=== PATIENT | male | born 1955 | race African-American/Black ===

== ENCOUNTER 2016-08-23 11:55 | Inpatient (IN) | payer OTHER ==
[2016-08-23 12:51] VITALS: BMI 25.2
--- NOTE | 2016-08-23 15:13 | HP ---
CIWA Score - CIWA Score Nausea/Vomitin Muscle Tremors: 1-None Visible, but [place] Anxiety: 2 Agitation: 2 Paroxysmal Sweats: 2 Orientation: 0-Oriented Tacttile Disturbances: 1-Very Mild Itch/Numbness Auditory Disturbances: 0-None Visual Disturbances: 0-None Headache: 0-None Present CIWA-Ar Total Score: 11 Admission ROS BHS - HPI Chief Complaint: I need help to stop smoking and drinking Allergies/Adverse Reactions: Allergies Allergy/AdvReac Type Severity Reaction Status Date / Time No Known Allergies Allergy Verified 08/23/16 14:01 History of Present Illness: 61 y/o m pt with a h/o chronic alcoholism and crack dep. Exam Limitations: No Limitations - Ebola screening Have you traveled outside of the country in the last 21 days: No Have you had contact with anyone from an Ebola affected area: No Have you been sick,other than usual withdrawal symptoms: No Do you have a fever: No - Review of Systems Constitutional: Night Sweats, Changes in sleep, Unintentional Wgt. Loss (15 lbs x 6 months) EENT: reports: Dental Problems (multiple missing tetth) Respiratory: reports: Shortness of Breath Cardiac: reports: No Symptoms Reported GI: reports: Nausea Integumentary: reports: No Symptoms Reported Neuro: reports: Tremors Endocrine: reports: No Symptoms Reported Psychiatric: reports: No Sypmtoms Reported Other Systems: Reviewed and Negative Patient History - Patient Medical History Hx Anemia: No Hx Asthma: No Hx Chronic Obstructive Pulmonary Disease (COPD): No Hx Cancer: No Hx Cardiac Disorders: No Hx Congestive Heart Failure: No Hx Hypertension: Yes Hx Hypercholesterolemia: Yes Hx Pacemaker: No HX Cerebrovascular Accident: No Hx Seizures: No Hx Dementia: No Hx Diabetes: No Hx Gastrointestinal Disorders: No Hx Liver Disease: No Hx Genitourinary Disorders: No Hx Sexually Transmitted Disorders: No Hx Renal Disease (ESRD): No Hx Thyroid Disease: No Hx Human Immunodeficiency Virus (HIV): No Hx Hepatitis C: No Hx Depression: No Hx Suicide Attempt: No Hx Bipolar Disorder: No Hx Schizophrenia: No - Patient Surgical History Past Surgical History: No Hx Neurologic Surgery: No Hx Cataract Extraction: No Hx Cardiac Surgery: No Hx Lung Surgery: No Hx Breast Surgery: No Hx Breast Biopsy: No Hx Abdominal Surgery: No Hx Appendectomy: No Hx Cholecystectomy: No Hx Genitourinary Surgery: No Hx Section: No Hx Orthopedic Surgery: No Anesthesia Reaction: No - PPD History Previous Implant?: Yes Documented Results: Positive w/o proof - Reproductive History Patient is a Female of Child Bearing Age (11 -55 yrs old): No - Smoking Cessation Smoking history: Current every day smoker Have you smoked in the past 12 months: Yes Aproximately how many cigarettes per day: 7 Hx Chewing Tobacco Use: No Initiated information on smoking cessation: Yes 'Breaking Loose' booklet given: 08/23/16 - Substance & Tx. History Hx Alcohol Use: Yes Hx Substance Use: Yes Substance Use Type: Alcohol, Cocaine Hx Substance Use Treatment: Yes - Substances Abused Crack Route: Smoking Frequency: Daily Amount used: $100 Age of first use: 32 Date of Last Use: 08/22/16 Alcohol-beer Route: Oral Frequency: Daily Amount used: 2-6 pks. Age of first use: 11 Date of Last Use: 08/23/16 Marijuana Route: Smoking Frequency: 3-6 times per week Amount used: $20 Age of first use: 13 Date of Last Use: 08/22/16 Family Disease History - Family Disease History Family Disease History: Other: Mother (cva- ) Admission Physical Exam BHS - Vital Signs Vital Signs: Vital Signs - 24 hr 08/23/16 12:49 Temperature 97.2 F L Pulse Rate 94 H Respiratory 20 Rate Blood Pressure 127/78 61 y/o m pt aox3 in nad ambulating cooperating with exam. - Physical General Appearance: Yes: Disheveled, Thin, Anxious HEENTM: Yes: EOMI, Hearing grossly Normal, Normocephalic, Normal Voice, TRACY Respiratory: Yes: Chest Non-Tender, Lungs Clear, Normal Breath Sounds, No Respiratory Distress Neck: Yes: Supple Breast: Yes: Within Normal Limits Cardiology: Yes: Regular Rhythm, Regular Rate, S1, S2 Abdominal: Yes: Non Tender, Flat, Soft, Increased Bowel Sounds Genitourinary: Yes: Within Normal Limits Back: Yes: Decreased Range of Motion Musculoskeletal: Yes: Muscle Pain Extremities: Yes: Tremors (mild) Neurological: Yes: peanut shaker II-XII NML intact, Fully Oriented, Alert, Motor Strength 5/5, Normal Response, Sensory Deficit Integumentary: Yes: Moist, Other (tatoos on arms srikanth) Lymphatic: Yes: Within Normal Limits - Diagnostic (1) Alcohol dependence with uncomplicated withdrawal Current Visit: Yes Status: Chronic (2) Crack cocaine use Current Visit: Yes Status: Chronic (3) Cannabis abuse Current Visit: Yes Status: Chronic (4) Nicotine dependence Current Visit: Yes Status: Chronic Qualifiers: Nicotine product type: cigarettes Substance use status: uncomplicated Qualified Code(s): F17.210 - Nicotine dependence, cigarettes, uncomplicated Cleared for Admission [facility] - Detox or Rehab [facility] Level of Care: Medically Managed Detox Regimen/Protocol: Valium [facility] Breath Alcohol Content Breath Alcohol Content: 0.028 Urine Drug Screen - Results Drug Screen Negative: No Urine Drug Screen Results: THC-Marijuana, PUNEET-Cocaine
[2016-08-23] MEDS ORDERED: hydrOXYzine PAMOATE 25 MG CAPSULE (FP) PO PRN (15:26)
[2016-08-23] MEDS ORDERED: MAGNESIUM HYDROX 2400MG/30ML ORAL SUSPENSION 30 ML CUP PO PRN (15:26)
[2016-08-23] MEDS ORDERED: LOPERAMIDE HCL 2 MG CAPSULE PO PRN (15:26)
[2016-08-23] MEDS ORDERED: P-EPHED 60MG/TRIPROLIDI 2.5MG TABLET PO PRN (15:26)
[2016-08-23] MEDS ORDERED: guaiFENesin/D-METHORPHAN HB 10 ML UNIT-DOSE CUPS PO PRN (15:26)
[2016-08-23] MEDS ORDERED: ACETAMINOPHEN 325 MG TABLET (FP) PO PRN (15:26)
[2016-08-23] MEDS ORDERED: diazePAM 5 MG TABLET PO PRN (15:26)
[2016-08-23] MEDS ORDERED: MAG HYDROX/AL HYDROX/SIMETH 30 ML UNIT-DOSE CUP PO PRN (15:26)
[2016-08-23] MEDS ORDERED: IBUPROFEN 400 MG TABLET (FP) PO PRN (15:26)
[2016-08-23] MEDS ORDERED: NICOTINE POLACRILEX 2 MG GUM BUC PRN (15:26)
[2016-08-23] MEDS ORDERED: MENTHOL/PHENOL 1 EACH UD MM PRN (15:26)
[2016-08-23] MEDS ORDERED: MAGNESIUM CITRATE 300 ML BOTTLE PO PRN (15:26)
[2016-08-23] MEDS ORDERED: diazePAM 5 MG TABLET PO ONE (15:33)
[2016-08-23] MEDS: THIAMINE HCL 100 MG TABLET (FP) PO SCH (22:26)
[2016-08-23] MEDS: diazePAM 5 MG TABLET PO SCH (22:26)
[2016-08-23] MEDS: diphenhydrAMINE HCL 50 MG CAPSULE PO PRN (22:26)
[2016-08-24] MEDS: diazePAM 5 MG TABLET PO SCH ×3 (05:53→22:30)
[2016-08-24] MEDS: PRENATAL VITAMINS W/ FOLIC ACID TABLET (FP) PO SCH (10:19)
[2016-08-24] MEDS: NICOTINE 7 MG/24 HOURS TOPICAL PATCH TD SCH (10:20)
--- NOTE | 2016-08-24 10:30 | PN ---
S CIWA - CIWA Score Nausea/Vomitin Muscle Tremors: 2 Anxiety: 2 Agitation: 2 Paroxysmal Sweats: 2 Orientation: 0-Oriented Tacttile Disturbances: 1-Very Mild Itch/Numbness Auditory Disturbances: 0-None Visual Disturbances: 0-None Headache: 0-None Present CIWA-Ar Total Score: 11 BHS Progress Note (SOAP) Subjective: interrupted sleep, but feeling better Objective: 08/24/16 10:25 08/24/16 10:30 Vital Signs Temperature 97.2 F L 08/24/16 09:38 Pulse Rate 80 08/24/16 09:38 Respiratory Rate 18 08/24/16 09:38 Blood Pressure 136/89 08/24/16 09:38 O2 Sat by Pulse Oximetry (%) pending labs pt aox3 in nad ambulating Assessment: 08/24/16 10:30 withdrawal sx's Plan: cont. detox increase fluids f/up pending labs
[2016-08-24 10:43] LABS: MCH 34.9 pg (25.7-33.7); MCHC 34.2 g/dl (32.0-35.9); PLATELET COUNT 255 K/MM3 (134-434); RDW 12.3 % (11.9-15.9); WHITE BLOOD COUNT 8.1 K/mm3 (4.0-10.0)
[2016-08-24 10:56] LABS: ALBUMIN 3.9 g/dl (3.4-5.0); BILIRUBIN,TOTAL 0.4 mg/dL (0.2-1.0); CALCIUM 9.6 mg/dL (8.5-10.1); COCKROFT - GAULT 55.07; CREATININE 1.5 mg/dL (0.7-1.3); TOT PROT 7.8 g/dl (6.4-8.2)
--- NOTE | 2016-08-24 13:22 | EKG ---
Test Reason : Blood Pressure : / mmHG Vent. Rate : 080 BPM Atrial Rate : 080 BPM P-R Int : 190 ms QRS Dur : 140 ms QT Int : 406 ms P-R-T Axes : 080 065 045 degrees QTc Int : 468 ms NORMAL SINUS RHYTHM RIGHT BUNDLE BRANCH BLOCK ABNORMAL ECG NO PREVIOUS ECGS AVAILABLE Confirmed by KADEN SHEN MD ([id number]) on 08/24/2016 1:22:30 PM Referred By: Confirmed By:KADEN SHEN MD
[2016-08-24 16:30] LABS: URINE APPEARANCE CLEAR; URINE BILIRUBIN NEGATIVE (NEGATIVE); URINE COLOR LTYELLOW; URINE GLUCOSE (UA) NEGATIVE (NEGATIVE); URINE KETONE NEGATIVE (NEGATIVE); URINE LEUK ESTERASE NEGATIVE (NEGATIVE); URINE NITRITE NEGATIVE (NEGATIVE); URINE PROTEIN NEGATIVE (NEGATIVE); URINE UROBILINOGEN NEGATIVE E.U./dl (0.2-1.0)
[2016-08-24 16:50] LABS: URINE BLOOD 1+ (NEGATIVE)
[2016-08-24 17:10] LABS: URINE MUCUS RARE; URINE RBC <1 /hpf (0-3); URINE WBC 2 /hpf (3-5)
[2016-08-24] MEDS: diphenhydrAMINE HCL 50 MG CAPSULE PO PRN (22:29)
[2016-08-24] MEDS: THIAMINE HCL 100 MG TABLET (FP) PO SCH (22:31)
[2016-08-25] MEDS: PRENATAL VITAMINS W/ FOLIC ACID TABLET (FP) PO SCH (10:18)
[2016-08-25] MEDS: diazePAM 5 MG TABLET PO SCH ×2 (10:18→22:29)
[2016-08-25] MEDS: NICOTINE 7 MG/24 HOURS TOPICAL PATCH TD SCH (10:20)
[2016-08-25] MEDS: THIAMINE HCL 100 MG TABLET (FP) PO SCH (22:29)
[2016-08-25] MEDS: diphenhydrAMINE HCL 50 MG CAPSULE PO PRN (22:29)
--- NOTE | 2016-08-26 08:59 | PN ---
[facility] CIWA - CIWA Score Nausea/Vomitin-No Nausea/No Vomiting Muscle Tremors: 3 Anxiety: 3 Agitation: 2 Paroxysmal Sweats: 2 Orientation: 0-Oriented Tacttile Disturbances: 0-None Auditory Disturbances: 0-None Visual Disturbances: 0-None Headache: 0-None Present CIWA-Ar Total Score: 10 S Progress Note (SOAP) Subjective: sweats interrupted sleep body aches Objective: 08/25/16 08:57 Vital Signs Temperature 97.5 F L 08/26/16 06:23 Pulse Rate 64 08/26/16 06:23 Respiratory Rate 18 08/26/16 06:23 Blood Pressure 133/87 08/26/16 06:23 O2 Sat by Pulse Oximetry (%) Laboratory Tests 08/24/16 08/24/16 08/24/16 06:00 06:00 06:00 WBC 8.1 RBC 4.28 Hgb 14.9 Hct 43.6 MCV 102.0 H MCHC 34.2 RDW 12.3 Plt Count 255 MPV 12.0 H Sodium 141 Potassium 3.8 Chloride 103 Carbon Dioxide 28 Anion Gap 10 BUN 14 Creatinine 1.5 H Creat Clearance w eGFR 47.58 Random Glucose 72 L Calcium 9.6 Total Bilirubin 0.4 AST 29 ALT 25 Alkaline Phosphatase 93 Total Protein 7.8 Albumin 3.9 Urine Color Urine Appearance Urine pH Ur Specific [place] Urine Protein Urine Glucose (UA) Urine Ketones Urine Blood Urine Nitrite Urine Bilirubin Urine Urobilinogen Ur Leukocyte Esterase Urine RBC Urine WBC Ur Epithelial Cells Urine Mucus RPR Titer Nonreactive 08/24/16 15:57 WBC RBC Hgb Hct MCV MCHC RDW Plt Count MPV Sodium Potassium Chloride Carbon Dioxide Anion Gap BUN Creatinine Creat Clearance w eGFR Random Glucose Calcium Total Bilirubin AST ALT Alkaline Phosphatase Total Protein Albumin Urine Color Ltyellow Urine Appearance Clear Urine pH 5.0 Ur Specific [place] 1.015 Urine Protein Negative Urine Glucose (UA) Negative Urine Ketones Negative Urine Blood 1+ H Urine Nitrite Negative Urine Bilirubin Negative Urine Urobilinogen Negative Ur Leukocyte Esterase Negative Urine RBC <1 Urine WBC 2 Ur Epithelial Cells Rare Urine Mucus Rare RPR Titer awake/alert ambulating no acute distress Assessment: 08/25/16 08:58 withdrawal sx Plan: continue detox increase fluids
--- NOTE | 2016-08-26 09:03 | PN ---
S Progress Note (SOAP) Subjective: ALERT,IRRITABLE,ANXIOUS,INTERRUPTED SLEEP, Objective: 08/26/16 09:02 Vital Signs Temperature 97.5 F L 08/26/16 06:23 Pulse Rate 64 08/26/16 06:23 Respiratory Rate 18 08/26/16 06:23 Blood Pressure 133/87 08/26/16 06:23 O2 Sat by Pulse Oximetry (%) Assessment: 08/26/16 09:02 WITHDRAWAL SYMPTOM Plan: CONTINUE DETOX,DISCHARGE IN AM
[2016-08-26] MEDS: diazePAM 5 MG TABLET PO SCH ×2 (10:17→22:29)
[2016-08-26] MEDS: PRENATAL VITAMINS W/ FOLIC ACID TABLET (FP) PO SCH (10:17)
[2016-08-26] MEDS: NICOTINE 7 MG/24 HOURS TOPICAL PATCH TD SCH (10:18)
[2016-08-26] MEDS: diphenhydrAMINE HCL 50 MG CAPSULE PO PRN (22:29)
[2016-08-26] MEDS: THIAMINE HCL 100 MG TABLET (FP) PO SCH (22:29)
[2016-08-27 06:33] VITALS: BP 120/81; PULSE 68; TEMP 97.5
[2016-08-27] MEDS ORDERED: diazePAM 5 MG TABLET PO SCH (10:00)
--- NOTE | 2016-08-27 15:04 | DS ---
[facility] Detox Discharge Summary Admission Date: 08/23/16 Discharge Date: 08/27/16 - History Present History: Alcohol Dependence, Cannabis Dependence Pertinent Past History: HTN, HLD - Physical Exam Results Vital Signs: Vital Signs Temperature 97.5 F L 08/27/16 06:00 Pulse Rate 68 08/27/16 06:00 Respiratory Rate 18 08/27/16 06:00 Blood Pressure 120/81 08/27/16 06:00 O2 Sat by Pulse Oximetry (%) Pertinent Admission Physical Exam Findings: withdrawal sx Laboratory Last Values WBC 8.1 K/mm3 (4.0-10.0) 08/24/16 06:00 RBC 4.28 M/mm3 (4.00-5.60) 08/24/16 06:00 Hgb 14.9 GM/dL (11.7-16.9) 08/24/16 06:00 Hct 43.6 % (35.4-49) 08/24/16 06:00 MCV 102.0 fl (80-96) H 08/24/16 06:00 MCHC 34.2 g/dl (32.0-35.9) 08/24/16 06:00 RDW 12.3 % (11.9-15.9) 08/24/16 06:00 Plt Count 255 K/MM3 (134-434) 08/24/16 06:00 MPV 12.0 fl (7.5-11.1) H 08/24/16 06:00 Sodium 141 mmol/L (136-145) 08/24/16 06:00 Potassium 3.8 mmol/L (3.5-5.1) 08/24/16 06:00 Chloride 103 mmol/L (98-107) 08/24/16 06:00 Carbon Dioxide 28 mmol/L (21-32) 08/24/16 06:00 Anion Gap 10 (8-16) 08/24/16 06:00 BUN 14 mg/dL (7-18) 08/24/16 06:00 Creatinine 1.5 mg/dL (0.7-1.3) H 08/24/16 06:00 Creat Clearance w eGFR 47.58 (>60) 08/24/16 06:00 Random Glucose 72 mg/dL (74-106) L 08/24/16 06:00 Calcium 9.6 mg/dL (8.5-10.1) 08/24/16 06:00 Total Bilirubin 0.4 mg/dL (0.2-1.0) 08/24/16 06:00 AST 29 U/L (15-37) 08/24/16 06:00 ALT 25 U/L (12-78) 08/24/16 06:00 Alkaline Phosphatase 93 U/L (45-117) 08/24/16 06:00 Total Protein 7.8 g/dl (6.4-8.2) 08/24/16 06:00 Albumin 3.9 g/dl (3.4-5.0) 08/24/16 06:00 Urine Color Ltyellow 08/24/16 15:57 Urine Appearance Clear 08/24/16 15:57 Urine pH 5.0 (5.0-8.0) 08/24/16 15:57 Ur Specific [place] 1.015 (1.001-1.035) 08/24/16 15:57 Urine Protein Negative (NEGATIVE) 08/24/16 15:57 Urine Glucose (UA) Negative (NEGATIVE) 08/24/16 15:57 Urine Ketones Negative (NEGATIVE) 08/24/16 15:57 Urine Blood 1+ (NEGATIVE) H 08/24/16 15:57 Urine Nitrite Negative (NEGATIVE) 08/24/16 15:57 Urine Bilirubin Negative (NEGATIVE) 08/24/16 15:57 Urine Urobilinogen Negative E.U./dl (0.2-1.0) 08/24/16 15:57 Ur Leukocyte Esterase Negative (NEGATIVE) 08/24/16 15:57 Urine RBC <1 /hpf (0-3) 08/24/16 15:57 Urine WBC 2 /hpf (3-5) 08/24/16 15:57 Ur Epithelial Cells Rare /hpf (FEW) 08/24/16 15:57 Urine Mucus Rare 08/24/16 15:57 RPR Titer Nonreactive (NONREACTIVE) 08/24/16 06:00 Labs noted - Treatment Hospital Course: Detox Protocol Followed, Detoxed Safely, Responded well, Discharged Condition Good - Medication Discharge Medications: Ambulatory Orders Unobtainable [Unobtainable] 08/23/16 - Diagnosis (1) Alcohol dependence with uncomplicated withdrawal Status: Acute (2) Cannabis abuse Status: Acute (3) Crack cocaine use Status: Acute (4) Nicotine dependence Status: Acute Qualifiers: Nicotine product type: cigarettes Substance use status: uncomplicated Qualified Code(s): F17.210 - Nicotine dependence, cigarettes, uncomplicated - AMA Did Patient Leave Against Medical Advice: No
== END 2016-08-27 09:42 | disposition home or self-care (01) | DRG 774 ==
LOC: YASAS 11:55 → Y6N 14:36
PROVIDERS: ADMIT Internal Medicine Addiction Medicine; ATTEND Internal Medicine Addiction Medicine
PROC: HZ2ZZZZ Detoxification Services for Substance Abuse Treatment (ICD-10-PCS; principal; 2016-08-27)
DX: F10.230 Alcohol dependence with withdrawal, uncomplicated (principal); F14.20 Cocaine dependence, uncomplicated; F17.210 Nicotine dependence, cigarettes, uncomplicated; F12.20 Cannabis dependence, uncomplicated; E78.00 Pure hypercholesterolemia, unspecified
CPT/HCPCS: 36415; 71010-TC; 80053; 81003; 81015; 85027; 86593; 93005; 93010

== ENCOUNTER 2017-06-23 13:50 | Inpatient (IN) | payer OTHER ==
[2017-06-23 17:51] VITALS: BMI 26.1
--- NOTE | 2017-06-23 21:54 | HP ---
CIWA Score - CIWA Score Nausea/Vomitin Muscle Tremors: 4-Moderate,w/Arms Extend Anxiety: 4-Mod. Anxious/Guarded Agitation: 4-Moderately Restless Paroxysmal Sweats: 1-Minimal Palms Moist Orientation: 1-Uncertain about Date Tacttile Disturbances: 0-None Auditory Disturbances: 0-None Visual Disturbances: 0-None Headache: 2-Mild CIWA-Ar Total Score: 18 Admission ROS S - HPI Chief Complaint: Alcohol withdrawal symptoms Allergies/Adverse Reactions: Allergies Allergy/AdvReac Type Severity Reaction Status Date / Time No Known Allergies Allergy Verified 06/23/17 21:46 History of Present Illness: 62 years old male with a long history of alcohol withdrawal is seeking admission to detox. Patient has been in previous detox and reports 10 years of sobriety, when he was in assisted. He has medical history of HTN and hypercholesterolemia and is not currently on any prescribed medication. He denies suicidal ideation at this time. Exam Limitations: No Limitations - Ebola screening Have you traveled outside of the country in the last 21 days: No (N) Have you had contact with anyone from an Ebola affected area: No Have you been sick,other than usual withdrawal symptoms: No Do you have a fever: No - Review of Systems Constitutional: Loss of Appetite, Malaise, Night Sweats, Changes in sleep EENT: reports: No Symptoms Reported Respiratory: reports: No Symptoms reported Cardiac: reports: No Symptoms Reported GI: reports: Poor Appetite, Poor Fluid Intake, Abdominal cramping : reports: No Symptoms Reported Musculoskeletal: reports: Back Pain, Muscle Pain, Muscle Weakness Neuro: reports: Tingling, Tremors Endocrine: reports: No Symptoms Reported Hematology: reports: No Symptoms Reported Psychiatric: reports: Mood/Affect Appropiate, Orientated x3 Other Systems: Reviewed and Negative Patient History - Patient Medical History Hx Anemia: No Hx Asthma: No Hx Chronic Obstructive Pulmonary Disease (COPD): No Hx Cancer: No Hx Cardiac Disorders: No Hx Congestive Heart Failure: No Hx Hypertension: Yes (Not on medication) Hx Hypercholesterolemia: Yes (Not on medication) Hx Pacemaker: No HX Cerebrovascular Accident: No Hx Seizures: No Hx Dementia: No Hx Diabetes: No Hx Gastrointestinal Disorders: No Hx Liver Disease: No Hx Genitourinary Disorders: No Hx Sexually Transmitted Disorders: No Hx Renal Disease (ESRD): No Hx Thyroid Disease: No Hx Human Immunodeficiency Virus (HIV): No (Negative September 2016) Hx Hepatitis C: No Hx Depression: No Hx Suicide Attempt: No (Denies suicidal ideation at this time) Hx Bipolar Disorder: No Hx Schizophrenia: No - Patient Surgical History Past Surgical History: No Hx Neurologic Surgery: No Hx Cataract Extraction: No Hx Cardiac Surgery: No Hx Lung Surgery: No Hx Abdominal Surgery: No Hx Appendectomy: No Hx Cholecystectomy: No Hx Genitourinary Surgery: No Hx Orthopedic Surgery: No Anesthesia Reaction: No - PPD History Previous Implant?: No (POASITIVE PPD, INH for A year) Implanted On Prior [facility] Admission?: No PPD to be Administered?: No - Reproductive History Patient is a Female of Child Bearing Age (11 -55 yrs old): No (MALE) - Smoking Cessation Smoking history: Current every day smoker Have you smoked in the past 12 months: Yes Aproximately how many cigarettes per day: 7 Hx Chewing Tobacco Use: No Initiated information on smoking cessation: Yes 'Breaking Loose' booklet given: 06/23/17 - Substance & Tx. History Hx Alcohol Use: Yes Hx Substance Use: Yes Substance Use Type: Cocaine, Marijuana Hx Substance Use Treatment: Yes ([facility]) - Substances Abused Alcohol Route: Oral Frequency: Daily Amount used: Beer- 2-6pks Age of first use: 32 Date of Last Use: 06/22/17 Cocaine Route: Smoking Frequency: Daily Amount used: $100-200 Age of first use: 11 Date of Last Use: 06/22/17 Marijuana/Hashish Route: Smoking Frequency: 1-2 times per week Amount used: 2 [place] Age of first use: 11 Date of Last Use: 06/22/17 Family Disease History - Family Disease History Family Disease History: Other: Mother (cva- ) Admission Physical Exam S - Vital Signs Vital Signs: Vital Signs - 24 hr 06/23/17 17:49 Temperature 95.7 F L Pulse Rate 82 Respiratory 20 Rate Blood Pressure 134/81 - Physical General Appearance: Yes: Moderate Distress HEENTM: Yes: Normal ENT Inspection, Normal Voice, TRACY Respiratory: Yes: Lungs Clear, Normal Breath Sounds, No Respiratory Distress Neck: Yes: Supple Breast: Yes: Breast Exam Deferred Cardiology: Yes: Regular Rhythm, Regular Rate, S1, S2 Abdominal: Yes: Normal Bowel Sounds, Soft Genitourinary: Yes: Within Normal Limits Back: Yes: Normal Inspection Musculoskeletal: Yes: Muscle Pain Neurological: Yes: Alert, Normal Mood/Affect Integumentary: Yes: Dry Lymphatic: Yes: Within Normal Limits - Diagnostic (1) Hypertension Current Visit: Yes Status: Chronic (2) Hypercholesteremia Current Visit: Yes Status: Chronic (3) Alcohol dependence with uncomplicated withdrawal Current Visit: Yes Status: Chronic (4) Cannabis abuse Current Visit: Yes Status: Chronic (5) Crack cocaine use Current Visit: Yes Status: Chronic (6) Nicotine dependence Current Visit: Yes Status: Chronic Qualifiers: Nicotine product type: cigarettes Substance use status: uncomplicated Qualified Code(s): F17.210 - Nicotine dependence, cigarettes, uncomplicated BHS Breath Alcohol Content Breath Alcohol Content: 0 Urine Drug Screen - Results Drug Screen Negative: No Urine Drug Screen Results: THC-Marijuana, PUNEET-Cocaine
[2017-06-23] MEDS ORDERED: MAG HYDROX/AL HYDROX/SIMETH 30 ML UNIT-DOSE CUP PO PRN (22:04)
[2017-06-23] MEDS ORDERED: MENTHOL/PHENOL 1 EACH UD MM PRN (22:04)
[2017-06-23] MEDS ORDERED: chlordiazePOXIDE HCL 25 MG CAPSULE PO PRN (22:04)
[2017-06-23] MEDS ORDERED: MAGNESIUM HYDROX 2400MG/30ML ORAL SUSPENSION 30 ML CUP PO PRN (22:04)
[2017-06-23] MEDS ORDERED: P-EPHED 60MG/TRIPROLIDI 2.5MG TABLET PO PRN (22:04)
[2017-06-23] MEDS ORDERED: guaiFENesin/D-METHORPHAN HB 10 ML UNIT-DOSE CUPS PO PRN (22:04)
[2017-06-23] MEDS ORDERED: LOPERAMIDE HCL 2 MG CAPSULE PO PRN (22:04)
[2017-06-23] MEDS ORDERED: MAGNESIUM CITRATE 300 ML BOTTLE PO PRN (22:04)
[2017-06-23] MEDS ORDERED: ACETAMINOPHEN 325 MG TABLET (FP) PO PRN (22:04)
[2017-06-23] MEDS ORDERED: IBUPROFEN 400 MG TABLET (FP) PO PRN (22:04)
[2017-06-23] MEDS: chlordiazePOXIDE HCL 25 MG CAPSULE PO SCH (23:06)
[2017-06-24 02:21] LABS: URINE APPEARANCE CLEAR; URINE BILIRUBIN NEGATIVE (NEGATIVE); URINE BLOOD NEGATIVE (NEGATIVE); URINE COLOR LTYELLOW; URINE GLUCOSE (UA) NEGATIVE (NEGATIVE); URINE KETONE NEGATIVE (NEGATIVE); URINE LEUK ESTERASE NEGATIVE (NEGATIVE); URINE NITRITE NEGATIVE (NEGATIVE); URINE PROTEIN NEGATIVE (NEGATIVE); URINE UROBILINOGEN NEGATIVE mg/dL (0.2-1.0)
[2017-06-24] MEDS: chlordiazePOXIDE HCL 25 MG CAPSULE PO SCH ×4 (05:11→22:14)
[2017-06-24] MEDS: NICOTINE POLACRILEX 2 MG GUM BC PRN (10:08)
[2017-06-24] MEDS: PRENATAL VITAMINS W/ FOLIC ACID TABLET (FP) PO SCH (10:08)
[2017-06-24] MEDS: NICOTINE 14 MG/24 HOURS TOPICAL PATCH TD SCH (10:08)
[2017-06-24 11:14] LABS: ALBUMIN 3.2 g/dl (3.4-5.0); ANION GAP 10 (8-16); BLOOD UREA NITROGEN 14 mg/dL (7-18); CALCIUM 9.1 mg/dL (8.5-10.1); CHLORIDE 105 mmol/L (98-107); CO2 25 mmol/L (21-32); CREATININE 1.3 mg/dL (0.7-1.3); GLUCOSE,RANDOM 99 mg/dL (74-106); HEMATOCRIT 40.2 % (35.4-49); HEMOGLOBIN 13.8 GM/dL (11.7-16.9); MCH 34.5 pg (25.7-33.7); MCHC 34.2 g/dl (32.0-35.9); MEAN CELL VOLUME 100.9 fl (80-96); MEAN PLT VOLUME 11.4 fl (7.5-11.1); PLATELET COUNT 238 K/MM3 (134-434); POTASSIUM 4.4 mmol/L (3.5-5.1); RBC 3.98 M/mm3 (4.00-5.60); RDW 12.2 % (11.9-15.9); SGOT/AST 22 U/L (15-37); SGPT/ALT 21 U/L (12-78); SODIUM 140 mmol/L (136-145); WHITE BLOOD COUNT 5.9 K/mm3 (4.0-10.0)
[2017-06-24 11:15] LABS: ALK PHOS 90 U/L (45-117); BILIRUBIN,TOTAL 0.4 mg/dL (0.2-1.0); TOT PROT 6.7 g/dl (6.4-8.2)
[2017-06-24] MEDS ORDERED: FLU VACCINE QUAD 60 MCG/0.5 ML (MDV 17-18) IM ONE (12:00)
--- NOTE | 2017-06-24 13:53 | PN ---
S CIWA - CIWA Score Nausea/Vomitin-No Nausea/No Vomiting Muscle Tremors: 2 Anxiety: 4-Mod. Anxious/Guarded Agitation: 3 Paroxysmal Sweats: 2 Orientation: 0-Oriented Tacttile Disturbances: 3-Moderate Itch/Numb/Burn Auditory Disturbances: 1-Very Mild Visual Disturbances: 0-None Headache: 0-None Present CIWA-Ar Total Score: 15 BHS Progress Note (SOAP) Subjective: Sweating, Tremors, Anxious, Interrupted Sleep. Objective: PATIENT A & O X 3, OBSERVED AMBULATING ON UNIT. NO ACUTE DISTRESS. 06/24/17 13:55 Vital Signs Temperature 96.7 F L 06/24/17 13:39 Pulse Rate 78 06/24/17 13:39 Respiratory Rate 18 06/24/17 13:39 Blood Pressure 120/83 06/24/17 13:39 O2 Sat by Pulse Oximetry (%) Laboratory Tests 06/23/17 06/24/17 06/24/17 22:58 07:50 07:50 WBC 5.9 RBC 3.98 L Hgb 13.8 Hct 40.2 MCV 100.9 H MCH 34.5 H MCHC 34.2 RDW 12.2 Plt Count 238 MPV 11.4 H Sodium 140 Potassium 4.4 Chloride 105 Carbon Dioxide 25 Anion Gap 10 BUN 14 Creatinine 1.3 Creat Clearance w eGFR 55.94 Random Glucose 99 D Calcium 9.1 Total Bilirubin 0.4 AST 22 D ALT 21 Alkaline Phosphatase 90 Total Protein 6.7 Albumin 3.2 L Urine Color Ltyellow Urine Appearance Clear Urine pH 7.0 D Ur Specific [place] 1.008 Urine Protein Negative Urine Glucose (UA) Negative Urine Ketones Negative Urine Blood Negative Urine Nitrite Negative Urine Bilirubin Negative Urine Urobilinogen Negative Ur Leukocyte Esterase Negative LABS NOTED. RPR RESULT PENDING. 06/24/17 13:56 Assessment: 06/24/17 13:55 WITHDRAWAL SYMPTOMS. Plan: CONTINUE DETOX. INCREASE DAILY PO FLUID INTAKE.
[2017-06-24] MEDS: THIAMINE HCL 100 MG TABLET (FP) PO SCH (22:14)
[2017-06-25] MEDS: chlordiazePOXIDE HCL 25 MG CAPSULE PO SCH ×3 (05:31→17:37)
[2017-06-25] MEDS: PRENATAL VITAMINS W/ FOLIC ACID TABLET (FP) PO SCH (10:12)
[2017-06-25] MEDS: NICOTINE 14 MG/24 HOURS TOPICAL PATCH TD SCH (10:12)
--- NOTE | 2017-06-25 13:16 | PN ---
S CIWA - CIWA Score Nausea/Vomitin Muscle Tremors: 4-Moderate,w/Arms Extend Anxiety: 4-Mod. Anxious/Guarded Agitation: 4-Moderately Restless Paroxysmal Sweats: 3 Orientation: 0-Oriented Tacttile Disturbances: 1-Very Mild Itch/Numbness Auditory Disturbances: 0-None Visual Disturbances: 0-None Headache: 0-None Present CIWA-Ar Total Score: 19 BHS Progress Note (SOAP) Subjective: Anxious, restless, sweating Objective: 06/25/17 13:14 Last Vital Signs Temp Pulse Resp BP Pulse Ox 97.9 F 84 20 127/88 06/25/17 09:44 06/25/17 09:44 06/25/17 09:44 06/25/17 09:44 Laboratory Tests 06/23/17 06/24/17 06/24/17 22:58 07:50 07:50 WBC 5.9 RBC 3.98 L Hgb 13.8 Hct 40.2 MCV 100.9 H MCH 34.5 H MCHC 34.2 RDW 12.2 Plt Count 238 MPV 11.4 H Sodium 140 Potassium 4.4 Chloride 105 Carbon Dioxide 25 Anion Gap 10 BUN 14 Creatinine 1.3 Creat Clearance w eGFR 55.94 Random Glucose 99 D Calcium 9.1 Total Bilirubin 0.4 AST 22 D ALT 21 Alkaline Phosphatase 90 Total Protein 6.7 Albumin 3.2 L Urine Color Ltyellow Urine Appearance Clear Urine pH 7.0 D Ur Specific [place] 1.008 Urine Protein Negative Urine Glucose (UA) Negative Urine Ketones Negative Urine Blood Negative Urine Nitrite Negative Urine Bilirubin Negative Urine Urobilinogen Negative Ur Leukocyte Esterase Negative Labs noted Assessment: 06/25/17 13:15 Withdrawal symptoms Plan: Continue detox Encouraged to drink more water for hydration
--- NOTE | 2017-06-25 14:30 | EKG ---
Test Reason : Blood Pressure : / mmHG Vent. Rate : 073 BPM Atrial Rate : 073 BPM P-R Int : 184 ms QRS Dur : 140 ms QT Int : 430 ms P-R-T Axes : 077 049 031 degrees QTc Int : 473 ms NORMAL SINUS RHYTHM RIGHT BUNDLE BRANCH BLOCK ABNORMAL ECG Confirmed by MD JENKINS GREGORY ([id number]) on 06/25/2017 2:30:23 PM Referred By: Confirmed By:FABI JENKINS MD
[2017-06-25] MEDS: chlordiazePOXIDE 5 MG CAPSULE PO SCH (22:15)
[2017-06-25] MEDS: THIAMINE HCL 100 MG TABLET (FP) PO SCH (22:15)
[2017-06-26] MEDS: chlordiazePOXIDE 5 MG CAPSULE PO SCH ×3 (05:45→17:27)
[2017-06-26] MEDS: PRENATAL VITAMINS W/ FOLIC ACID TABLET (FP) PO SCH (10:23)
[2017-06-26] MEDS: NICOTINE 14 MG/24 HOURS TOPICAL PATCH TD SCH (10:24)
[2017-06-26] MEDS: NICOTINE POLACRILEX 2 MG GUM BC PRN (10:26)
--- NOTE | 2017-06-26 11:01 | PN ---
BHS Progress Note (SOAP) Subjective: ANXIETY,SWEATS, FATIGUE. Objective: 06/26/17 11:01 Vital Signs Temperature 96.7 F L 06/26/17 09:39 Pulse Rate 76 06/26/17 09:39 Respiratory Rate 18 06/26/17 09:39 Blood Pressure 149/86 06/26/17 09:39 O2 Sat by Pulse Oximetry (%) Laboratory Last Values WBC 5.9 K/mm3 (4.0-10.0) 06/24/17 07:50 RBC 3.98 M/mm3 (4.00-5.60) L 06/24/17 07:50 Hgb 13.8 GM/dL (11.7-16.9) 06/24/17 07:50 Hct 40.2 % (35.4-49) 06/24/17 07:50 MCV 100.9 fl (80-96) H 06/24/17 07:50 MCH 34.5 pg (25.7-33.7) H 06/24/17 07:50 MCHC 34.2 g/dl (32.0-35.9) 06/24/17 07:50 RDW 12.2 % (11.9-15.9) 06/24/17 07:50 Plt Count 238 K/MM3 (134-434) 06/24/17 07:50 MPV 11.4 fl (7.5-11.1) H 06/24/17 07:50 Sodium 140 mmol/L (136-145) 06/24/17 07:50 Potassium 4.4 mmol/L (3.5-5.1) 06/24/17 07:50 Chloride 105 mmol/L (98-107) 06/24/17 07:50 Carbon Dioxide 25 mmol/L (21-32) 06/24/17 07:50 Anion Gap 10 (8-16) 06/24/17 07:50 BUN 14 mg/dL (7-18) 06/24/17 07:50 Creatinine 1.3 mg/dL (0.7-1.3) 06/24/17 07:50 Creat Clearance w eGFR 55.94 (>60) 06/24/17 07:50 Random Glucose 99 mg/dL (74-106) D 06/24/17 07:50 Calcium 9.1 mg/dL (8.5-10.1) 06/24/17 07:50 Total Bilirubin 0.4 mg/dL (0.2-1.0) 06/24/17 07:50 AST 22 U/L (15-37) D 06/24/17 07:50 ALT 21 U/L (12-78) 06/24/17 07:50 Alkaline Phosphatase 90 U/L (45-117) 06/24/17 07:50 Total Protein 6.7 g/dl (6.4-8.2) 06/24/17 07:50 Albumin 3.2 g/dl (3.4-5.0) L 06/24/17 07:50 Urine Color Ltyellow 06/23/17 22:58 Urine Appearance Clear 06/23/17 22:58 Urine pH 7.0 (5.0-8.0) D 06/23/17 22:58 Ur Specific [place] 1.008 (1.001-1.035) 06/23/17 22:58 Urine Protein Negative (NEGATIVE) 06/23/17 22:58 Urine Glucose (UA) Negative (NEGATIVE) 06/23/17 22:58 Urine Ketones Negative (NEGATIVE) 06/23/17 22:58 Urine Blood Negative (NEGATIVE) 06/23/17 22:58 Urine Nitrite Negative (NEGATIVE) 06/23/17 22:58 Urine Bilirubin Negative (NEGATIVE) 06/23/17 22:58 Urine Urobilinogen Negative mg/dL (0.2-1.0) 06/23/17 22:58 Ur Leukocyte Esterase Negative (NEGATIVE) 06/23/17 22:58 RPR Titer Nonreactive (NONREACTIVE) 06/24/17 07:50 Assessment: 06/26/17 11:01 WITHDRAWAL SX Plan: CONTINUE DETOX
[2017-06-26] MEDS: THIAMINE HCL 100 MG TABLET (FP) PO SCH (22:12)
[2017-06-26] MEDS: chlordiazePOXIDE HCL 10 MG CAPSULE PO SCH (22:12)
[2017-06-27] MEDS: chlordiazePOXIDE HCL 10 MG CAPSULE PO SCH ×2 (05:44→10:08)
--- NOTE | 2017-06-27 08:53 | DS ---
[facility] Detox Discharge Summary Admission Date: 06/23/17 Discharge Date: 06/27/17 - History Present History: Alcohol Dependence Additional Comments: DETOX COMPLETED.ALERT O X 3. NAD. REFERRED TO [facility]. Pertinent Past History: SEE DX BELOW - Physical Exam Results Vital Signs: Vital Signs Temperature 95.9 F L 06/27/17 06:10 Pulse Rate 69 06/27/17 06:10 Respiratory Rate 18 06/27/17 06:10 Blood Pressure 138/84 06/27/17 06:10 O2 Sat by Pulse Oximetry (%) Pertinent Admission Physical Exam Findings: WITHDRAWAL SX - Treatment Hospital Course: Detox Protocol Followed, Detoxed Safely, Responded well, Discharged Condition Good, Rehab Referral Accepted Patient has Accepted a Rehab Referral to: [facility] - Medication Discharge Medications: Ambulatory Orders Unobtainable [Unobtainable] 08/23/16 - Diagnosis (1) Alcohol dependence with uncomplicated withdrawal Current Visit: Yes Status: Acute (2) Hypercholesteremia Current Visit: Yes Status: Chronic (3) Hypertension Current Visit: Yes Status: Chronic Qualifiers: Hypertension type: essential hypertension Qualified Code(s): I10 - Essential (primary) hypertension (4) Nicotine dependence Current Visit: Yes Status: Chronic Qualifiers: Nicotine product type: cigarettes Substance use status: uncomplicated Qualified Code(s): F17.210 - Nicotine dependence, cigarettes, uncomplicated - AMA Did Patient Leave Against Medical Advice: No
[2017-06-27 09:13] VITALS: BP 142/93; PULSE 79; TEMP 97
[2017-06-27] MEDS: NICOTINE 14 MG/24 HOURS TOPICAL PATCH TD SCH (10:07)
[2017-06-27] MEDS: PRENATAL VITAMINS W/ FOLIC ACID TABLET (FP) PO SCH (10:07)
== END 2017-06-27 11:46 | disposition other institution (70) | DRG 774 ==
LOC: YASAS 13:50 → Y3N 18:37
PROVIDERS: ADMIT Internal Medicine; ATTEND Internal Medicine
PROC: HZ2ZZZZ Detoxification Services for Substance Abuse Treatment (ICD-10-PCS; principal; 2017-06-23)
DX: F10.230 Alcohol dependence with withdrawal, uncomplicated (principal); F14.10 Cocaine abuse, uncomplicated; F12.10 Cannabis abuse, uncomplicated; F17.210 Nicotine dependence, cigarettes, uncomplicated; I10 Essential (primary) hypertension; E78.00 Pure hypercholesterolemia, unspecified
CPT/HCPCS: 36415; 80053; 81003; 85027; 86593; 93005; 93010

== ENCOUNTER 2018-05-07 10:14 | Inpatient (IN) | payer OTHER ==
[2018-05-07 10:32] VITALS: BMI 24.9
--- NOTE | 2018-05-07 11:07 | HP ---
CIWA Score Nausea/Vomitin-Mild Nausea/No Vomiting Muscle Tremors: 1-None Visible, but [place] Anxiety: 2 Agitation: 2 Paroxysmal Sweats: 2 Orientation: 0-Oriented Tacttile Disturbances: 2-Mild Itch/Numbness/Burn Auditory Disturbances: 1-Very Mild Visual Disturbances: 1-Very Mild Sensitivity Headache: 1-Very Mild CIWA-Ar Total Score: 13 - Admission Criteria OASAS Guidelines: Admission for Medically Managed Detox: Requires at least one of the followin. CIWA greater than 12 2. Seizures within the past 24 hours 3. Delirium tremens within the past 24 hours 4. Hallucinations within the past 24 hours 5. Acute intervention needed for co occurring medical disorder 6. Acute intervention needed for co occurring psychiatric disorder 7. Severe withdrawal that cannot be handled at a lower level of care (continued vomiting, continued diarrhea, abnormal vital signs) requiring intravenous medication and/or fluids 8. Admission ROS [facility] Chief Complaint: WITHDRAWAL SYMPTOMS Allergies/Adverse Reactions: Allergies Allergy/AdvReac Type Severity Reaction Status Date / Time No Known Allergies Allergy Verified 05/07/18 10:46 History of Present Illness: 63 Y.O. MAN WITH A HISTORY OF ALCOHOL AND COCAINE DEPENDENCE IS HERE SEEKING REHAB SERVICES. HE WAS LAST HERE IN 06/2017. DOES NOT HAVE A SIGNIFICANT PERIOD OF SOBRIETY. Exam Limitations: No Limitations - Ebola screening Have you traveled outside of the country in the last 21 days: No Have you had contact with anyone from an Ebola affected area: No Have you been sick,other than usual withdrawal symptoms: No Do you have a fever: No - Review of Systems Constitutional: Chills, Loss of Appetite, Unintentional Wgt. Loss EENT: reports: Tearing Respiratory: reports: Shortness of Breath Cardiac: reports: No Symptoms Reported GI: reports: No Symptoms Reported : reports: No Symptoms Reported Musculoskeletal: reports: Back Pain Integumentary: reports: No Symptoms Reported Neuro: reports: Numbness, Tremors Endocrine: reports: No Symptoms Reported Hematology: reports: No Symptoms Reported Psychiatric: reports: Orientated x3 Other Systems: Reviewed and Negative Patient History - Patient Medical History Hx Anemia: No Hx Asthma: No Hx Chronic Obstructive Pulmonary Disease (COPD): No Hx Cancer: No Hx Cardiac Disorders: No Hx Congestive Heart Failure: No Hx Hypertension: Yes (non compliant with meds.) Hx Hypercholesterolemia: Yes (Not on medication) Hx Pacemaker: No HX Cerebrovascular Accident: No Hx Seizures: No Hx Dementia: No Hx Diabetes: No Hx Gastrointestinal Disorders: No Hx Liver Disease: No Hx Genitourinary Disorders: No Hx Sexually Transmitted Disorders: No Hx Renal Disease (ESRD): No Hx Thyroid Disease: No Hx Human Immunodeficiency Virus (HIV): No (Negative September 2016) Hx Hepatitis C: No Hx Depression: No Hx Suicide Attempt: No Hx Bipolar Disorder: No Hx Schizophrenia: No - Patient Surgical History Past Surgical History: Yes Hx Neurologic Surgery: No Hx Cataract Extraction: No Hx Cardiac Surgery: No Hx Lung Surgery: No Hx Breast Surgery: No Hx Breast Biopsy: No Hx Abdominal Surgery: No Hx Appendectomy: No Hx Cholecystectomy: No Hx Genitourinary Surgery: No Hx Section: No Hx Orthopedic Surgery: No Other Surgical History: LEFT LITTLE TOE AMPUTATION 2012 Anesthesia Reaction: No - PPD History Previous Implant?: Yes Documented Results: Positive w/o proof Implanted On Prior R Admission?: No PPD to be Administered?: No - Reproductive History Patient is a Female of Child Bearing Age (11 -55 yrs old): No - Smoking Cessation Smoking history: Current every day smoker Have you smoked in the past 12 months: Yes Aproximately how many cigarettes per day: 6 Hx Chewing Tobacco Use: No Initiated information on smoking cessation: Yes 'Breaking Loose' booklet given: 05/07/18 - Substance & Tx. History Hx Alcohol Use: Yes Hx Substance Use: Yes Substance Use Type: Alcohol, Cocaine - Substances Abused Alcohol Route: Oral Frequency: Daily Amount used: 12pk beer Age of first use: 11 Date of Last Use: 05/07/18 Cocaine Route: Smoking Frequency: Daily Amount used: $100 and up Age of first use: 28 Date of Last Use: 05/06/18 Family Disease History - Family Disease History Family Disease History: Other: Mother (cva- ) Admission Physical Exam [facility] - Vital Signs Vital Signs: Vital Signs - 24 hr 05/07/18 10:29 Temperature 98.0 F Pulse Rate 99 H Respiratory 16 Rate Blood Pressure 134/82 - Physical General Appearance: Yes: No Apparent Distress HEENTM: Yes: Hearing grossly Normal, Normal ENT Inspection, Normocephalic Respiratory: Yes: Normal Breath Sounds, No Respiratory Distress, No Accessory Muscle Use Neck: Yes: No masses,lesions,Nodules Breast: Yes: Breast Exam Deferred Cardiology: Yes: Regular Rhythm, Regular Rate Abdominal: Yes: Normal Bowel Sounds, Non Tender Genitourinary: Yes: Other (NO COMPLAINTS REPORTED) Back: Yes: Normal Inspection Musculoskeletal: Yes: full range of Motion, Gait Steady, Pelvis Stable Extremities: Yes: Normal Capillary Refill, Normal Inspection, Normal Range of Motion Neurological: Yes: Alert, Normal Mood/Affect, Normal Response Integumentary: Yes: Dry Lymphatic: Yes: Within Normal Limits - Diagnostic (1) Alcohol dependence with uncomplicated withdrawal Current Visit: Yes Status: Chronic (2) Cannabis abuse Current Visit: Yes Status: Chronic (3) Hypercholesteremia Current Visit: Yes Status: Chronic (4) Hypertension Current Visit: Yes Status: Chronic Qualifiers: Hypertension type: essential hypertension Qualified Code(s): I10 - Essential (primary) hypertension (5) Nicotine dependence Current Visit: Yes Status: Chronic Qualifiers: Nicotine product type: cigarettes Substance use status: uncomplicated Qualified Code(s): F17.210 - Nicotine dependence, cigarettes, uncomplicated (6) Tinea pedis, left Current Visit: Yes Status: Acute Cleared for Admission [facility] - Detox or Rehab [facility] Level of Care: Medically Managed Detox Regimen/Protocol: Librium [facility] Breath Alcohol Content Breath Alcohol Content: 0.027 Urine Drug Screen - Results Drug Screen Negative: No Urine Drug Screen Results: THC-Marijuana, PUNEET-Cocaine, FEN-Fentanyl
[2018-05-07] MEDS ORDERED: MAGNESIUM HYDROX 2400MG/30ML ORAL SUSPENSION 30 ML CUP PO PRN (11:13)
[2018-05-07] MEDS ORDERED: MAGNESIUM CITRATE 300 ML BOTTLE PO PRN (11:13)
[2018-05-07] MEDS ORDERED: MENTHOL/PHENOL 1 EACH UD MM PRN (11:13)
[2018-05-07] MEDS ORDERED: chlordiazePOXIDE HCL 25 MG CAPSULE PO PRN (11:13)
[2018-05-07] MEDS ORDERED: P-EPHED 60MG/TRIPROLIDI 2.5MG TABLET PO PRN (11:13)
[2018-05-07] MEDS ORDERED: LOPERAMIDE HCL 2 MG CAPSULE PO PRN (11:13)
[2018-05-07] MEDS ORDERED: guaiFENesin/D-METHORPHAN HB 10 ML UNIT-DOSE CUPS PO PRN (11:13)
[2018-05-07] MEDS ORDERED: MAG HYDROX/AL HYDROX/SIMETH 30 ML UNIT-DOSE CUP PO PRN (11:13)
[2018-05-07] MEDS ORDERED: chlordiazePOXIDE HCL 25 MG CAPSULE PO ONE (12:55)
[2018-05-07] MEDS: chlordiazePOXIDE HCL 25 MG CAPSULE PO SCH ×3 (13:53→22:15)
[2018-05-07] MEDS: IBUPROFEN 400 MG TABLET (FP) PO PRN (15:14)
[2018-05-07] MEDS: ACETAMINOPHEN 325 MG TABLET (FP) PO PRN (17:09)
[2018-05-07] MEDS: THIAMINE HCL 100 MG TABLET (FP) PO SCH (22:14)
[2018-05-07] MEDS: MELATONIN 5 MG TABLETS PO PRN (22:16)
[2018-05-08] MEDS: chlordiazePOXIDE HCL 25 MG CAPSULE PO SCH ×4 (05:28→22:03)
[2018-05-08] MEDS: IBUPROFEN 400 MG TABLET (FP) PO PRN ×2 (05:30→10:47)
[2018-05-08] MEDS: PRENATAL VITAMINS W/ FOLIC ACID TABLET (FP) PO SCH (10:45)
[2018-05-08 11:44] LABS: HEMATOCRIT 45.4 % (35.4-49); HEMOGLOBIN 15.2 GM/dL (11.7-16.9); MCH 34.5 pg (25.7-33.7); MCHC 33.5 g/dl (32.0-35.9); MEAN PLT VOLUME 12.1 fl (7.5-11.1); PLATELET COUNT 276 K/MM3 (134-434); RBC 4.41 M/mm3 (4.00-5.60); RDW 12.7 % (11.9-15.9); WHITE BLOOD COUNT 8.6 K/mm3 (4.0-10.0)
[2018-05-08] MEDS ORDERED: FLU VACCINE QUAD 60 MCG/0.5 ML (MDV 18-19) IM ONE (12:00)
[2018-05-08 12:02] LABS: ALBUMIN 3.9 g/dl (3.4-5.0); ALK PHOS 82 U/L (45-117); ANION GAP 12 MMOL/L (8-16); BILIRUBIN,TOTAL 0.6 mg/dL (0.2-1); BLOOD UREA NITROGEN 11 mg/dL (7-18); CALCIUM 9.8 mg/dL (8.5-10.1); CHLORIDE 102 mmol/L (98-107); CO2 23 mmol/L (21-32); CREATININE 1.4 mg/dL (0.55-1.3); GLUCOSE,RANDOM 106 mg/dL (74-106); POTASSIUM 4.4 mmol/L (3.5-5.1); SGOT/AST 21 U/L (15-37); SGPT/ALT 24 U/L (13-61); SODIUM 137 mmol/L (136-145); TOT PROT 7.7 g/dl (6.4-8.2)
--- NOTE | 2018-05-08 16:13 | PN ---
[facility] CIWA - CIWA Score Nausea/Vomitin-No Nausea/No Vomiting Muscle Tremors: 2 Anxiety: 0-No Anxiety, at Ease Agitation: 0-Normal Activity Paroxysmal Sweats: No Perspiration Orientation: 0-Oriented Tacttile Disturbances: 3-Moderate Itch/Numb/Burn Auditory Disturbances: 3-Moderate Harsh/Frighten Visual Disturbances: 1-Very Mild Sensitivity Headache: 0-None Present CIWA-Ar Total Score: 9 [facility] Progress Note (SOAP) Subjective: Interrupted sleep, Tremors, Body Aches. Objective: PATIENT A & O X 3, OBSERVED AMBULATING ON UNIT. IN NO ACUTE DISTRESS. 05/08/18 16:11 Vital Signs Temperature 96.7 F L 05/08/18 13:14 Pulse Rate 84 05/08/18 13:14 Respiratory Rate 18 05/08/18 13:14 Blood Pressure 139/83 05/08/18 13:14 O2 Sat by Pulse Oximetry (%) Laboratory Tests 05/08/18 05/08/18 05/08/18 05:45 05:45 05:45 WBC 8.6 RBC 4.41 Hgb 15.2 Hct 45.4 MCV 103.0 H MCH 34.5 H MCHC 33.5 RDW 12.7 Plt Count 276 MPV 12.1 H Sodium 137 Potassium 4.4 Chloride 102 Carbon Dioxide 23 Anion Gap 12 BUN 11 Creatinine 1.4 H Creat Clearance w eGFR 51.18 Random Glucose 106 Calcium 9.8 Total Bilirubin 0.6 AST 21 ALT 24 Alkaline Phosphatase 82 Total Protein 7.7 Albumin 3.9 RPR Titer Nonreactive LABS NOTED. Assessment: 05/08/18 16:12 WITHDRAWAL SYMPTOMS. Plan: CONTINUE DETOX. D/C IBUPROFEN AND MAGNESIUM-CONTAINING MEDS. FOR ABNORMAL ADMISSION RENAL LAB VALUES.
--- NOTE | 2018-05-08 18:19 | EKG ---
Test Reason : Blood Pressure : / mmHG Vent. Rate : 087 BPM Atrial Rate : 087 BPM P-R Int : 170 ms QRS Dur : 138 ms QT Int : 388 ms P-R-T Axes : 078 056 036 degrees QTc Int : 466 ms NORMAL SINUS RHYTHM RIGHT BUNDLE BRANCH BLOCK ABNORMAL ECG WHEN COMPARED WITH ECG OF 23-JUN-2017 22:45, NO SIGNIFICANT CHANGE WAS FOUND Confirmed by MD GREGORY, FABI ([id number]) on 05/08/2018 6:19:39 PM Referred By: Confirmed By:FABI JENKINS MD
[2018-05-08] MEDS: ACETAMINOPHEN 325 MG TABLET (FP) PO PRN (20:48)
[2018-05-08] MEDS: hydrOXYzine PAMOATE 50 MG CAPSULE (FP) PO PRN (22:03)
[2018-05-08] MEDS: THIAMINE HCL 100 MG TABLET (FP) PO SCH (22:04)
--- NOTE | 2018-05-09 00:15 | PN ---
[facility] Progress Note Note: Patient was seen and examined in bed with complaint of pain, itching and burning of bilateral toes. Warm, wet moist skin in between each toes noted. Vital Signs Temperature 98.1 F 05/08/18 21:44 Pulse Rate 79 05/08/18 21:44 Respiratory Rate 18 05/08/18 21:44 Blood Pressure 120/74 05/08/18 21:44 O2 Sat by Pulse Oximetry (%) Action: Tolnaftate 1% powder - 1appilication topical BID ordered
[2018-05-09] MEDS: chlordiazePOXIDE HCL 25 MG CAPSULE PO SCH (05:34)
--- NOTE | 2018-05-09 09:23 | PN ---
[facility] CIWA - CIWA Score Nausea/Vomitin-No Nausea/No Vomiting Muscle Tremors: 2 Anxiety: 1-Mildly Anxious Agitation: 1-Slight > Activity Paroxysmal Sweats: 1-Minimal Palms Moist Orientation: 1-Uncertain about Date Tacttile Disturbances: 1-Very Mild Itch/Numbness Auditory Disturbances: 0-None Visual Disturbances: 0-None Headache: 0-None Present CIWA-Ar Total Score: 7 S Progress Note (SOAP) Subjective: c/o of feet pain when walking especially with shoes multiple callus noted on lateral of 5th toe 1mm round and below 3th toe 0.5mm round hard on palpation no bleeding continue moist compress avoid pressure patient had callus removed 6 months ago has appointment 05/15/18 with a public finance specialist for surgical procedure tremor sweating Objective: 05/09/18 14:41 Vital Signs Temperature 98.6 F 05/09/18 09:32 Pulse Rate 84 05/09/18 09:32 Respiratory Rate 20 05/09/18 09:32 Blood Pressure 153/89 05/09/18 09:32 O2 Sat by Pulse Oximetry (%) Laboratory Last Values WBC 8.6 K/mm3 (4.0-10.0) 05/08/18 05:45 RBC 4.41 M/mm3 (4.00-5.60) 05/08/18 05:45 Hgb 15.2 GM/dL (11.7-16.9) 05/08/18 05:45 Hct 45.4 % (35.4-49) 05/08/18 05:45 MCV 103.0 fl (80-96) H 05/08/18 05:45 MCH 34.5 pg (25.7-33.7) H 05/08/18 05:45 MCHC 33.5 g/dl (32.0-35.9) 05/08/18 05:45 RDW 12.7 % (11.9-15.9) 05/08/18 05:45 Plt Count 276 K/MM3 (134-434) 05/08/18 05:45 MPV 12.1 fl (7.5-11.1) H 05/08/18 05:45 Sodium 137 mmol/L (136-145) 05/08/18 05:45 Potassium 4.4 mmol/L (3.5-5.1) 05/08/18 05:45 Chloride 102 mmol/L (98-107) 05/08/18 05:45 Carbon Dioxide 23 mmol/L (21-32) 05/08/18 05:45 Anion Gap 12 MMOL/L (8-16) 05/08/18 05:45 BUN 11 mg/dL (7-18) 05/08/18 05:45 Creatinine 1.4 mg/dL (0.55-1.3) H 05/08/18 05:45 Creat Clearance w eGFR 51.18 (>60) 05/08/18 05:45 Random Glucose 106 mg/dL (74-106) 05/08/18 05:45 Calcium 9.8 mg/dL (8.5-10.1) 05/08/18 05:45 Total Bilirubin 0.6 mg/dL (0.2-1) 05/08/18 05:45 AST 21 U/L (15-37) 05/08/18 05:45 ALT 24 U/L (13-61) 05/08/18 05:45 Alkaline Phosphatase 82 U/L (45-117) 05/08/18 05:45 Total Protein 7.7 g/dl (6.4-8.2) 05/08/18 05:45 Albumin 3.9 g/dl (3.4-5.0) 05/08/18 05:45 RPR Titer Nonreactive (NONREACTIVE) 05/08/18 05:45 lab noted Assessment: 05/09/18 14:42 withdrawal sx 05/09/18 14:42 callus of feet Plan: continue detox public finance specialist appointment 05/15/18
[2018-05-09] MEDS: chlordiazePOXIDE 5 MG CAPSULE PO SCH ×3 (10:29→22:12)
[2018-05-09] MEDS: TOLNAFTATE 1% POWDER 45 GM POW TP SCH ×2 (10:29→22:12)
[2018-05-09] MEDS: PRENATAL VITAMINS W/ FOLIC ACID TABLET (FP) PO SCH (10:29)
[2018-05-09] MEDS: ACETAMINOPHEN 325 MG TABLET (FP) PO PRN ×2 (17:39→22:13)
[2018-05-09] MEDS: MELATONIN 5 MG TABLETS PO PRN ×2 (22:12)
[2018-05-09] MEDS: THIAMINE HCL 100 MG TABLET (FP) PO SCH (22:12)
[2018-05-10] MEDS: chlordiazePOXIDE 5 MG CAPSULE PO SCH (05:27)
[2018-05-10] MEDS: ACETAMINOPHEN 325 MG TABLET (FP) PO PRN ×3 (05:30→17:41)
[2018-05-10] MEDS: PRENATAL VITAMINS W/ FOLIC ACID TABLET (FP) PO SCH (10:38)
[2018-05-10] MEDS: chlordiazePOXIDE HCL 10 MG CAPSULE PO SCH ×3 (10:38→22:17)
[2018-05-10] MEDS: TOLNAFTATE 1% POWDER 45 GM POW TP SCH ×2 (10:39→22:17)
--- NOTE | 2018-05-10 11:29 | PN ---
[facility] Progress Note (SOAP) Subjective: feeling better less tremor mild sweating discussed bill checker schedule that the patient said that his left big toe pain when walking x 6-7 months patient agrees to follow up with the bill checker Objective: 05/10/18 11:27 Vital Signs Temperature 97.1 F L 05/10/18 09:13 Pulse Rate 62 05/10/18 09:13 Respiratory Rate 18 05/10/18 09:13 Blood Pressure 116/88 05/10/18 09:13 O2 Sat by Pulse Oximetry (%) Laboratory Last Values WBC 8.6 K/mm3 (4.0-10.0) 05/08/18 05:45 RBC 4.41 M/mm3 (4.00-5.60) 05/08/18 05:45 Hgb 15.2 GM/dL (11.7-16.9) 05/08/18 05:45 Hct 45.4 % (35.4-49) 05/08/18 05:45 MCV 103.0 fl (80-96) H 05/08/18 05:45 MCH 34.5 pg (25.7-33.7) H 05/08/18 05:45 MCHC 33.5 g/dl (32.0-35.9) 05/08/18 05:45 RDW 12.7 % (11.9-15.9) 05/08/18 05:45 Plt Count 276 K/MM3 (134-434) 05/08/18 05:45 MPV 12.1 fl (7.5-11.1) H 05/08/18 05:45 Sodium 137 mmol/L (136-145) 05/08/18 05:45 Potassium 4.4 mmol/L (3.5-5.1) 05/08/18 05:45 Chloride 102 mmol/L (98-107) 05/08/18 05:45 Carbon Dioxide 23 mmol/L (21-32) 05/08/18 05:45 Anion Gap 12 MMOL/L (8-16) 05/08/18 05:45 BUN 11 mg/dL (7-18) 05/08/18 05:45 Creatinine 1.4 mg/dL (0.55-1.3) H 05/08/18 05:45 Creat Clearance w eGFR 51.18 (>60) 05/08/18 05:45 Random Glucose 106 mg/dL (74-106) 05/08/18 05:45 Calcium 9.8 mg/dL (8.5-10.1) 05/08/18 05:45 Total Bilirubin 0.6 mg/dL (0.2-1) 05/08/18 05:45 AST 21 U/L (15-37) 05/08/18 05:45 ALT 24 U/L (13-61) 05/08/18 05:45 Alkaline Phosphatase 82 U/L (45-117) 05/08/18 05:45 Total Protein 7.7 g/dl (6.4-8.2) 05/08/18 05:45 Albumin 3.9 g/dl (3.4-5.0) 05/08/18 05:45 RPR Titer Nonreactive (NONREACTIVE) 05/08/18 05:45 lab noted Assessment: 05/10/18 11:28 mild withdrawal sx Plan: continue detox
[2018-05-10] MEDS: hydrOXYzine PAMOATE 50 MG CAPSULE (FP) PO PRN (20:12)
[2018-05-10] MEDS: THIAMINE HCL 100 MG TABLET (FP) PO SCH (22:16)
[2018-05-10] MEDS: MELATONIN 5 MG TABLETS PO PRN (22:17)
[2018-05-11] MEDS: chlordiazePOXIDE HCL 10 MG CAPSULE PO SCH (05:12)
[2018-05-11] MEDS: TOLNAFTATE 1% POWDER 45 GM POW TP SCH (10:53)
[2018-05-11] MEDS: PRENATAL VITAMINS W/ FOLIC ACID TABLET (FP) PO SCH (10:53)
[2018-05-11 13:21] VITALS: BP 142/90; PULSE 98; TEMP 97.8
--- NOTE | 2018-05-11 15:53 | DS ---
[facility] Detox Discharge Summary Admission Date: 05/07/18 Discharge Date: 05/11/18 - History Present History: Alcohol Dependence, Cannabis Dependence Additional Comments: PATIENT SCHEDULED FOR DISCHARGE FROM DETOX UNIT TO DAY. PATIENT GOING TO [facility] ([facility]) FOR AFTERCARE. PRIOR TO DISCHARGE FROM DETOX UNIT, PATIENT NOTES DISCOMFORT IN BILATERAL FEET FOR AT LEAST 1 MONTH'S DURATION NOW. MALFORMATION OF TOES METATARSAL BONES ON BILATERAL FEET NOTED. DRY SKIN NOTED ON BILATERAL FEET. FUNGAL IRRITATION NOTED ON NAIL BEDS. SMALL ULCER NOTED ON SOLE OF RIGHT FOOT. NO ERYTHEMA, SWELLING, DISCHARGE, OR SIGN OF INFECTION NOTED AT SITE. PATIENT ADVISED TO FOLLOW-UP WITH ACID SPLICER AFTER DISCHARGE FROM REHAB UNIT. PATIENT VERBALIZED UNDERSTANDING OF RECOMMENDATION. PATIENT WAS DISCHARGED FROM DETOX UNIT TO BE TAKEN OVER TO REHAB UNIT IN STABLE MEDICAL CONDITION. Pertinent Past History: HTN, Hypercholesterolemia, Tinea Pedis, Nicotine Dependence. - Physical Exam Results Vital Signs: Vital Signs Temperature 97.8 F 05/11/18 13:21 Pulse Rate 98 H 05/11/18 13:21 Respiratory Rate 18 05/11/18 13:21 Blood Pressure 142/90 05/11/18 13:21 O2 Sat by Pulse Oximetry (%) Pertinent Admission Physical Exam Findings: WITHDRAWAL SYMPTOMS. Laboratory Tests 05/08/18 05/08/18 05/08/18 05:45 05:45 05:45 WBC 8.6 RBC 4.41 Hgb 15.2 Hct 45.4 MCV 103.0 H MCH 34.5 H MCHC 33.5 RDW 12.7 Plt Count 276 MPV 12.1 H Sodium 137 Potassium 4.4 Chloride 102 Carbon Dioxide 23 Anion Gap 12 BUN 11 Creatinine 1.4 H Creat Clearance w eGFR 51.18 Random Glucose 106 Calcium 9.8 Total Bilirubin 0.6 AST 21 ALT 24 Alkaline Phosphatase 82 Total Protein 7.7 Albumin 3.9 RPR Titer Nonreactive LABS NOTED. - Treatment Hospital Course: Detox Protocol Followed, Detoxed Safely, Responded well, Discharged Condition Good, Rehab Referral Accepted Patient has Accepted a Rehab Ref[facility] to: [facility] [place] - Medication Discharge Medications: Ambulatory Orders NK [No Known Home Medication] 05/07/18 - Diagnosis (1) Alcohol dependence with uncomplicated withdrawal Status: Acute (2) Nicotine dependence Status: Chronic Qualifiers: Nicotine product type: cigarettes Substance use status: uncomplicated Qualified Code(s): F17.210 - Nicotine dependence, cigarettes, uncomplicated (3) Tinea pedis Status: Acute Qualifiers: Laterality: bilateral Qualified Code(s): B35.3 - Tinea pedis (4) Cannabis abuse Status: Chronic (5) Hypercholesteremia Status: Chronic (6) Hypertension Status: Chronic Qualifiers: Hypertension type: essential hypertension Qualified Code(s): I10 - Essential (primary) hypertension - AMA Did Patient Leave Against Medical Advice: No
== END 2018-05-11 14:07 | disposition other institution (70) | DRG 775 ==
LOC: YASAS 10:14 → Y3N 12:20
PROVIDERS: ADMIT Neuromusculoskeletal Medicine & OMM; ATTEND Neuromusculoskeletal Medicine & OMM
PROC: HZ2ZZZZ Detoxification Services for Substance Abuse Treatment (ICD-10-PCS; principal; 2018-05-07)
DX: F10.230 Alcohol dependence with withdrawal, uncomplicated (principal); F12.20 Cannabis dependence, uncomplicated; F17.210 Nicotine dependence, cigarettes, uncomplicated; I10 Essential (primary) hypertension; E78.00 Pure hypercholesterolemia, unspecified; B35.3 Tinea pedis; M79.672 Pain in left foot; M79.671 Pain in right foot; L84 Corns and callosities; Z89.422 Acquired absence of other left toe(s)
CPT/HCPCS: 36415; 71046-TC-FY; 80053; 85027; 86593; 90688; 93005; 93010; G0008

== ENCOUNTER 2018-05-11 14:16 | Inpatient (IN) | payer OTHER ==
[2018-05-11 15:00] VITALS: BMI 27.2
[2018-05-11] MEDS ORDERED: PNEUMOC 13-VAL CONJ-DIP CRM/PF 0.5 ML DISP.SYRIN IM ONE (15:06)
[2018-05-11] MEDS ORDERED: guaiFENesin/D-METHORPHAN HB 10 ML UNIT-DOSE CUPS PO PRN (15:58)
[2018-05-11] MEDS ORDERED: MAGNESIUM CITRATE 300 ML BOTTLE PO PRN (15:58)
[2018-05-11] MEDS ORDERED: P-EPHED 60MG/TRIPROLIDI 2.5MG TABLET PO PRN (15:58)
[2018-05-11] MEDS ORDERED: MAG HYDROX/AL HYDROX/SIMETH 30 ML UNIT-DOSE CUP PO PRN (15:58)
[2018-05-11] MEDS ORDERED: MENTHOL/PHENOL 1 EACH UD MM PRN (15:58)
[2018-05-11] MEDS ORDERED: LOPERAMIDE HCL 2 MG CAPSULE PO PRN (15:58)
[2018-05-11] MEDS ORDERED: MAGNESIUM HYDROX 2400MG/30ML ORAL SUSPENSION 30 ML CUP PO PRN (15:58)
--- NOTE | 2018-05-11 16:05 | HP ---
[facility] Re[facility] Assess/Revision - Admission History Admitted to Rehab from: [facility] Date of Admission to Rehab: 05/11/2018 - Vital signs Vital Signs: Vital Signs Period Temp Pulse Resp BP Sys/Means Pulse Ox Last 24 Hr 83 16 144/91 - Findings Detox History & Physical reviewed: Yes Concur with findings: Yes Comments/Additional Findings: PATIENT'S MEDICAL / MEDICATION HISTORY REVIEWED PRIOR TO DISCHARGE FROM DETOX UNIT. JUST PRIOR TO DISCHARGE FROM DETOX UNIT, PATIENT NOTES DISCOMFORT IN BILATERAL FEET FOR AT LEAST 1 MONTH'S DURATION NOW. MALFORMATION OF TOES METATARSAL BONES ON BILATERAL FEET NOTED. DRY SKIN NOTED ON BILATERAL FEET. FUNGAL IRRITATION NOTED ON NAIL BEDS. SMALL ULCER NOTED ON SOLE OF RIGHT FOOT. NO ERYTHEMA, SWELLING, DISCHARGE, OR SIGN OF INFECTION NOTED AT SITE. PATIENT ADVISED TO FOLLOW-UP WITH PASTRYCOOK'S ASSISTANT AFTER DISCHARGE FROM REHAB UNIT. PATIENT VERBALIZED UNDERSTANDING OF RECOMMENDATION. PATIENT WAS DISCHARGED FROM DETOX UNIT TO BE TAKEN OVER TO REHAB UNIT IN STABLE MEDICAL CONDITION. Inpatient Rehab Admission - Initial Determination Are CD services needed?: Yes Free of communicable disease: Yes Not in need of hospitalization: Yes - Rehab Admission Criteria Previous failed treatment: Yes Comorbidities: Yes Patient is meeting Inpatient Rehab admission criteria:: Yes
[2018-05-11] MEDS: TOLNAFTATE 1% CREAM 15 GM TUBE TP SCH (18:13)
[2018-05-11] MEDS: THIAMINE HCL 100 MG TABLET (FP) PO SCH (21:41)
[2018-05-11] MEDS: BACITRACIN 0.9 GM PACKET TP SCH (21:41)
[2018-05-11] MEDS: MELATONIN 5 MG TABLETS PO PRN (21:42)
[2018-05-11] MEDS: ACETAMINOPHEN 325 MG TABLET (FP) PO PRN (21:42)
[2018-05-12] MEDS: BACITRACIN 0.9 GM PACKET TP SCH ×2 (09:49→21:50)
[2018-05-12] MEDS: PRENATAL VITAMINS W/ FOLIC ACID TABLET (FP) PO SCH (09:49)
[2018-05-12] MEDS: IBUPROFEN 400 MG TABLET (FP) PO PRN (09:51)
[2018-05-12] MEDS: AMMONIUM LACTATE 12% LOTION 225 GM BOTTLE TP SCH (09:52)
[2018-05-12] MEDS: POVIDONE-IODINE 10% SOLN 118 ML BOTTLE TP SCH (09:52)
[2018-05-12] MEDS: TOLNAFTATE 1% CREAM 15 GM TUBE TP SCH (09:53)
[2018-05-12] MEDS ORDERED: PNEUMOCOCCAL 23 VACCINE 0.5 ML VIAL IM ONE (12:00)
--- NOTE | 2018-05-12 14:10 | HP ---
Psychiatrist Admission - Data Date of interview: 05/12/17 Admission source: [facility] Identifying data: Patient is a 63 year old single male, without children, unemployed, domiciled, and is supported by [facility]. This is patient's first admission to rehab at [facility]. Patient admitted to for alcohol and cocaine dependence. Medical History: hypertension, hypercholesterolemia, Left little toe amputation in 2012 Psychiatric History: Patient denies h/o psychiatric hospitalization, outpatient care, and suicide attempt. Mr Mcmahon reports stable mood but is experiencing difficulty sleeping. Physical/Sexual Abuse/Trauma History: Denies. Vital Signs: Vital Signs - 24 hr 05/11/18 05/12/18 05/12/18 14:40 00:30 03:30 Temperature Pulse Rate 83 Respiratory 16 20 18 Rate Blood Pressure 144/91 05/12/18 06:46 Temperature 97.8 F Pulse Rate 72 Respiratory 18 Rate Blood Pressure 151/90 Allergies/Adverse Reactions: Allergies Allergy/AdvReac Type Severity Reaction Status Date / Time No Known Allergies Allergy Verified 05/07/18 10:46 Date of last physical exam: 05/07/18 Concur with the findings of this exam: Yes - Substance Abuse/Tx History Hx Alcohol Use: Yes (consumes 6-7 beers per day) Hx Substance Use: Yes (Cocaine- $100 daily) Substance Use Type: Cocaine Hx Substance Use Treatment: Yes ( Rehab at an facility in [place], [place]) Mental Status Exam - Mental Status Exam Alert and Oriented to: Time, Place, Person Cognitive Function: Good Patient Appearance: Well Groomed Mood: Hopeful, Euthymic Affect: Appropriate Patient Behavior: Appropriate, Cooperative Speech Pattern: Appropriate (Patient appears to have a speech impediment) Voice Loudness: Normal Thought Process: Intact, Goal Oriented Thought Disorder: Not Present (Patient appears to have a speech impediment) Hallucinations: Denies Suicidal Ideation: Denies Homicidal Ideation: Denies Insight/Judgement: Poor Sleep: Poorly Appetite: Fair Muscle strength/Tone: Normal Gait/Station: Normal Psychiatric Findings - Problem List (Harmony 1, 2,3) (1) Alcohol dependence Current Visit: Yes Status: Acute (2) Cannabis dependence Current Visit: Yes Status: Acute (3) Cocaine dependence Current Visit: Yes Status: Acute (4) Substance-induced sleep disorder Current Visit: Yes Status: Acute (5) Nicotine dependence Current Visit: No Status: Chronic Qualifiers: Nicotine product type: cigarettes Substance use status: uncomplicated Qualified Code(s): F17.210 - Nicotine dependence, cigarettes, uncomplicated - Initial Treatment Plan Initial Treatment Plan: Psychoeducation provided. Rehabilitation in progress. Will order Trazodone 50mg qhs. Patient reports favorable effects from accepting trazodone at other detox/rehab settings. Mr. mcmahon was made aware of the risk of priapism when accepting trazodone. Verbal consent given.
[2018-05-12] MEDS: MELATONIN 5 MG TABLETS PO PRN (21:50)
[2018-05-12] MEDS: THIAMINE HCL 100 MG TABLET (FP) PO SCH (21:50)
[2018-05-12] MEDS: traZODone HCL 50 MG TABLET (FP) PO SCH (22:00)
[2018-05-13] MEDS: BACITRACIN 0.9 GM PACKET TP SCH ×2 (09:57→21:47)
[2018-05-13] MEDS: PRENATAL VITAMINS W/ FOLIC ACID TABLET (FP) PO SCH (09:57)
[2018-05-13] MEDS: AMMONIUM LACTATE 12% LOTION 225 GM BOTTLE TP SCH (09:58)
[2018-05-13] MEDS: POVIDONE-IODINE 10% SOLN 118 ML BOTTLE TP SCH (09:58)
[2018-05-13] MEDS: TOLNAFTATE 1% CREAM 15 GM TUBE TP SCH (10:30)
[2018-05-13] MEDS: MELATONIN 5 MG TABLETS PO PRN (21:47)
[2018-05-13] MEDS: traZODone HCL 50 MG TABLET (FP) PO SCH (21:47)
[2018-05-13] MEDS: THIAMINE HCL 100 MG TABLET (FP) PO SCH (21:47)
--- NOTE | 2018-05-14 09:31 | PN ---
S Progress Note Note: PATIENT PRESENTS WITH NUMBNESS AND TINGLING TO LEFT SECOND TOE. PATIENT DENIES RECENT INJURY, HX OF DM AND PERIPHERAL NEUROPATHIES. Vital Signs Temperature 97.9 F 05/14/18 06:51 Pulse Rate 87 05/14/18 06:51 Respiratory Rate 05/14/18 06:51 Blood Pressure 155/91 05/14/18 06:51 O2 Sat by Pulse Oximetry (%) PE: ALERT AND ORIENTED X 3 SKIN WARM AND DRY EXT FULL ROM, B/L FEET WITH MULTIPLE CALLOUSES AND BUNIONS, NO OPEN AREAS, + PEDAL PULSES B/L AMB AD FABIOLA A/P: NUMBNESS/TINGLING OF TOES WILL START GABAPENTIN 100MG TID AND CONTINUE TO MONITOR CLINICALLY ENCOURAGED ORAL HYDRATION
[2018-05-14] MEDS: PRENATAL VITAMINS W/ FOLIC ACID TABLET (FP) PO SCH (10:13)
[2018-05-14] MEDS: BACITRACIN 0.9 GM PACKET TP SCH ×2 (10:13→21:39)
[2018-05-14] MEDS: AMMONIUM LACTATE 12% LOTION 225 GM BOTTLE TP SCH (10:15)
[2018-05-14] MEDS: TOLNAFTATE 1% CREAM 15 GM TUBE TP SCH (10:15)
[2018-05-14] MEDS: POVIDONE-IODINE 10% SOLN 118 ML BOTTLE TP SCH (10:15)
[2018-05-14] MEDS ORDERED: PT OWN MED DRAWER 7, Y5N ONE (10:16)
[2018-05-14] MEDS: GABAPENTIN 100 MG CAPSULE (FP) PO SCH ×2 (14:49→21:40)
[2018-05-14] MEDS: THIAMINE HCL 100 MG TABLET (FP) PO SCH (21:39)
[2018-05-14] MEDS: MELATONIN 5 MG TABLETS PO PRN (21:40)
[2018-05-14] MEDS: traZODone HCL 50 MG TABLET (FP) PO SCH (21:40)
[2018-05-15] MEDS: GABAPENTIN 100 MG CAPSULE (FP) PO SCH ×3 (06:19→22:09)
[2018-05-15] MEDS: BACITRACIN 0.9 GM PACKET TP SCH ×2 (10:15→22:09)
[2018-05-15] MEDS: PRENATAL VITAMINS W/ FOLIC ACID TABLET (FP) PO SCH (10:15)
[2018-05-15] MEDS: IBUPROFEN 400 MG TABLET (FP) PO PRN (10:15)
[2018-05-15] MEDS: POVIDONE-IODINE 10% SOLN 118 ML BOTTLE TP SCH (10:40)
[2018-05-15] MEDS: AMMONIUM LACTATE 12% LOTION 225 GM BOTTLE TP SCH (10:40)
[2018-05-15] MEDS: TOLNAFTATE 1% CREAM 15 GM TUBE TP SCH (10:40)
[2018-05-15 17:06] LABS: URINE APPEARANCE CLEAR; URINE BILIRUBIN NEGATIVE (<2.0 mg/dL); URINE COLOR STRAW; URINE GLUCOSE (UA) NEGATIVE (NEGATIVE); URINE KETONE NEGATIVE (NEGATIVE); URINE LEUK ESTERASE NEGATIVE (NEGATIVE); URINE NITRITE NEGATIVE (NEGATIVE); URINE PROTEIN NEGATIVE (NEGATIVE); URINE UROBILINOGEN NEGATIVE mg/dL (0.2-1.0)
[2018-05-15] MEDS: THIAMINE HCL 100 MG TABLET (FP) PO SCH (22:09)
[2018-05-15] MEDS: traZODone HCL 50 MG TABLET (FP) PO SCH (22:09)
[2018-05-15] MEDS: MELATONIN 5 MG TABLETS PO PRN (22:10)
[2018-05-16] MEDS: GABAPENTIN 100 MG CAPSULE (FP) PO SCH ×3 (06:10→21:46)
[2018-05-16] MEDS: IBUPROFEN 400 MG TABLET (FP) PO PRN ×2 (06:11→21:47)
[2018-05-16] MEDS ORDERED: PT OWN MED DRAWER 7, Y5N ONE (09:00)
[2018-05-16] MEDS: BACITRACIN 0.9 GM PACKET TP SCH ×2 (09:42→21:46)
[2018-05-16] MEDS: PRENATAL VITAMINS W/ FOLIC ACID TABLET (FP) PO SCH (09:42)
[2018-05-16] MEDS: AMMONIUM LACTATE 12% LOTION 225 GM BOTTLE TP SCH (09:42)
[2018-05-16] MEDS: ACETAMINOPHEN 325 MG TABLET (FP) PO PRN (09:43)
[2018-05-16] MEDS: TOLNAFTATE 1% CREAM 15 GM TUBE TP SCH (09:44)
[2018-05-16] MEDS: POVIDONE-IODINE 10% SOLN 118 ML BOTTLE TP SCH (11:30)
[2018-05-16] MEDS: THIAMINE HCL 100 MG TABLET (FP) PO SCH (21:46)
[2018-05-16] MEDS: traZODone HCL 50 MG TABLET (FP) PO SCH (21:46)
[2018-05-16] MEDS: MELATONIN 5 MG TABLETS PO PRN (21:47)
[2018-05-17] MEDS: GABAPENTIN 100 MG CAPSULE (FP) PO SCH ×3 (06:14→21:47)
[2018-05-17] MEDS: IBUPROFEN 400 MG TABLET (FP) PO PRN (06:16)
--- NOTE | 2018-05-17 09:43 | PN ---
[facility] Progress Note Note: PATIENT SEEN FOR C/O LEFT GREAT TOE AND 5TH TOE DISCOMFORT. PATIENT DENIES RECENT INJURIES AND STATES PAIN RADIATES TO LEFT KNEE. PAIN DESCRIBED "PINS AND NEEDLES". PATIENT HAS MINIMAL RELIEF WITH GABAPENTIN. Laboratory Tests 05/13/18 05/15/18 09:56 14:30 Urine Color Cancelled Straw Urine Appearance Cancelled Clear Urine pH Cancelled 6.0 Ur Specific [place] Cancelled 1.010 Urine Protein Cancelled Negative Urine Glucose (UA) Cancelled Negative Urine Ketones Cancelled Negative Urine Blood Cancelled Negative Urine Nitrite Cancelled Negative Urine Bilirubin Cancelled Negative Urine Urobilinogen Cancelled Negative Ur Leukocyte Esterase Cancelled Negative PE: ALERT AND ORIENTED X 3 SKIN WARM AND DRY EXT FULL ROM, LEFT FOOT WITH MILD REDNESS TO GREAT TOE, TRACE PEDAL EDEMA. + PLANTAR CALLOUS. AMB AD FABIOLA A/P: LEFT FOOT PAIN LEFT GREAT TOE REDNESS CONTINUE WITH GABAPENTIN/IBUPROFEN PRN URIC ACID LEVEL ORDERED BETADINE SOAKS PER ORDER CONTINUE TO MONITOR CLINICALLY
[2018-05-17] MEDS: BACITRACIN 0.9 GM PACKET TP SCH ×2 (10:10→21:47)
[2018-05-17] MEDS: PRENATAL VITAMINS W/ FOLIC ACID TABLET (FP) PO SCH (10:10)
[2018-05-17] MEDS: TOLNAFTATE 1% CREAM 15 GM TUBE TP SCH (10:11)
[2018-05-17] MEDS: AMMONIUM LACTATE 12% LOTION 225 GM BOTTLE TP SCH (10:11)
[2018-05-17] MEDS: THIAMINE HCL 100 MG TABLET (FP) PO SCH (21:47)
[2018-05-17] MEDS: MELATONIN 5 MG TABLETS PO PRN (21:47)
[2018-05-17] MEDS: traZODone HCL 50 MG TABLET (FP) PO SCH (21:47)
[2018-05-18] MEDS: GABAPENTIN 100 MG CAPSULE (FP) PO SCH ×3 (06:45→21:42)
[2018-05-18] MEDS: IBUPROFEN 400 MG TABLET (FP) PO PRN (06:46)
[2018-05-18] MEDS: BACITRACIN 0.9 GM PACKET TP SCH ×2 (10:00→21:42)
[2018-05-18] MEDS: PRENATAL VITAMINS W/ FOLIC ACID TABLET (FP) PO SCH (10:00)
[2018-05-18] MEDS: AMMONIUM LACTATE 12% LOTION 225 GM BOTTLE TP SCH (10:00)
[2018-05-18] MEDS: TOLNAFTATE 1% CREAM 15 GM TUBE TP SCH (10:00)
[2018-05-18] MEDS: MELATONIN 5 MG TABLETS PO PRN (21:42)
[2018-05-18] MEDS: THIAMINE HCL 100 MG TABLET (FP) PO SCH (21:42)
[2018-05-18] MEDS: traZODone HCL 50 MG TABLET (FP) PO SCH (21:42)
[2018-05-19] MEDS: IBUPROFEN 400 MG TABLET (FP) PO PRN ×2 (02:49→21:42)
[2018-05-19] MEDS: GABAPENTIN 100 MG CAPSULE (FP) PO SCH ×3 (06:05→21:40)
[2018-05-19] MEDS ORDERED: PT OWN MED DRAWER 7, Y5N ONE (08:48)
[2018-05-19] MEDS: BACITRACIN 0.9 GM PACKET TP SCH ×2 (10:27→21:40)
[2018-05-19] MEDS: PRENATAL VITAMINS W/ FOLIC ACID TABLET (FP) PO SCH (10:27)
[2018-05-19] MEDS: AMMONIUM LACTATE 12% LOTION 225 GM BOTTLE TP SCH (10:27)
[2018-05-19] MEDS: TOLNAFTATE 1% CREAM 15 GM TUBE TP SCH (10:28)
[2018-05-19] MEDS: THIAMINE HCL 100 MG TABLET (FP) PO SCH (21:40)
[2018-05-19] MEDS: MELATONIN 5 MG TABLETS PO PRN (21:40)
[2018-05-19] MEDS: traZODone HCL 50 MG TABLET (FP) PO SCH (21:40)
[2018-05-20] MEDS: GABAPENTIN 100 MG CAPSULE (FP) PO SCH ×3 (06:30→21:26)
[2018-05-20] MEDS: IBUPROFEN 400 MG TABLET (FP) PO PRN ×2 (06:31→14:36)
[2018-05-20] MEDS: TOLNAFTATE 1% CREAM 15 GM TUBE TP SCH (09:59)
[2018-05-20] MEDS: BACITRACIN 0.9 GM PACKET TP SCH ×2 (09:59→21:26)
[2018-05-20] MEDS: PRENATAL VITAMINS W/ FOLIC ACID TABLET (FP) PO SCH (09:59)
[2018-05-20] MEDS: ACETAMINOPHEN 325 MG TABLET (FP) PO PRN (10:01)
[2018-05-20] MEDS: AMMONIUM LACTATE 12% LOTION 225 GM BOTTLE TP SCH (10:02)
[2018-05-20] MEDS: THIAMINE HCL 100 MG TABLET (FP) PO SCH (21:26)
[2018-05-20] MEDS: traZODone HCL 50 MG TABLET (FP) PO SCH (21:26)
[2018-05-20] MEDS: MELATONIN 5 MG TABLETS PO PRN (21:27)
[2018-05-21] MEDS: GABAPENTIN 100 MG CAPSULE (FP) PO SCH ×3 (06:12→21:58)
[2018-05-21] MEDS ORDERED: PT OWN MED DRAWER 7, Y5N ONE (09:19)
[2018-05-21] MEDS: PRENATAL VITAMINS W/ FOLIC ACID TABLET (FP) PO SCH (10:15)
[2018-05-21] MEDS: AMMONIUM LACTATE 12% LOTION 225 GM BOTTLE TP SCH (10:16)
[2018-05-21] MEDS: TOLNAFTATE 1% CREAM 15 GM TUBE TP SCH (10:16)
[2018-05-21] MEDS: BACITRACIN 0.9 GM PACKET TP SCH ×2 (10:17→21:58)
--- NOTE | 2018-05-21 10:56 | PN ---
[facility] Progress Note Note: URIC ACID LEVEL WNL AT 5.6. SYMPTOMS OF PERIPHERAL NEUROPATHY CONTINUES. WILL CONTINUE TO MONITOR.
[2018-05-21] MEDS: IBUPROFEN 400 MG TABLET (FP) PO PRN (16:33)
[2018-05-21] MEDS: THIAMINE HCL 100 MG TABLET (FP) PO SCH (21:58)
[2018-05-21] MEDS: MELATONIN 5 MG TABLETS PO PRN (21:58)
[2018-05-21] MEDS: traZODone HCL 50 MG TABLET (FP) PO SCH (21:58)
[2018-05-22] MEDS: IBUPROFEN 400 MG TABLET (FP) PO PRN ×3 (03:15→21:54)
[2018-05-22] MEDS: ACETAMINOPHEN 325 MG TABLET (FP) PO PRN (06:17)
[2018-05-22] MEDS: GABAPENTIN 100 MG CAPSULE (FP) PO SCH ×3 (06:18→21:52)
[2018-05-22] MEDS: BACITRACIN 0.9 GM PACKET TP SCH ×2 (10:20→22:18)
[2018-05-22] MEDS: PRENATAL VITAMINS W/ FOLIC ACID TABLET (FP) PO SCH (10:20)
[2018-05-22] MEDS: AMMONIUM LACTATE 12% LOTION 225 GM BOTTLE TP SCH (10:20)
[2018-05-22] MEDS: THIAMINE HCL 100 MG TABLET (FP) PO SCH (21:52)
[2018-05-22] MEDS: MELATONIN 5 MG TABLETS PO PRN (21:52)
[2018-05-22] MEDS: traZODone HCL 50 MG TABLET (FP) PO SCH (21:52)
[2018-05-23] MEDS: GABAPENTIN 100 MG CAPSULE (FP) PO SCH ×3 (05:45→21:42)
[2018-05-23] MEDS ORDERED: PT OWN MED DRAWER 7, Y5N ONE (09:27)
[2018-05-23] MEDS: PRENATAL VITAMINS W/ FOLIC ACID TABLET (FP) PO SCH (10:10)
[2018-05-23] MEDS: BACITRACIN 0.9 GM PACKET TP SCH ×2 (10:10→21:41)
[2018-05-23] MEDS: AMMONIUM LACTATE 12% LOTION 225 GM BOTTLE TP SCH (10:11)
[2018-05-23] MEDS: IBUPROFEN 400 MG TABLET (FP) PO PRN (10:12)
--- NOTE | 2018-05-23 11:51 | PN ---
[facility] Progress Note Note: PATIENT SEEN FOR C/O LEFT FOOT PAIN WHICH NOW RADIATES TO LEFT LOWER LEG/CALF AREA. PATIENT STATES PAIN WORSE AT NIGHT AND FEELS LIKE PINS AND NEEDLES. PATIENT DENIES ANY RECENT INJURIES TO FOOT/LEG. Vital Signs Temperature 97.7 F 05/23/18 06:44 Pulse Rate 84 05/23/18 06:44 Respiratory Rate 18 05/23/18 06:44 Blood Pressure 154/93 05/23/18 06:44 O2 Sat by Pulse Oximetry (%) Laboratory Tests 05/13/18 05/15/18 05/18/18 09:56 14:30 10:20 Uric Acid 5.6 Urine Color Cancelled Straw Urine Appearance Cancelled Clear Urine pH Cancelled 6.0 Ur Specific [place] Cancelled 1.010 Urine Protein Cancelled Negative Urine Glucose (UA) Cancelled Negative Urine Ketones Cancelled Negative Urine Blood Cancelled Negative Urine Nitrite Cancelled Negative Urine Bilirubin Cancelled Negative Urine Urobilinogen Cancelled Negative Ur Leukocyte Esterase Cancelled Negative PE: ALERT: AND ORIENTED X 3 SKIN: WARM AND DRY EXT: LEFT FOOT WITH TRACE EDEMA EXTENDING TO LEFT ANKLE AREA, PEDAL AND PT PULSE DIMINISHED, NEG HOMANS SIGN A/P: LEFT FOOT MILD SWELLING/PAIN PERIPHERAL NEUROPATHY WILL ORDER LEFT FOOT/ANKLE XRAY AND DUPLEX ARTERIAL STUDY OF LLE LEG ELEVATION WHILE IN CHAIR/BED CONTINUE TO MONITOR CLINICALLY
[2018-05-23] MEDS: traZODone HCL 50 MG TABLET (FP) PO SCH (21:41)
[2018-05-23] MEDS: THIAMINE HCL 100 MG TABLET (FP) PO SCH (21:41)
[2018-05-23] MEDS: MELATONIN 5 MG TABLETS PO PRN (21:42)
[2018-05-24] MEDS: IBUPROFEN 400 MG TABLET (FP) PO PRN ×2 (03:44→10:16)
[2018-05-24] MEDS: GABAPENTIN 100 MG CAPSULE (FP) PO SCH ×3 (06:29→21:36)
[2018-05-24] MEDS: PRENATAL VITAMINS W/ FOLIC ACID TABLET (FP) PO SCH (10:15)
[2018-05-24] MEDS: BACITRACIN 0.9 GM PACKET TP SCH ×2 (10:17→21:36)
[2018-05-24] MEDS: AMMONIUM LACTATE 12% LOTION 225 GM BOTTLE TP SCH (10:17)
--- NOTE | 2018-05-24 13:09 | PN ---
S Progress Note Note: PATIENT SCHEDULED FOR DISCHARGE 05/25/18. PATIENT IS MEDICALLY STABLE FOR D/C AT THIS TIME. PATIENT REMAINS ALERT AND ORIENTED X 3 AND DENIES SI/HI. PATIENT HAD LLE DOPPLER AND LEFT FOOT/ANKLE XRAY PRIOR D/C DUE TO C/O PAIN OF LEFT FOOT/ LEG. XRAY NEGATIVE FOR FRACTURE AND ABNORMALITY AND DOPPLER NEGATIVE FOR DVT. PATIENT TO FOLLOW UP WITH [facility] TO CONTINUE SUBSTANCE ABUSE TREATMENT. PATIENT ENCOURAGED TO CONTINUE WITH GROUP MEETINGS TO PREVENT RELAPSE AND TO FOLLOW UP WITH PCP FOR ONGOING MEDICAL TREATMENT. Vital Signs Temperature 97.7 F 05/24/18 07:03 Pulse Rate 73 05/24/18 07:03 Respiratory Rate 18 05/24/18 07:03 Blood Pressure 152/98 05/24/18 07:03 O2 Sat by Pulse Oximetry (%)
[2018-05-24] MEDS: traZODone HCL 50 MG TABLET (FP) PO SCH (21:36)
[2018-05-24] MEDS: THIAMINE HCL 100 MG TABLET (FP) PO SCH (21:36)
[2018-05-24] MEDS: ACETAMINOPHEN 325 MG TABLET (FP) PO PRN (21:37)
[2018-05-25] MEDS: GABAPENTIN 100 MG CAPSULE (FP) PO SCH (06:29)
[2018-05-25 06:51] VITALS: BP 137/86; PULSE 99; TEMP 98.3
[2018-05-25] MEDS: PRENATAL VITAMINS W/ FOLIC ACID TABLET (FP) PO SCH (09:59)
[2018-05-25] MEDS: BACITRACIN 0.9 GM PACKET TP SCH (10:00)
[2018-05-25] MEDS: AMMONIUM LACTATE 12% LOTION 225 GM BOTTLE TP SCH (10:00)
[2018-05-25] MEDS: IBUPROFEN 400 MG TABLET (FP) PO PRN (10:01)
== END 2018-05-25 10:00 | disposition home or self-care (01) | DRG 772 ==
LOC: YASAS 14:16 → Y3W 14:17
PROVIDERS: ADMIT Psychiatry & Neurology Psychiatry; ATTEND Psychiatry & Neurology Psychiatry
PROC: HZ42ZZZ Group Counseling for Substance Abuse Treatment, Cognitive-Behavioral (ICD-10-PCS; principal; 2018-05-11)
DX: F10.20 Alcohol dependence, uncomplicated (principal); F14.20 Cocaine dependence, uncomplicated; F12.20 Cannabis dependence, uncomplicated; F17.210 Nicotine dependence, cigarettes, uncomplicated; F19.282 Other psychoactive substance dependence with psychoactive substance-induced sleep disorder; I10 Essential (primary) hypertension; E78.00 Pure hypercholesterolemia, unspecified; R20.0 Anesthesia of skin; R20.2 Paresthesia of skin; M79.672 Pain in left foot; M79.675 Pain in left toe(s); M79.89 Other specified soft tissue disorders; Z89.422 Acquired absence of other left toe(s)
CPT/HCPCS: 36415; 73610-TC-LT-FY; 73630-TC-LT; 81003; 84550; 90732; 93971-TC; G0009

== ENCOUNTER 2018-10-23 12:55 | Inpatient (IN) | payer OTHER ==
[2018-10-23 13:26] VITALS: BMI 25.8
--- NOTE | 2018-10-23 15:50 | HP ---
CIWA Score Nausea/Vomitin-No Nausea/No Vomiting Muscle Tremors: None Anxiety: 1-Mildly Anxious Agitation: 0-Normal Activity Paroxysmal Sweats: No Perspiration Orientation: 0-Oriented Tacttile Disturbances: 1-Very Mild Itch/Numbness Auditory Disturbances: 0-None Visual Disturbances: 0-None Headache: 0-None Present CIWA-Ar Total Score: 2 - Admission Criteria OASAS Guidelines: Admission for Medically Managed Detox: Requires at least one of the followin. CIWA greater than 12 2. Seizures within the past 24 hours 3. Delirium tremens within the past 24 hours 4. Hallucinations within the past 24 hours 5. Acute intervention needed for co occurring medical disorder 6. Acute intervention needed for co occurring psychiatric disorder 7. Severe withdrawal that cannot be handled at a lower level of care (continued vomiting, continued diarrhea, abnormal vital signs) requiring intravenous medication and/or fluids 8. Admission ROS [facility] Allergies/Adverse Reactions: Allergies Allergy/AdvReac Type Severity Reaction Status Date / Time No Known Allergies Allergy Verified 10/23/18 13:18 History of Present Illness: pt here requesting rehab from etoh use , reports 1 case of beer/day , latest use today 3 am , daily use since 1 week after completing rehab at this facility , denies symptoms if not drinking , denies seizures, blackouts x 2 in the past , occasional tremors " if I don't get a beer in a couple of days " . PMHX : htn , hld not on meds pshx : toe amputation 5th r foot 7 years ago psych : denies tobacco : 8 cigs/day Exam Limitations: No Limitations - Ebola screening Have you traveled outside of the country in the last 21 days: No Have you had contact with anyone from an Ebola affected area: No Do you have a fever: No - Review of Systems Constitutional: No Symptoms Reported EENT: reports: No Symptoms Reported Respiratory: reports: No Symptoms reported Cardiac: reports: No Symptoms Reported GI: reports: No Symptoms Reported : reports: No Symptoms Reported Musculoskeletal: reports: Other (toes and feet) Neuro: reports: No Symptoms reported Endocrine: reports: No Symptoms Reported Psychiatric: reports: Orientated x3 Patient History - Patient Medical History Hx Anemia: No Hx Asthma: No Hx Chronic Obstructive Pulmonary Disease (COPD): No Hx Cancer: No Hx Cardiac Disorders: No Hx Congestive Heart Failure: No Hx Hypertension: Yes Hx Hypercholesterolemia: Yes (Not on medication) Hx Pacemaker: No HX Cerebrovascular Accident: No Hx Seizures: No Hx Dementia: No Hx Diabetes: No Hx Gastrointestinal Disorders: No Hx Liver Disease: No Hx Genitourinary Disorders: No Hx Sexually Transmitted Disorders: No Hx Renal Disease (ESRD): No Hx Thyroid Disease: No Hx Human Immunodeficiency Virus (HIV): No (Negative September 2016) Hx Hepatitis C: No Hx Depression: No Hx Suicide Attempt: No Hx Bipolar Disorder: No Hx Schizophrenia: No - Patient Surgical History Past Surgical History: Yes Hx Neurologic Surgery: No Hx Cataract Extraction: No Hx Cardiac Surgery: No Hx Lung Surgery: No Hx Breast Surgery: No Hx Breast Biopsy: No Hx Abdominal Surgery: No Hx Appendectomy: No Hx Cholecystectomy: No Hx Genitourinary Surgery: No Hx Section: No Hx Orthopedic Surgery: No Other Surgical History: RIGHT LITTLE TOE AMPUTATION 2012 Anesthesia Reaction: No - Smoking Cessation Smoking history: Current every day smoker Have you smoked in the past 12 months: Yes Aproximately how many cigarettes per day: 6 Hx Chewing Tobacco Use: No Initiated information on smoking cessation: No - Substances abused Alcohol Substance route: Oral Frequency: Daily Amount used: 6 CANS OF BEER (25 OUNCES) Age of first use: 11 Date of last use: 10/23/18 Cocaine Substance route: Smoking Frequency: 1-2 times per week Amount used: $50 Age of first use: 32 Date of last use: 10/22/18 Family Disease History - Family Disease History Family Disease History: Other: Mother (cva- ) Admission Physical Exam S - Vital Signs Vital Signs: Vital Signs - 24 hr 10/23/18 13:19 Temperature 97.7 F Pulse Rate 85 Respiratory 20 Rate Blood Pressure 125/81 - Physical General Appearance: Yes: No Apparent Distress HEENTM: Yes: EOMI, Normocephalic, Normal Voice Respiratory: Yes: Lungs Clear, Normal Breath Sounds, No Respiratory Distress, No Accessory Muscle Use Neck: Yes: No masses,lesions,Nodules, Trachea in good position Cardiology: Yes: Regular Rhythm, Regular Rate, S1, S2 Abdominal: Yes: Non Tender, Soft Musculoskeletal: Yes: full range of Motion, Gait Steady Extremities: Yes: Normal Range of Motion, Non-Tender Neurological: Yes: Alert, Motor Strength 5/5 Integumentary: Yes: Warm - Diagnostic (1) Alcohol dependence Current Visit: Yes Status: Chronic Qualifiers: Substance use status: uncomplicated Qualified Code(s): F10.20 - Alcohol dependence, uncomplicated (2) Nicotine dependence Current Visit: Yes Status: Chronic Qualifiers: Nicotine product type: cigarettes Breathalyzer - Breathalyzer Breathalyzer: 0 Urine Drug Screen - Test Device Lot number: [id number] Expiration date: 06/21/20 - Control Is test valid?: Yes - Results Drug screen NEGATIVE: No Urine drug screen results: THC-Marijuana, PUNEET-Cocaine Inpatient Rehab Admission - Rehab Decision to Admit Inpatient rehab admission?: Yes - Initial Determination Are CD services needed?: Yes Free of communicable disease: Yes Not in need of hospitalization: Yes - Rehab Admission Criteria Previous failed treatment: Yes Poor recovery environment: No Comorbidities: No Lacks judgement: Yes Patient is meeting Inpatient Rehab admission criteria:: Yes
[2018-10-23] MEDS ORDERED: P-EPHED 60MG/TRIPROLIDI 2.5MG TABLET PO PRN (16:19)
[2018-10-23] MEDS ORDERED: hydrOXYzine PAMOATE 25 MG CAPSULE (FP) PO PRN (16:19)
[2018-10-23] MEDS ORDERED: guaiFENesin 200 MG/10 ML 10 ML UNIT-DOSE CUPS PO PRN (16:19)
[2018-10-23] MEDS ORDERED: MAGNESIUM CITRATE 300 ML BOTTLE PO PRN (16:19)
[2018-10-23] MEDS ORDERED: ACETAMINOPHEN 325 MG TABLET (FP) PO PRN (16:19)
[2018-10-23] MEDS ORDERED: MAG HYDROX/AL HYDROX/SIMETH 30 ML UNIT-DOSE CUP PO PRN (16:19)
[2018-10-23] MEDS ORDERED: MAGNESIUM HYDROX 2400MG/30ML ORAL SUSPENSION 30 ML CUP PO PRN (16:19)
[2018-10-23] MEDS ORDERED: MENTHOL/PHENOL 1 EACH UD MM PRN (16:19)
[2018-10-23] MEDS: THIAMINE HCL 100 MG TABLET (FP) PO SCH (21:12)
[2018-10-23] MEDS: IBUPROFEN 400 MG TABLET (FP) PO PRN (21:13)
[2018-10-23] MEDS: MELATONIN 5 MG TABLETS PO PRN (22:03)
[2018-10-24 08:37] LABS: URINE APPEARANCE CLEAR; URINE BILIRUBIN NEGATIVE (NEGATIVE); URINE COLOR YELLOW; URINE GLUCOSE (UA) NEGATIVE (NEGATIVE); URINE KETONE NEGATIVE (NEGATIVE); URINE LEUK ESTERASE NEGATIVE (NEGATIVE); URINE NITRITE NEGATIVE (NEGATIVE); URINE PROTEIN NEGATIVE (NEGATIVE); URINE UROBILINOGEN 0.2 mg/dL (0.2-1.0)
[2018-10-24] MEDS: PRENATAL VITAMINS W/ FOLIC ACID TABLET (FP) PO SCH (09:55)
[2018-10-24 12:06] LABS: PH,URINE 5.5 (5.0-8.0); URINE APPEARANCE CLEAR; URINE BILIRUBIN NEGATIVE (NEGATIVE); URINE COLOR YELLOW; URINE GLUCOSE (UA) NEGATIVE (NEGATIVE); URINE KETONE NEGATIVE (NEGATIVE); URINE LEUK ESTERASE NEGATIVE (NEGATIVE); URINE NITRITE NEGATIVE (NEGATIVE); URINE PROTEIN NEGATIVE (NEGATIVE); URINE UROBILINOGEN 0.2 mg/dL (0.2-1.0)
[2018-10-24 12:06] LABS: HEMATOCRIT 40.2 % (35.4-49); HEMOGLOBIN 13.5 GM/dL (11.7-16.9); MCH 33.8 pg (25.7-33.7); MCHC 33.7 g/dl (32.0-35.9); MEAN CELL VOLUME 100.4 fl (80-96); MEAN PLT VOLUME 10.6 fl (7.5-11.1); PLATELET COUNT 265 K/MM3 (134-434); RDW 12.9 % (11.9-15.9); WHITE BLOOD COUNT 7.6 K/mm3 (4.0-10.0)
[2018-10-24 12:19] LABS: ALBUMIN 3.6 g/dl (3.4-5.0); BILIRUBIN,TOTAL 0.5 mg/dL (0.2-1); CALCIUM 9.4 mg/dL (8.5-10.1); CREATININE 1.3 mg/dL (0.55-1.3); POTASSIUM 4.2 mmol/L (3.5-5.1); TOT PROT 7.1 g/dl (6.4-8.2)
[2018-10-24] MEDS: THIAMINE HCL 100 MG TABLET (FP) PO SCH (21:05)
[2018-10-24] MEDS: MELATONIN 5 MG TABLETS PO PRN (21:06)
[2018-10-25] MEDS: IBUPROFEN 400 MG TABLET (FP) PO PRN (09:51)
[2018-10-25] MEDS: PRENATAL VITAMINS W/ FOLIC ACID TABLET (FP) PO SCH (09:51)
--- NOTE | 2018-10-25 11:08 | PN ---
S Progress Note (SOAP) Subjective: PT C/O LEFT TOE PAIN, ESPECIALLY MIDDLE TOE X 2 DAYS. DENIES TRUAMA TO FEET BUT STATES IT HAS HAPPENED IN THE PAST AND NOW COMING BACK. REPORTS CALLUS WHICH HE SHAVED OFF DIRECTLY BELOW THE TOE(S). Objective: 10/25/18 11:06 Vital Signs - 24 hr 10/25/18 10/25/18 10/25/18 00:30 03:30 06:45 Temperature 97.7 F Pulse Rate 77 Respiratory 18 18 18 Rate Blood Pressure 143/82 Laboratory Tests 10/23/18 10/23/18 10/23/18 08:20 08:20 08:20 WBC 7.6 RBC 4.00 Hgb 13.5 Hct 40.2 MCV 100.4 H MCH 33.8 H MCHC 33.7 RDW 12.9 Plt Count 265 MPV 10.6 D Sodium 140 Potassium 4.2 Chloride 105 Carbon Dioxide 28 Anion Gap 7 L BUN 11.0 Creatinine 1.3 Est GFR (CKD-EPI)AfAm 67.30 Est GFR (CKD-EPI)NonAf 58.07 Random Glucose 78 Calcium 9.4 Total Bilirubin 0.5 AST 13 L ALT 20 Alkaline Phosphatase 94 Total Protein 7.1 Albumin 3.6 Urine Color Urine Appearance Urine pH Ur Specific [place] Urine Protein Urine Glucose (UA) Urine Ketones Urine Blood Urine Nitrite Urine Bilirubin Urine Urobilinogen Ur Leukocyte Esterase RPR Titer Nonreactive 10/24/18 10/24/18 00:08 11:00 WBC RBC Hgb Hct MCV MCH MCHC RDW Plt Count MPV Sodium Potassium Chloride Carbon Dioxide Anion Gap BUN Creatinine Est GFR (CKD-EPI)AfAm Est GFR (CKD-EPI)NonAf Random Glucose Calcium Total Bilirubin AST ALT Alkaline Phosphatase Total Protein Albumin Urine Color Yellow Yellow Urine Appearance Clear Clear Urine pH 5.0 5.5 Ur Specific [place] 1.015 1.014 Urine Protein Negative Negative Urine Glucose (UA) Negative Negative Urine Ketones Negative Negative Urine Blood Negative Negative Urine Nitrite Negative Negative Urine Bilirubin Negative Negative Urine Urobilinogen 0.2 0.2 Ur Leukocyte Esterase Negative Negative RPR Titer Assessment: 10/25/18 11:06 ONYCHOMYCOSIS BUNIOIN RIGHT GREAT TOE Plan: D/W PT TO SOAK FEET IN BASIN OF WARM WATER WITH EPSOLM SALT DAILY. TINACTIN CREAM TO AFFECTED AREAS.
[2018-10-25] MEDS: TOLNAFTATE 1% CREAM 15 GM TUBE TP SCH ×2 (12:36→21:08)
[2018-10-25] MEDS: MELATONIN 5 MG TABLETS PO PRN (21:08)
[2018-10-25] MEDS: THIAMINE HCL 100 MG TABLET (FP) PO SCH (21:08)
[2018-10-26] MEDS: PRENATAL VITAMINS W/ FOLIC ACID TABLET (FP) PO SCH (09:45)
[2018-10-26] MEDS: TOLNAFTATE 1% CREAM 15 GM TUBE TP SCH ×2 (09:45→21:10)
[2018-10-26] MEDS: MAGNESIUM SULFATE 16 OZ CRYSTALS TP SCH (09:45)
[2018-10-26] MEDS: IBUPROFEN 400 MG TABLET (FP) PO PRN (21:08)
[2018-10-26] MEDS: MELATONIN 5 MG TABLETS PO PRN (21:08)
[2018-10-26] MEDS: THIAMINE HCL 100 MG TABLET (FP) PO SCH (21:08)
[2018-10-27] MEDS: PRENATAL VITAMINS W/ FOLIC ACID TABLET (FP) PO SCH (09:30)
[2018-10-27] MEDS: MAGNESIUM SULFATE 16 OZ CRYSTALS TP SCH (09:31)
[2018-10-27] MEDS: TOLNAFTATE 1% CREAM 15 GM TUBE TP SCH ×2 (09:31→21:15)
[2018-10-27] MEDS: THIAMINE HCL 100 MG TABLET (FP) PO SCH (21:15)
[2018-10-27] MEDS: MELATONIN 5 MG TABLETS PO PRN (21:16)
[2018-10-28] MEDS: PRENATAL VITAMINS W/ FOLIC ACID TABLET (FP) PO SCH (09:46)
[2018-10-28] MEDS: TOLNAFTATE 1% CREAM 15 GM TUBE TP SCH ×2 (09:46→21:18)
[2018-10-28] MEDS: MAGNESIUM SULFATE 16 OZ CRYSTALS TP SCH (09:46)
[2018-10-28] MEDS: NICOTINE POLACRILEX 2 MG GUM BC PRN (13:17)
[2018-10-28] MEDS: THIAMINE HCL 100 MG TABLET (FP) PO SCH (21:18)
[2018-10-28] MEDS: IBUPROFEN 400 MG TABLET (FP) PO PRN (21:19)
[2018-10-28] MEDS: MELATONIN 5 MG TABLETS PO PRN (21:20)
[2018-10-29] MEDS: MAGNESIUM SULFATE 16 OZ CRYSTALS TP SCH (09:49)
[2018-10-29] MEDS: TOLNAFTATE 1% CREAM 15 GM TUBE TP SCH (09:50)
[2018-10-29] MEDS: PRENATAL VITAMINS W/ FOLIC ACID TABLET (FP) PO SCH (09:50)
--- NOTE | 2018-10-29 14:32 | PN ---
[facility] Progress Note (SOAP) Subjective: Per pt's pharmacy records, pt is currently on lipitor 20 mg po hs. Pt requesting to continue. also c/o left foot toes problems which he had been prescribed clotrimazole 1% topical solution for nail fungus. Objective: 10/29/18 14:29 Vital Signs - 24 hr 10/29/18 10/29/18 10/29/18 00:30 03:30 06:55 Temperature 97.7 F Pulse Rate 79 Respiratory 17 18 18 Rate Blood Pressure 149/89 Laboratory Tests 10/23/18 10/23/18 10/23/18 08:20 08:20 08:20 WBC 7.6 RBC 4.00 Hgb 13.5 Hct 40.2 MCV 100.4 H MCH 33.8 H MCHC 33.7 RDW 12.9 Plt Count 265 MPV 10.6 D Sodium 140 Potassium 4.2 Chloride 105 Carbon Dioxide 28 Anion Gap 7 L BUN 11.0 Creatinine 1.3 Est GFR (CKD-EPI)AfAm 67.30 Est GFR (CKD-EPI)NonAf 58.07 Random Glucose 78 Calcium 9.4 Total Bilirubin 0.5 AST 13 L ALT 20 Alkaline Phosphatase 94 Total Protein 7.1 Albumin 3.6 Urine Color Urine Appearance Urine pH Ur Specific [place] Urine Protein Urine Glucose (UA) Urine Ketones Urine Blood Urine Nitrite Urine Bilirubin Urine Urobilinogen Ur Leukocyte Esterase RPR Titer Nonreactive 10/24/18 10/24/18 00:08 11:00 WBC RBC Hgb Hct MCV MCH MCHC RDW Plt Count MPV Sodium Potassium Chloride Carbon Dioxide Anion Gap BUN Creatinine Est GFR (CKD-EPI)AfAm Est GFR (CKD-EPI)NonAf Random Glucose Calcium Total Bilirubin AST ALT Alkaline Phosphatase Total Protein Albumin Urine Color Yellow Yellow Urine Appearance Clear Clear Urine pH 5.0 5.5 Ur Specific [place] 1.015 1.014 Urine Protein Negative Negative Urine Glucose (UA) Negative Negative Urine Ketones Negative Negative Urine Blood Negative Negative Urine Nitrite Negative Negative Urine Bilirubin Negative Negative Urine Urobilinogen 0.2 0.2 Ur Leukocyte Esterase Negative Negative RPR Titer left foot: unchanged from previous days exam. No open skin. Skin around toes dry and scaly with sloughing. Nails are brown/thickened and dry. Assessment: 10/29/18 14:31 Onycchomycosis Tinea pedis Hypercholesterolemia Plan: clotrimazole 1 % topical solution apply daily. lipitor 20 mg po hs
[2018-10-29] MEDS: BACLOFEN 10 MG TABLET (FP) PO SCH ×2 (14:34→21:15)
[2018-10-29] MEDS ORDERED: hydrOXYzine HCL 25 MG TABLET (FP) PO PRN (15:11)
[2018-10-29] MEDS: CLOTRIMAZOLE 1% 10 ML TOPICAL SOLUTION TP SCH (16:08)
[2018-10-29] MEDS: ATORVASTATIN CA 20 MG TABLET (FP) PO SCH (21:15)
[2018-10-29] MEDS: THIAMINE HCL 100 MG TABLET (FP) PO SCH (21:15)
[2018-10-29] MEDS: MELATONIN 5 MG TABLETS PO PRN (21:16)
[2018-10-30] MEDS: BACLOFEN 10 MG TABLET (FP) PO SCH ×3 (06:27→21:15)
[2018-10-30] MEDS: CLOTRIMAZOLE 1% 10 ML TOPICAL SOLUTION TP SCH (10:11)
[2018-10-30] MEDS: MAGNESIUM SULFATE 16 OZ CRYSTALS TP SCH (10:11)
[2018-10-30] MEDS: PRENATAL VITAMINS W/ FOLIC ACID TABLET (FP) PO SCH (10:11)
[2018-10-30] MEDS: NICOTINE POLACRILEX 2 MG GUM BC PRN ×2 (14:21→17:42)
[2018-10-30] MEDS: ATORVASTATIN CA 20 MG TABLET (FP) PO SCH (21:15)
[2018-10-30] MEDS: THIAMINE HCL 100 MG TABLET (FP) PO SCH (21:15)
[2018-10-30] MEDS: MELATONIN 5 MG TABLETS PO PRN (21:16)
[2018-10-31] MEDS: BACLOFEN 10 MG TABLET (FP) PO SCH ×3 (06:03→21:21)
[2018-10-31] MEDS: PRENATAL VITAMINS W/ FOLIC ACID TABLET (FP) PO SCH (10:02)
[2018-10-31] MEDS: CLOTRIMAZOLE 1% 10 ML TOPICAL SOLUTION TP SCH (10:02)
[2018-10-31] MEDS: MAGNESIUM SULFATE 16 OZ CRYSTALS TP SCH (10:03)
[2018-10-31] MEDS: MELATONIN 5 MG TABLETS PO PRN (21:21)
[2018-10-31] MEDS: THIAMINE HCL 100 MG TABLET (FP) PO SCH (21:21)
[2018-10-31] MEDS: ATORVASTATIN CA 20 MG TABLET (FP) PO SCH (21:21)
[2018-11-01] MEDS: BACLOFEN 10 MG TABLET (FP) PO SCH ×3 (06:34→21:28)
[2018-11-01] MEDS: IBUPROFEN 600 MG TABLET (FP) PO PRN (06:35)
[2018-11-01] MEDS: PRENATAL VITAMINS W/ FOLIC ACID TABLET (FP) PO SCH (10:03)
[2018-11-01] MEDS: CLOTRIMAZOLE 1% 10 ML TOPICAL SOLUTION TP SCH (10:04)
[2018-11-01] MEDS: MAGNESIUM SULFATE 16 OZ CRYSTALS TP SCH (10:05)
[2018-11-01] MEDS: NICOTINE POLACRILEX 2 MG GUM BC PRN (15:20)
[2018-11-01] MEDS: THIAMINE HCL 100 MG TABLET (FP) PO SCH (21:28)
[2018-11-01] MEDS: MELATONIN 5 MG TABLETS PO PRN (21:28)
[2018-11-01] MEDS: ATORVASTATIN CA 20 MG TABLET (FP) PO SCH (21:28)
[2018-11-02] MEDS: BACLOFEN 10 MG TABLET (FP) PO SCH ×3 (07:45→21:43)
[2018-11-02] MEDS: MAGNESIUM SULFATE 16 OZ CRYSTALS TP SCH (09:55)
[2018-11-02] MEDS: PRENATAL VITAMINS W/ FOLIC ACID TABLET (FP) PO SCH (09:55)
[2018-11-02] MEDS: CLOTRIMAZOLE 1% 10 ML TOPICAL SOLUTION TP SCH (09:56)
[2018-11-02] MEDS: THIAMINE HCL 100 MG TABLET (FP) PO SCH (21:43)
[2018-11-02] MEDS: MELATONIN 5 MG TABLETS PO PRN (21:43)
[2018-11-02] MEDS: ATORVASTATIN CA 20 MG TABLET (FP) PO SCH (21:43)
[2018-11-03] MEDS: BACLOFEN 10 MG TABLET (FP) PO SCH ×3 (06:26→21:23)
[2018-11-03] MEDS: CLOTRIMAZOLE 1% 10 ML TOPICAL SOLUTION TP SCH (10:01)
[2018-11-03] MEDS: PRENATAL VITAMINS W/ FOLIC ACID TABLET (FP) PO SCH (10:01)
[2018-11-03] MEDS: MAGNESIUM SULFATE 16 OZ CRYSTALS TP SCH (10:01)
[2018-11-03] MEDS: ATORVASTATIN CA 20 MG TABLET (FP) PO SCH (21:22)
[2018-11-03] MEDS: MELATONIN 5 MG TABLETS PO PRN (21:23)
[2018-11-03] MEDS: THIAMINE HCL 100 MG TABLET (FP) PO SCH (23:19)
[2018-11-04] MEDS: BACLOFEN 10 MG TABLET (FP) PO SCH ×3 (05:55→21:21)
[2018-11-04] MEDS: MAGNESIUM SULFATE 16 OZ CRYSTALS TP SCH (10:06)
[2018-11-04] MEDS: PRENATAL VITAMINS W/ FOLIC ACID TABLET (FP) PO SCH (10:06)
[2018-11-04] MEDS: CLOTRIMAZOLE 1% 10 ML TOPICAL SOLUTION TP SCH (10:07)
[2018-11-04] MEDS: IBUPROFEN 600 MG TABLET (FP) PO PRN (21:21)
[2018-11-04] MEDS: MELATONIN 5 MG TABLETS PO PRN (21:21)
[2018-11-04] MEDS: ATORVASTATIN CA 20 MG TABLET (FP) PO SCH (21:21)
[2018-11-04] MEDS: THIAMINE HCL 100 MG TABLET (FP) PO SCH (21:22)
[2018-11-05] MEDS: BACLOFEN 10 MG TABLET (FP) PO SCH ×3 (06:22→21:17)
[2018-11-05] MEDS: MAGNESIUM SULFATE 16 OZ CRYSTALS TP SCH (09:48)
[2018-11-05] MEDS: CLOTRIMAZOLE 1% 10 ML TOPICAL SOLUTION TP SCH (09:50)
[2018-11-05] MEDS: PRENATAL VITAMINS W/ FOLIC ACID TABLET (FP) PO SCH (09:51)
[2018-11-05] MEDS: amLODIPine BESYLATE 10 MG TABLET (FP) PO SCH (14:55)
[2018-11-05] MEDS: ATORVASTATIN CA 20 MG TABLET (FP) PO SCH (21:17)
[2018-11-05] MEDS: THIAMINE HCL 100 MG TABLET (FP) PO SCH (21:17)
[2018-11-05] MEDS: IBUPROFEN 600 MG TABLET (FP) PO PRN (21:18)
[2018-11-06] MEDS: BACLOFEN 10 MG TABLET (FP) PO SCH (06:39)
[2018-11-06 06:43] VITALS: BP 153/92; PULSE 75; TEMP 97.4
[2018-11-06] MEDS: amLODIPine BESYLATE 10 MG TABLET (FP) PO SCH (09:14)
[2018-11-06] MEDS: PRENATAL VITAMINS W/ FOLIC ACID TABLET (FP) PO SCH (09:14)
[2018-11-06] MEDS: CLOTRIMAZOLE 1% 10 ML TOPICAL SOLUTION TP SCH (09:14)
[2018-11-06] MEDS: MAGNESIUM SULFATE 16 OZ CRYSTALS TP SCH (09:14)
--- NOTE | 2018-11-06 10:40 | PN ---
[facility] Progress Note (SOAP) Subjective: PT COMPLETED REHAB AND DISCHARGED TODAY. DURING COURSE OF TREATMENT, PT ATTENDED AND PARTICIPATED IN REHAB GROUPS/ACTIVITIES. PT MET WITH HIS COUNSELOR AND HAS BEEN REFERRED TO [facility] FOR CD AFTERCARE. PT REPORTS HE HAS PRIMARY CARE WITH DR. PICHARDO AT [address] [facility], [place], [place] AND PT HAS BEEN INSTRUCTED TO FOLLOW UP FOR MEDICAL MANAGEMENT. COURTESY RX ELECTRONICALLY SENT TO [facility] FOR PATIENT TO [employer] ON DISCHARGE. AMBULATES WITH CANE WITH STEADY GAIT. ALERT O X 3. DENIES S/H/I. Objective: 11/06/18 10:42 Vital Signs - 24 hr 11/06/18 11/06/18 11/06/18 00:30 03:30 06:43 Temperature 97.4 F L Pulse Rate 75 Respiratory 18 18 18 Rate Blood Pressure 153/92 Laboratory Tests 10/23/18 10/23/18 10/23/18 08:20 08:20 08:20 WBC 7.6 RBC 4.00 Hgb 13.5 Hct 40.2 MCV 100.4 H MCH 33.8 H MCHC 33.7 RDW 12.9 Plt Count 265 MPV 10.6 D Sodium 140 Potassium 4.2 Chloride 105 Carbon Dioxide 28 Anion Gap 7 L BUN 11.0 Creatinine 1.3 Est GFR (CKD-EPI)AfAm 67.30 Est GFR (CKD-EPI)NonAf 58.07 Random Glucose 78 Calcium 9.4 Total Bilirubin 0.5 AST 13 L ALT 20 Alkaline Phosphatase 94 Total Protein 7.1 Albumin 3.6 Urine Color Urine Appearance Urine pH Ur Specific [place] Urine Protein Urine Glucose (UA) Urine Ketones Urine Blood Urine Nitrite Urine Bilirubin Urine Urobilinogen Ur Leukocyte Esterase RPR Titer Nonreactive 10/24/18 10/24/18 00:08 11:00 WBC RBC Hgb Hct MCV MCH MCHC RDW Plt Count MPV Sodium Potassium Chloride Carbon Dioxide Anion Gap BUN Creatinine Est GFR (CKD-EPI)AfAm Est GFR (CKD-EPI)NonAf Random Glucose Calcium Total Bilirubin AST ALT Alkaline Phosphatase Total Protein Albumin Urine Color Yellow Yellow Urine Appearance Clear Clear Urine pH 5.0 5.5 Ur Specific [place] 1.015 1.014 Urine Protein Negative Negative Urine Glucose (UA) Negative Negative Urine Ketones Negative Negative Urine Blood Negative Negative Urine Nitrite Negative Negative Urine Bilirubin Negative Negative Urine Urobilinogen 0.2 0.2 Ur Leukocyte Esterase Negative Negative RPR Titer Home Medications Medication Instructions Recorded Clotrimazole 1 applic TP DAILY 10/29/18 Amlodipine Besylate [Norvasc -] 10 mg PO DAILY #30 tablet 11/05/18 Atorvastatin Ca [Lipitor] 20 mg PO HS #14 tablet 11/05/18 Assessment: 11/06/18 10:43 NAD MEDICALLY STABLE [facility] Inpatient Services Medical - Diagnosis (1) Alcohol dependence Qualifiers: Substance use status: uncomplicated Qualified Code(s): F10.20 - Alcohol dependence, uncomplicated Current Visit: Yes Status: Chronic (2) Nicotine dependence Qualifiers: Nicotine product type: cigarettes Current Visit: Yes Status: Chronic (3) Cocaine dependence Qualifiers: Substance use status: uncomplicated Qualified Code(s): F14.20 - Cocaine dependence, uncomplicated Current Visit: Yes Status: Chronic (4) Peripheral neuropathy Qualifiers: Peripheral neuropathy type: polyneuropathy, unspecified Qualified Code(s): G62.9 - Polyneuropathy, unspecified Current Visit: Yes Status: Chronic (5) Hypercholesteremia Current Visit: Yes Status: Chronic (6) Hypertension Qualifiers: Hypertension type: essential hypertension Qualified Code(s): I10 - Essential (primary) hypertension Current Visit: Yes Status: Chronic (7) Callus of foot Current Visit: Yes Status: Chronic (8) Onychomycosis Current Visit: Yes Status: Chronic (9) Tinea pedis Qualifiers: Laterality: bilateral Qualified Code(s): B35.3 - Tinea pedis Current Visit: Yes Status: Chronic (10) Ambulates with cane Current Visit: Yes Status: Chronic Plan: D/C TODAY FOLLOW UP WITH CD AFTERCARE RECOMMENDATIONS. FOLLOW UP WITH PRIMARY CARE WITHIN 1-2 WEEKS AFTER DISCHARGE.
== END 2018-11-06 09:45 | disposition home or self-care (01) | DRG 772 ==
LOC: YASAS 12:55 → Y5N 16:36
PROVIDERS: ADMIT Neuromusculoskeletal Medicine & OMM; ATTEND Neuromusculoskeletal Medicine & OMM
PROC: HZ42ZZZ Group Counseling for Substance Abuse Treatment, Cognitive-Behavioral (ICD-10-PCS; principal; 2018-10-23)
DX: F10.20 Alcohol dependence, uncomplicated (principal); F14.20 Cocaine dependence, uncomplicated; F17.210 Nicotine dependence, cigarettes, uncomplicated; I10 Essential (primary) hypertension; G62.9 Polyneuropathy, unspecified; E78.00 Pure hypercholesterolemia, unspecified; L84 Corns and callosities; B35.1 Tinea unguium; B35.3 Tinea pedis; M21.612 Bunion of left foot; Z89.421 Acquired absence of other right toe(s); R26.2 Difficulty in walking, not elsewhere classified; Z99.89 Dependence on other enabling machines and devices
CPT/HCPCS: 36415; 80053; 81003; 85027; 86593; J0475

== ENCOUNTER 2020-01-23 16:52 | Inpatient (IN) | payer OTHER ==
--- NOTE | 2020-01-23 18:02 | BHS.RME ---
Substance Use & Tx History - Substance Use History Alcohol Substance amount: 12 beers 24 oz Frequency of use: Daily Substance route: Oral Date of Last Use: 01/23/20 (started age 11) Cocaine- Powder Substance amount: $150 Frequency of use: Daily Substance route: Smoking Date of Last Use: 01/23/20 (started age 35) Nicotine Substance amount: 6 cigg Frequency of use: Daily Substance route: Smoking Date of Last Use: 01/23/20 (started age 11) - Last Treatment Date of last treatment: 10/23-11/06/28 completed Treatment type: Substance Use Disorder ([facility]ENDA) Where was last treatment: Rehab Physical/Psych/Mental Status - Behavior General Behavior: Increased activity (restlessness, agitation) Eye Contact: Normal - Cooperativeness Cooperativeness: Cooperative - Thinking Thought Processes: Tight, Logical, Goal Directed - Physical Health Problems Is patient presently having any pain?: No Does patient presently have any injuries (include location): No Does patient currently have a fever: No Is patient : No CIWA Nausea/Vomitin-Mild Nausea/No Vomiting Muscle Tremors: 3 Anxiety: 2 Agitation: 3 Paroxysmal Sweats: 2 Orientation: 0-Oriented Tacttile Disturbances: 0-None Auditory Disturbances: 0-None Visual Disturbances: 0-None Headache: 1-Very Mild CIWA-Ar Total Score: 12
[2020-01-23 18:15] VITALS: BMI 22.6
--- NOTE | 2020-01-23 18:28 | HP ---
CIWA Score Nausea/Vomitin-Mild Nausea/No Vomiting Muscle Tremors: 3 Anxiety: 2 Agitation: 3 Paroxysmal Sweats: 2 Orientation: 0-Oriented Tacttile Disturbances: 0-None Auditory Disturbances: 0-None Visual Disturbances: 0-None Headache: 1-Very Mild CIWA-Ar Total Score: 12 - Admission Criteria OASAS Guidelines: Admission for Medically Managed Detox: Requires at least one of the followin. CIWA greater than 12 2. Seizures within the past 24 hours 3. Delirium tremens within the past 24 hours 4. Hallucinations within the past 24 hours 5. Acute intervention needed for co occurring medical disorder 6. Acute intervention needed for co occurring psychiatric disorder 7. Severe withdrawal that cannot be handled at a lower level of care (continued vomiting, continued diarrhea, abnormal vital signs) requiring intravenous medication and/or fluids 8. Admitting History and Physical - Admission Chief Complaint: Pt is a 64 yo M presenting for alcohol detox; "I'm here because I drink too much and smoke too much cocaine." History of Present Illness: Pt is a 64 yo M presenting for alcohol detox; "I'm here because I drink too much and smoke too much cocaine." Pt was last at [facility] on 10/23/2018-11/06/2018; completed detox and rehab but relapsed immediately after leaving. Reports he blacked out 1 month ago. Pt reports "boredom" and "loneliness" as his most frequent triggers for substance use. Pt has history of heroin use but denies current regular use; denies current methadone use through a program - but reports he took a methadone a few weeks back when his friend offered it him. He reports not wanting to take methadone again. Pt meets criteria d/t poorly controlled medical comorbidities and high frequency/risk of relapse. PMH - HTN, HLD (does not recall his medications; last time he took them was "a couple of months ago," after which he ran out) PSH - Amputation of R 5th toe (8 years ago); amputation of L 2nd toe 2/2 to infection (6-7 months ago) Psych - none Soc/Domiciled - lives alone in the [place] (apartment) Legal - none - Substance Use History Alcohol Substance amount: 12 beers 24 oz Frequency of use: Daily Substance route: Oral Date of Last Use: 01/23/20 (started age 11) Cocaine- Powder Substance amount: $150 Frequency of use: Daily Substance route: Smoking Date of Last Use: 01/23/20 (started age 35) Nicotine Substance amount: 6 cigg Frequency of use: Daily Substance route: Smoking Date of Last Use: 01/23/20 (started age 11) - Last Treatment Date of last treatment: 10/23-11/06/28 completed Treatment type: Substance Use Disorder (BRENDA) Where was last treatment: Rehab - Past Medical History Cardiovascular: Yes: HTN, Hyperlipdemia - Smoking History Smoking history: Current every day smoker Have you smoked in the past 12 months: Yes Aproximately how many cigarettes per day: 6 - Alcohol/Substance Use Hx Alcohol Use: Yes (consumes 6-7 beers per day) Admission [facility] Allergies/Adverse Reactions: Allergies Allergy/AdvReac Type Severity Reaction Status Date / Time No Known Allergies Allergy Verified 10/23/18 13:18 - Ebola screening Have you traveled outside of the country in the last 21 days: No Have you been sick,other than usual withdrawal symptoms: No Do you have a fever: No - Review of Systems Constitutional: Diaphoresis (mild perspiration), Changes in sleep (insomnia) EENT: reports: No Symptoms Reported Respiratory: reports: No Symptoms reported Cardiac: reports: No Symptoms Reported GI: reports: Nausea (mild), Abdominal cramping (intermittent) : reports: No Symptoms Reported Musculoskeletal: reports: No Symptoms Reported Integumentary: reports: No Symptoms Reported Neuro: reports: Headache (mild), Tremors (mild; felt not seen) Endocrine: reports: No Symptoms Reported Hematology: reports: No Symptoms Reported Psychiatric: reports: Orientated x3, Agitated (mildly restless), Anxious (mildly anxious), Depressed (mildly depressed) Patient History - Patient Medical History Hx Anemia: No Hx Asthma: No Hx Chronic Obstructive Pulmonary Disease (COPD): No Hx Cancer: No Hx Cardiac Disorders: No Hx Congestive Heart Failure: No Hx Hypertension: Yes Hx Hypercholesterolemia: Yes (Not on medication) Hx Pacemaker: No HX Cerebrovascular Accident: No Hx Seizures: No Hx Dementia: No Hx Diabetes: No Hx Gastrointestinal Disorders: No Hx Liver Disease: No Hx Genitourinary Disorders: No Hx Sexually Transmitted Disorders: No Hx Renal Disease (ESRD): No Hx Thyroid Disease: No Hx Human Immunodeficiency Virus (HIV): No (Negative September 2016) Hx Hepatitis C: No Hx Depression: No Hx Suicide Attempt: No Hx Bipolar Disorder: No Hx Schizophrenia: No - Patient Surgical History Past Surgical History: Yes Hx Neurologic Surgery: No Hx Cataract Extraction: No Hx Cardiac Surgery: No Hx Lung Surgery: No Hx Breast Surgery: No Hx Breast Biopsy: No Hx Abdominal Surgery: No Hx Appendectomy: No Hx Cholecystectomy: No Hx Genitourinary Surgery: No Hx Section: No Hx Orthopedic Surgery: No Other Surgical History: RIGHT LITTLE TOE AMPUTATION 2012 Anesthesia Reaction: No - Smoking Cessation Smoking history: Current every day smoker Have you smoked in the past 12 months: Yes Aproximately how many cigarettes per day: 6 Hx Chewing Tobacco Use: No Initiated information on smoking cessation: Yes 'Breaking Loose' booklet given: 01/23/20 Admission Physical Exam BHS - Vital Signs Vital Signs: Vital Signs - 24 hr 01/23/20 18:13 Temperature 96.6 F L Pulse Rate 70 Respiratory 11 Rate Blood Pressure 159/76 - Physical General Appearance: Yes: No Apparent Distress, Nourished, Appropriately Dressed, Sweating (mid perpsiration on forehead at rest), Anxious HEENTM: Yes: EOMI, Hearing grossly Normal, Normocephalic, Normal Voice Respiratory: Yes: Lungs Clear, Normal Breath Sounds, No Respiratory Distress, No Accessory Muscle Use Neck: Yes: Supple, Trachea in good position Breast: Yes: Breast Exam Deferred Cardiology: Yes: Regular Rhythm, Regular Rate Abdominal: Yes: Normal Bowel Sounds, Non Tender, Flat, Soft Genitourinary: Yes: Other (deferred) Back: Yes: Normal Inspection Extremities: Yes: Normal Inspection, Normal Range of Motion, Non-Tender, Tremors (felt not seen) Neurological: Yes: Fully Oriented, Alert, Motor Strength 5/5 Integumentary: Yes: Normal Color, Dry, Warm - Diagnostic (1) Alcohol dependence with uncomplicated withdrawal Current Visit: Yes Status: Acute (2) Substance-induced sleep disorder Current Visit: No Status: Acute (3) Cocaine dependence Current Visit: Yes Status: Chronic Qualifiers: Substance use status: uncomplicated Qualified Code(s): F14.20 - Cocaine dependence, uncomplicated (4) Hypercholesteremia Current Visit: No Status: Chronic (5) Hypertension Current Visit: No Status: Chronic Qualifiers: Hypertension type: essential hypertension Qualified Code(s): I10 - Essential (primary) hypertension (6) Nicotine dependence Current Visit: Yes Status: Chronic Qualifiers: Nicotine product type: cigarettes Substance use status: uncomplicated Qualified Code(s): F17.210 - Nicotine dependence, cigarettes, uncomplicated Cleared for Admission BHS - Detox or Rehab [facility] Level of Care: Medically Managed Detox Regimen/Protocol: Librium Breathalyzer - Breathalyzer Breathalyzer: 0 Urine Drug Screen - Test Device Lot number: [id number] Expiration date: 11/25/21 - Control Is test valid?: Yes - Results Drug screen NEGATIVE: No Urine drug screen results: THC-Marijuana, PUNEET-Cocaine, MTD-Methadone Inpatient Rehab Admission - Rehab Decision to Admit Inpatient rehab admission?: No
[2020-01-23] MEDS ORDERED: MAGNESIUM CITRATE 300 ML BOTTLE PO PRN (18:59)
[2020-01-23] MEDS ORDERED: chlordiazePOXIDE HCL 25 MG CAPSULE PO PRN (18:59)
[2020-01-23] MEDS ORDERED: ACETAMINOPHEN 325 MG TABLET (FP) PO PRN ×2 (18:59)
[2020-01-23] MEDS ORDERED: ONDANSETRON *ODT* 4 MG TABLET SL PRN (18:59)
[2020-01-23] MEDS ORDERED: MAGNESIUM HYDROX 2400MG/30ML ORAL SUSPENSION 30 ML CUP PO PRN (18:59)
[2020-01-23] MEDS ORDERED: IBUPROFEN 400 MG TABLET (FP) PO PRN (18:59)
[2020-01-23] MEDS ORDERED: BISMUTH SUBSALICYLATE 524 MG/30 ML UD PO PRN (18:59)
[2020-01-23] MEDS ORDERED: METHOCARBAMOL 500 MG TABLET PO PRN (18:59)
[2020-01-23] MEDS ORDERED: MAG HYDROX/AL HYDROX/SIMETH 30 ML UNIT-DOSE CUP PO PRN (18:59)
[2020-01-23] MEDS ORDERED: MENTHOL/PHENOL 1 EACH UD MM PRN (18:59)
[2020-01-23] MEDS: NICOTINE 14 MG/24 HOURS TOPICAL PATCH TD SCH (20:13)
[2020-01-23] MEDS: hydrOXYzine PAMOATE 25 MG CAPSULE (FP) PO SCH (22:39)
[2020-01-23] MEDS: THIAMINE HCL 100 MG TABLET (FP) PO SCH (22:39)
[2020-01-23] MEDS: MELATONIN 5 MG TABLETS PO SCH (22:39)
[2020-01-23] MEDS: chlordiazePOXIDE HCL 25 MG CAPSULE PO SCH (22:39)
[2020-01-24] MEDS: chlordiazePOXIDE HCL 25 MG CAPSULE PO SCH ×4 (06:55→22:30)
[2020-01-24] MEDS: hydrOXYzine PAMOATE 25 MG CAPSULE (FP) PO SCH ×5 (06:55→22:29)
--- NOTE | 2020-01-24 08:16 | PN ---
Teaching Attending Note Name of Resident: Nicole Grimm ATTENDING PHYSICIAN STATEMENT I saw and evaluated the patient. I reviewed the resident's note and discussed the case with the resident. I agree with the resident's findings and plan as documented. SUBJECTIVE: OBJECTIVE: ASSESSMENT AND PLAN: Agree with resident findings and plan for detox.
[2020-01-24] MEDS: PRENATAL VITAMINS W/ FOLIC ACID TABLET (FP) PO SCH (10:09)
[2020-01-24] MEDS: NICOTINE 14 MG/24 HOURS TOPICAL PATCH TD SCH (10:10)
--- NOTE | 2020-01-24 10:25 | PN ---
S CIWA - CIWA Score Nausea/Vomitin-No Nausea/No Vomiting Muscle Tremors: 2 Anxiety: 3 Agitation: 0-Normal Activity Paroxysmal Sweats: 3 Orientation: 0-Oriented Tacttile Disturbances: 0-None Auditory Disturbances: 0-None Visual Disturbances: 0-None Headache: 2-Mild CIWA-Ar Total Score: 10 BHS Progress Note (SOAP) Subjective: c/o anxiety, sweats, headache, and shakes. Objective: 01/24/20 10:23 Vital Signs 01/24/20 01/24/20 05:33 08:54 Temperature 98.4 F 96.8 F L Pulse Rate 66 77 Respiratory 18 18 Rate Blood Pressure 159/88 154/93 O2 Sat by Pulse 99 99 Oximetry (%) 01/24/20 12:01 Laboratory Last Values WBC 6.6 K/mm3 (4.0-10.0) 01/24/20 07:35 RBC 3.63 M/mm3 (4.00-5.60) L 01/24/20 07:35 Hgb 12.4 GM/dL (11.7-16.9) 01/24/20 07:35 Hct 36.6 % (35.4-49) 01/24/20 07:35 MCV 100.8 fl (80-96) H 01/24/20 07:35 MCH 34.0 pg (25.7-33.7) H 01/24/20 07:35 MCHC 33.8 g/dl (32.0-35.9) 01/24/20 07:35 RDW 12.3 % (11.9-15.9) 01/24/20 07:35 Plt Count 347 K/MM3 (134-434) D 01/24/20 07:35 MPV 10.4 fl (7.5-11.1) 01/24/20 07:35 Sodium 141 mmol/L (136-145) 01/24/20 07:35 Potassium 4.1 mmol/L (3.5-5.1) 01/24/20 07:35 Chloride 109 mmol/L (98-107) H 01/24/20 07:35 Carbon Dioxide 26 mmol/L (21-32) 01/24/20 07:35 Anion Gap 5 MMOL/L (8-16) L 01/24/20 07:35 BUN 11.2 mg/dL (7-18) 01/24/20 07:35 Creatinine 1.0 mg/dL (0.55-1.3) 01/24/20 07:35 Est GFR (CKD-EPI)AfAm 91.78 01/24/20 07:35 Est GFR (CKD-EPI)NonAf 79.19 01/24/20 07:35 Random Glucose 96 mg/dL (74-106) 01/24/20 07:35 Calcium 9.1 mg/dL (8.5-10.1) 01/24/20 07:35 Total Bilirubin 0.6 mg/dL (0.2-1) 01/24/20 07:35 AST 18 U/L (15-37) 01/24/20 07:35 ALT 17 U/L (13-61) 01/24/20 07:35 Alkaline Phosphatase 71 U/L (45-117) 01/24/20 07:35 Total Protein 6.2 g/dl (6.4-8.2) L 01/24/20 07:35 Albumin 3.0 g/dl (3.4-5.0) L 01/24/20 07:35 Labs noted. Assessment: 01/24/20 10:24 AOX3, in no acute respiratory distress. Full ROM, ambulating in the unit. Withdrawal symptoms. Plan: continue detox.
[2020-01-24 10:31] LABS: HEMATOCRIT 36.6 % (35.4-49); HEMOGLOBIN 12.4 GM/dL (11.7-16.9); MCHC 33.8 g/dl (32.0-35.9); MEAN CELL VOLUME 100.8 fl (80-96); MEAN PLT VOLUME 10.4 fl (7.5-11.1); PLATELET COUNT 347 K/MM3 (134-434); RBC 3.63 M/mm3 (4.00-5.60); RDW 12.3 % (11.9-15.9); WHITE BLOOD COUNT 6.6 K/mm3 (4.0-10.0)
[2020-01-24 10:38] LABS: BILIRUBIN,TOTAL 0.6 mg/dL (0.2-1); BLOOD UREA NITROGEN 11.2 mg/dL (7-18); CALCIUM 9.1 mg/dL (8.5-10.1); POTASSIUM 4.1 mmol/L (3.5-5.1); TOT PROT 6.2 g/dl (6.4-8.2)
--- NOTE | 2020-01-24 12:02 | CONSULT ---
[facility] Psychiatric Consult - Data Date of interview: 01/24/20 Admission source: [facility] Identifying data: Revisit to [facility] and admission to [address] [place] [address] for this 64 y/o AA male self-referred for detoxification treatment. BRENDA issues : alcohol, cocaine, nicotine, cannabis. Patient is single, no dependents, domiciled, unemployed and supported on SSI benefits. Substance Abuse History: Discussed with the patient. BRENDA profile as follows : Alcohol. Substance amount: 12 beers 24 oz. Frequency of use: Daily. Substance route: Oral. Date of Last Use: 01/23/20 (started age 11). Cocaine- Powder. Substance amount: $150. Frequency of use: Daily. Substance route: Smoking. Date of Last Use: 01/23/20 (started age 35). Nicotine. Substance amount: 6 cig. Frequency of use: Daily. Substance route: Smoking. Date of Last Use: 01/23/20 (started age 11). - Last Treatment. Date of last treatment: 10/23- 11/06/28 completed. Treatment type: Substance Use Disorder (BRENDA). Where was last treatment: Rehab. - Past Medical History. Cardiovascular: Yes: HTN, Hyperlipdemia. - Smoking History. Smoking history: Current every day smoker. Have you smoked in the past 12 months: Yes. Approximately how many cigarettes per day: 6. - Alcohol/Substance Use. Hx Alcohol Use: Yes (consumes 6-7 beers per day). Alcohol. Substance amount: 12 beers 24 oz. Frequency of use: Daily. Substance route: Oral. Date of Last Use: 01/23/20 (started age 11). C ocaine- Powder. Substance amount: $150. Frequency of use: Daily. Substance route: Smoking. Date of Last Use: 01/23/20 (started age 35). Nicotine. Substance amount: 6 cigg. Frequency of use: Daily. Substance route: Smoking. Date of Last Use: 01/23/20 (started age 11). - Last Treatment. Date of last treatment: 10/23-11/06/28 completed. Treatment type: Substance Use Disorder (BRENDA). Where was last treatment: Rehab. History of multiple BRENDA treatment failures. Medical History: Medical profile is remarkable for past treatment of tuberculosis (INH + vit B6)hypertension, dyslipidemia and history of surgery (2013 : amputation of left little toe). Psychiatric History: Patient denies history of psychiatric hospitalizations, OPD care or suicide attempts. Physical/Sexual Abuse/Trauma History: Patient denies. Additional Comment: Urine drug screen results: THC-Marijuana, PUNEET-Cocaine, MTD-Methadone. Noted. Mental Status Exam - Mental Status Exam Alert and Oriented to: Time, Place, Person Cognitive Function: Good Patient Appearance: Well Groomed Mood: Withdrawn, Hopeful Affect: Appropriate, Normal Range Patient Behavior: Fatigued, Appropriate, Cooperative Speech Pattern: Clear, Appropriate Voice Loudness: Normal Thought Process: Intact, Goal Oriented Thought Disorder: Not Present Hallucinations: Denies Suicidal Ideation: Denies Homicidal Ideation: Denies Insight/Judgement: Poor Sleep: Well Appetite: Good Gait/Station: Normal Psychiatric Findings - Problem List ([place] 1, 2,3) (1) Alcohol dependence with uncomplicated withdrawal Current Visit: Yes Status: Acute (2) Cocaine dependence Current Visit: Yes Status: Chronic Qualifiers: Substance use status: uncomplicated Qualified Code(s): F14.20 - Cocaine dependence, uncomplicated (3) Cannabis dependence Current Visit: Yes Status: Acute (4) Nicotine dependence Current Visit: Yes Status: Chronic Qualifiers: Nicotine product type: cigarettes Substance use status: uncomplicated Qualified Code(s): F17.210 - Nicotine dependence, cigarettes, uncomplicated - Initial Treatment Plan Initial Treatment Plan: Psychoeducation. Sleep hygiene. Support. Detoxification. Observation.
[2020-01-24] MEDS: MELATONIN 5 MG TABLETS PO SCH (22:29)
[2020-01-24] MEDS: THIAMINE HCL 100 MG TABLET (FP) PO SCH (22:29)
[2020-01-25] MEDS: hydrOXYzine PAMOATE 25 MG CAPSULE (FP) PO SCH ×5 (06:32→22:37)
[2020-01-25] MEDS: chlordiazePOXIDE HCL 25 MG CAPSULE PO SCH ×4 (06:32→22:38)
[2020-01-25] MEDS: PRENATAL VITAMINS W/ FOLIC ACID TABLET (FP) PO SCH (10:36)
[2020-01-25] MEDS: NICOTINE 14 MG/24 HOURS TOPICAL PATCH TD SCH (10:36)
--- NOTE | 2020-01-25 12:29 | PN ---
S CIWA - CIWA Score Nausea/Vomitin-No Nausea/No Vomiting Muscle Tremors: 2 Anxiety: 2 Agitation: 0-Normal Activity Paroxysmal Sweats: 2 Orientation: 0-Oriented Tacttile Disturbances: 0-None Auditory Disturbances: 0-None Visual Disturbances: 0-None Headache: 2-Mild CIWA-Ar Total Score: 8 BHS Progress Note (SOAP) Subjective: c/o shakes, headache, anxiety, and sweats. Objective: 01/25/20 12:28 Vital Signs 01/25/20 08:52 Temperature 97.3 F L Pulse Rate 85 Respiratory 18 Rate Blood Pressure 152/96 Laboratory Last Values WBC 6.6 K/mm3 (4.0-10.0) 01/24/20 07:35 RBC 3.63 M/mm3 (4.00-5.60) L 01/24/20 07:35 Hgb 12.4 GM/dL (11.7-16.9) 01/24/20 07:35 Hct 36.6 % (35.4-49) 01/24/20 07:35 MCV 100.8 fl (80-96) H 01/24/20 07:35 MCH 34.0 pg (25.7-33.7) H 01/24/20 07:35 MCHC 33.8 g/dl (32.0-35.9) 01/24/20 07:35 RDW 12.3 % (11.9-15.9) 01/24/20 07:35 Plt Count 347 K/MM3 (134-434) D 01/24/20 07:35 MPV 10.4 fl (7.5-11.1) 01/24/20 07:35 Sodium 141 mmol/L (136-145) 01/24/20 07:35 Potassium 4.1 mmol/L (3.5-5.1) 01/24/20 07:35 Chloride 109 mmol/L (98-107) H 01/24/20 07:35 Carbon Dioxide 26 mmol/L (21-32) 01/24/20 07:35 Anion Gap 5 MMOL/L (8-16) L 01/24/20 07:35 BUN 11.2 mg/dL (7-18) 01/24/20 07:35 Creatinine 1.0 mg/dL (0.55-1.3) 01/24/20 07:35 Est GFR (CKD-EPI)AfAm 91.78 01/24/20 07:35 Est GFR (CKD-EPI)NonAf 79.19 01/24/20 07:35 Random Glucose 96 mg/dL (74-106) 01/24/20 07:35 Calcium 9.1 mg/dL (8.5-10.1) 01/24/20 07:35 Total Bilirubin 0.6 mg/dL (0.2-1) 01/24/20 07:35 AST 18 U/L (15-37) 01/24/20 07:35 ALT 17 U/L (13-61) 01/24/20 07:35 Alkaline Phosphatase 71 U/L (45-117) 01/24/20 07:35 Total Protein 6.2 g/dl (6.4-8.2) L 01/24/20 07:35 Albumin 3.0 g/dl (3.4-5.0) L 01/24/20 07:35 Syphilis Serology Non-reactive (NONREACTIVE) 01/24/20 07:35 COVID-19 (XANDER) Not detected (Not Detected) 01/23/20 19:45 Labs noted. Assessment: 01/25/20 12:28 AOX3, in no acute respiratory distress. Full ROM, ambulating in the unit. Withdrawal symptoms. Plan: continue detox.
[2020-01-25] MEDS: MELATONIN 5 MG TABLETS PO SCH (22:37)
[2020-01-25] MEDS: THIAMINE HCL 100 MG TABLET (FP) PO SCH (22:38)
[2020-01-26] MEDS ORDERED: chlordiazePOXIDE HCL 10 MG CAPSULE PO PRN
[2020-01-26] MEDS: chlordiazePOXIDE HCL 10 MG CAPSULE PO SCH ×4 (06:07→22:13)
[2020-01-26] MEDS: hydrOXYzine PAMOATE 25 MG CAPSULE (FP) PO SCH ×5 (06:07→22:13)
[2020-01-26] MEDS: PRENATAL VITAMINS W/ FOLIC ACID TABLET (FP) PO SCH (10:42)
[2020-01-26] MEDS: NICOTINE 14 MG/24 HOURS TOPICAL PATCH TD SCH (10:42)
[2020-01-26] MEDS: NICOTINE POLACRILEX 2 MG GUM BUC PRN (15:35)
--- NOTE | 2020-01-26 16:03 | PN ---
S CIWA - CIWA Score Nausea/Vomitin-Mild Nausea/No Vomiting Muscle Tremors: 1-None Visible, but [place] Anxiety: 1-Mildly Anxious Agitation: 1-Slight > Activity Paroxysmal Sweats: 1-Minimal Palms Moist Orientation: 0-Oriented Tacttile Disturbances: 0-None Auditory Disturbances: 0-None Visual Disturbances: 0-None Headache: 1-Very Mild CIWA-Ar Total Score: 6 BHS Progress Note (SOAP) Subjective: 64 years old male was admitted on 01/23/20 for alcohol withdrawal sx management treating with librium detox regiment feels ok today ate breakfast and lunch in room tolerated food well encourage discussing aftercare with staff mr mcmahon prefers to go to [facility] for alcohol abuse treatment Objective: 01/27/20 08:22 Vital Signs - 24 hr 01/26/20 01/26/20 01/26/20 10:00 12:39 16:49 Temperature 97.1 F L 97.3 F L 97.7 F Pulse Rate 88 90 71 Respiratory 18 20 18 Rate Blood Pressure 168/98 146/92 151/86 O2 Sat by Pulse 100 Oximetry (%) 01/26/20 20:50 Temperature 97.3 F L Pulse Rate 90 Respiratory 16 Rate Blood Pressure 174/100 H O2 Sat by Pulse 100 Oximetry (%) Laboratory Tests 01/23/20 01/24/20 01/24/20 19:45 07:35 07:35 WBC 6.6 RBC 3.63 L Hgb 12.4 Hct 36.6 MCV 100.8 H MCH 34.0 H MCHC 33.8 RDW 12.3 Plt Count 347 D MPV 10.4 Sodium 141 Potassium 4.1 Chloride 109 H Carbon Dioxide 26 Anion Gap 5 L BUN 11.2 Creatinine 1.0 Est GFR (CKD-EPI)AfAm 91.78 Est GFR (CKD-EPI)NonAf 79.19 Random Glucose 96 Calcium 9.1 Total Bilirubin 0.6 AST 18 ALT 17 Alkaline Phosphatase 71 Total Protein 6.2 L Albumin 3.0 L Syphilis Serology COVID-19 (XANDER) Not detected 01/24/20 07:35 WBC RBC Hgb Hct MCV MCH MCHC RDW Plt Count MPV Sodium Potassium Chloride Carbon Dioxide Anion Gap BUN Creatinine Est GFR (CKD-EPI)AfAm Est GFR (CKD-EPI)NonAf Random Glucose Calcium Total Bilirubin AST ALT Alkaline Phosphatase Total Protein Albumin Syphilis Serology Non-reactive COVID-19 (XANDER) lab noted bp elevation resume home medication amlodipine 10 mg po adding clonidine 0.1 mg po prn q6h 01/27/20 08:25 Assessment: 01/27/20 08:26 alcohol withdrawal hypertension Plan: librium regiment amlodipine 10 mg po clondine 0.1 mg po prn
[2020-01-26] MEDS: MELATONIN 5 MG TABLETS PO SCH (22:13)
[2020-01-26] MEDS: THIAMINE HCL 100 MG TABLET (FP) PO SCH (22:13)
[2020-01-27] MEDS: chlordiazePOXIDE HCL 10 MG CAPSULE PO SCH ×2 (06:17→17:40)
[2020-01-27] MEDS: hydrOXYzine PAMOATE 25 MG CAPSULE (FP) PO SCH ×5 (06:17→22:21)
[2020-01-27] MEDS: amLODIPine BESYLATE 10 MG TABLET (FP) PO SCH (09:54)
[2020-01-27] MEDS: cloNIDine HCL 0.1 MG TABLET PO PRN ×2 (09:54→17:41)
[2020-01-27] MEDS: NICOTINE 14 MG/24 HOURS TOPICAL PATCH TD SCH (09:54)
[2020-01-27] MEDS: PRENATAL VITAMINS W/ FOLIC ACID TABLET (FP) PO SCH (09:54)
--- NOTE | 2020-01-27 10:54 | PN ---
S CIWA - CIWA Score Nausea/Vomitin-No Nausea/No Vomiting Muscle Tremors: 1-None Visible, but [place] Anxiety: 1-Mildly Anxious Agitation: 0-Normal Activity Paroxysmal Sweats: No Perspiration Orientation: 0-Oriented Tacttile Disturbances: 0-None Auditory Disturbances: 0-None Visual Disturbances: 1-Very Mild Sensitivity Headache: 1-Very Mild CIWA-Ar Total Score: 4 BHS Progress Note (SOAP) Subjective: 64 years old male was admitted on 01/23/20 for alcohol withdrawal sx management treating with librium detox regiment feels better today discuss aftercare with staff mr mcmahon prefers to go to [facility] for alcohol abuse treatment mr mcmahon has long history of hypertension treated with amlodipine 10 mg po with mild effect adding lisinopril 5 mg po bid received one dose clonidine 0.1 mg morning today lisinopril stats 10 pm today continue monitoring bp Objective: 01/27/20 10:58 Vital Signs - 24 hr 01/26/20 01/26/20 01/26/20 12:39 16:49 20:50 Temperature 97.3 F L 97.7 F 97.3 F L Pulse Rate 90 71 90 Respiratory 20 18 16 Rate Blood Pressure 146/92 151/86 174/100 H O2 Sat by Pulse 100 100 Oximetry (%) 01/27/20 08:30 Temperature 97.1 F L Pulse Rate 84 Respiratory 18 Rate Blood Pressure 153/92 O2 Sat by Pulse Oximetry (%) Laboratory Tests 01/23/20 01/24/20 01/24/20 19:45 07:35 07:35 WBC 6.6 RBC 3.63 L Hgb 12.4 Hct 36.6 MCV 100.8 H MCH 34.0 H MCHC 33.8 RDW 12.3 Plt Count 347 D MPV 10.4 Sodium 141 Potassium 4.1 Chloride 109 H Carbon Dioxide 26 Anion Gap 5 L BUN 11.2 Creatinine 1.0 Est GFR (CKD-EPI)AfAm 91.78 Est GFR (CKD-EPI)NonAf 79.19 Random Glucose 96 Calcium 9.1 Total Bilirubin 0.6 AST 18 ALT 17 Alkaline Phosphatase 71 Total Protein 6.2 L Albumin 3.0 L Syphilis Serology COVID-19 (XANDER) Not detected 01/24/20 07:35 WBC RBC Hgb Hct MCV MCH MCHC RDW Plt Count MPV Sodium Potassium Chloride Carbon Dioxide Anion Gap BUN Creatinine Est GFR (CKD-EPI)AfAm Est GFR (CKD-EPI)NonAf Random Glucose Calcium Total Bilirubin AST ALT Alkaline Phosphatase Total Protein Albumin Syphilis Serology Non-reactive COVID-19 (XANDER) lab noted Assessment: 01/27/20 10:59 alcohol withdrawal hypertension Plan: librium regiment amlodipine 10mg po daily lisinopril 5 mg po bid
[2020-01-27] MEDS ORDERED: LISINOPRIL 5 MG TABLET PO SCH (11:00)
[2020-01-27] MEDS: THIAMINE HCL 100 MG TABLET (FP) PO SCH (22:21)
[2020-01-27] MEDS: LISINOPRIL 5 MG TABLET PO SCH (22:22)
[2020-01-27] MEDS: MELATONIN 5 MG TABLETS PO SCH (22:22)
[2020-01-28] MEDS ORDERED: chlordiazePOXIDE HCL 10 MG CAPSULE PO ONE (05:00)
[2020-01-28] MEDS: hydrOXYzine PAMOATE 25 MG CAPSULE (FP) PO SCH ×3 (07:37→13:16)
[2020-01-28] MEDS: amLODIPine BESYLATE 10 MG TABLET (FP) PO SCH (10:14)
[2020-01-28] MEDS: PRENATAL VITAMINS W/ FOLIC ACID TABLET (FP) PO SCH (10:14)
[2020-01-28] MEDS: LISINOPRIL 5 MG TABLET PO SCH (10:15)
[2020-01-28] MEDS: NICOTINE 14 MG/24 HOURS TOPICAL PATCH TD SCH (10:15)
--- NOTE | 2020-01-28 10:34 | DS ---
[facility] Detox Discharge Summary Admission Date: 01/23/20 Discharge Date: 01/28/20 - History Present History: Alcohol Dependence Additional Comments: 64 years old male was admitted on 01/23/20 for alcohol withdrawal sx management treated with librium detox regiment seen by psychiatrist no medical intervention long history of hypertension treated with amlodipine 10 mg po daily and lisinoprin 5 mg po bid mr mcamhon received clonidine 0.1 mg around 6 pm yesterday systolic below 110 around 9 pm hold lisinopril 10pm mr mcmahon has completed the librium regiment and is tolerated well General Appearance: Yes: No Apparent Distress, Nourished, Appropriately Dressed, no Sweating, mild Anxious HEENTM: Yes: EOMI, Hearing grossly Normal, Normocephalic, Normal Voice Respiratory: Yes: Lungs Clear, Normal Breath Sounds, No Respiratory Distress, No Accessory Muscle Use Neck: Yes: Supple, Trachea in good position Breast: Yes: Breast Exam Deferred Cardiology: Yes: Regular Rhythm, Regular Rate Abdominal: Yes: Normal Bowel Sounds, Non Tender, Flat, Soft Genitourinary: Yes: Other (deferred) Back: Yes: Normal Inspection Extremities: Yes: Normal Inspection, Normal Range of Motion, Non-Tender, Tremors (felt not seen) Neurological: Yes: Fully Oriented, Alert, Motor Strength 5/5 Integumentary: Yes: Normal Color, Dry, Warm Pertinent Past History: time for discharge 44 minutes transferred order set from detox to rehab - Physical Exam Results Vital Signs: Vital Signs Temperature 98.0 F 01/28/20 08:41 Pulse Rate 92 H 01/28/20 08:41 Respiratory Rate 18 01/28/20 08:41 Blood Pressure 148/82 01/28/20 08:41 O2 Sat by Pulse Oximetry (%) 100 01/28/20 06:31 Pertinent Admission Physical Exam Findings: alcohol withdrawal Vital Signs - 24 hr 01/27/20 01/27/20 01/28/20 16:50 21:00 06:31 Temperature 97.3 F L 97.3 F L 97.7 F Pulse Rate 78 79 60 Respiratory 18 16 18 Rate Blood Pressure 164/93 95/59 L 112/66 O2 Sat by Pulse 97 100 Oximetry (%) 01/28/20 08:41 Temperature 98.0 F Pulse Rate 92 H Respiratory 18 Rate Blood Pressure 148/82 O2 Sat by Pulse Oximetry (%) Laboratory Tests 01/23/20 01/24/20 01/24/20 19:45 07:35 07:35 WBC 6.6 RBC 3.63 L Hgb 12.4 Hct 36.6 MCV 100.8 H MCH 34.0 H MCHC 33.8 RDW 12.3 Plt Count 347 D MPV 10.4 Sodium 141 Potassium 4.1 Chloride 109 H Carbon Dioxide 26 Anion Gap 5 L BUN 11.2 Creatinine 1.0 Est GFR (CKD-EPI)AfAm 91.78 Est GFR (CKD-EPI)NonAf 79.19 Random Glucose 96 Calcium 9.1 Total Bilirubin 0.6 AST 18 ALT 17 Alkaline Phosphatase 71 Total Protein 6.2 L Albumin 3.0 L Syphilis Serology COVID-19 (XANDER) Not detected 01/24/20 07:35 WBC RBC Hgb Hct MCV MCH MCHC RDW Plt Count MPV Sodium Potassium Chloride Carbon Dioxide Anion Gap BUN Creatinine Est GFR (CKD-EPI)AfAm Est GFR (CKD-EPI)NonAf Random Glucose Calcium Total Bilirubin AST ALT Alkaline Phosphatase Total Protein Albumin Syphilis Serology Non-reactive COVID-19 (XANDER) lab noted - Treatment Hospital Course: Detox Protocol Followed, Detoxed Safely, Responded well, Discharged Condition Good, Rehab Referral Accepted Patient has Accepted [facility] - Medication Discharge Medications: Ambulatory Orders Amlodipine Besylate [Norvasc -] 10 mg PO DAILY #30 tablet 11/05/18 Atorvastatin Ca [Lipitor] 20 mg PO HS #14 tablet 11/05/18 Lisinopril [Prinivil] 5 mg PO BID 01/28/20 - Diagnosis (1) Substance induced mood disorder Current Visit: Yes Status: Suspected (2) Alcohol dependence with uncomplicated withdrawal Current Visit: Yes Status: Acute (3) Nicotine dependence Current Visit: Yes Status: Acute Qualifiers: Nicotine product type: cigarettes Substance use status: in withdrawal Qualified Code(s): F17.213 - Nicotine dependence, cigarettes, with withdrawal (4) Hypertension Current Visit: Yes Status: Chronic Qualifiers: Hypertension type: essential hypertension Qualified Code(s): I10 - Essential (primary) hypertension - AMA Did Patient Leave Against Medical Advice: No CIWA Score - CIWA Score Nausea/Vomitin-No Nausea/No Vomiting Muscle Tremors: 1-None Visible, but [place] Anxiety: 0-No Anxiety, at Ease Agitation: 0-Normal Activity Paroxysmal Sweats: No Perspiration Orientation: 0-Oriented Tacttile Disturbances: 0-None Auditory Disturbances: 0-None Visual Disturbances: 0-None Headache: 1-Very Mild CIWA-Ar Total Score: 2
[2020-01-28] MEDS: NICOTINE POLACRILEX 2 MG GUM BUC PRN (13:17)
[2020-01-28 14:18] VITALS: BP 116/61; PULSE 89; TEMP 96.4
== END 2020-01-28 15:03 | disposition other institution (70) | DRG 774 ==
LOC: YASAS 16:52 → Y3N 19:19
PROVIDERS: ADMIT Allergy & Immunology; ATTEND Allergy & Immunology
PROC: HZ2ZZZZ Detoxification Services for Substance Abuse Treatment (ICD-10-PCS; principal; 2020-01-23)
DX: F10.230 Alcohol dependence with withdrawal, uncomplicated (principal); F14.20 Cocaine dependence, uncomplicated; F12.20 Cannabis dependence, uncomplicated; F17.210 Nicotine dependence, cigarettes, uncomplicated; F19.282 Other psychoactive substance dependence with psychoactive substance-induced sleep disorder; F19.24 Other psychoactive substance dependence with psychoactive substance-induced mood disorder; I10 Essential (primary) hypertension; E78.5 Hyperlipidemia, unspecified; E78.00 Pure hypercholesterolemia, unspecified; Z89.422 Acquired absence of other left toe(s); Z89.421 Acquired absence of other right toe(s); Z56.0 Unemployment, unspecified
CPT/HCPCS: 36415; 80053; 85027; 86780; J0735; U0003

== ENCOUNTER 2020-01-28 15:17 | Inpatient (IN) | payer OTHER ==
--- NOTE | 2020-01-28 10:37 | HP ---
[facility] Rehab Assess/Revision - Admission History Admitted to Rehab from: [facility] Date of Admission to Rehab: 01/28/20 - Findings Detox History & Physical reviewed: Yes Concur with findings: Yes Comments/Additional Findings: trasnferred from detox to rehab admission as per protocol Inpatient Rehab Admission - Rehab Decision to Admit Inpatient rehab admission?: Yes - Initial Determination Are CD services needed?: Yes Free of communicable disease: Yes Not in need of hospitalization: Yes - Rehab Admission Criteria Previous failed treatment: Yes Poor recovery environment: Yes Comorbidities: Yes Lacks judgement: Yes Patient is meeting Inpatient Rehab admission criteria:: Yes
[~2020-01-28 15:17] MED LIST: ACETAMINOPHEN 325 MG TABLET (FP) PO PRN; IBUPROFEN 400 MG TABLET (FP) PO PRN; LOPERAMIDE HCL 2 MG CAPSULE PO PRN; MAG HYDROX/AL HYDROX/SIMETH 30 ML UNIT-DOSE CUP PO PRN; MAGNESIUM CITRATE 300 ML BOTTLE PO PRN; MAGNESIUM HYDROX 2400MG/30ML ORAL SUSPENSION 30 ML CUP PO PRN; NICOTINE POLACRILEX 2 MG GUM BC PRN; P-EPHED 60MG/TRIPROLIDI 2.5MG TABLET PO PRN; guaiFENesin 200 MG/10 ML 10 ML UNIT-DOSE CUPS PO PRN
--- OUTSIDE RECORDS SUMMARY | 2020-01-28 15:24 | XMS ---
:1955 Author Organization [facility] Support Name Relationship Address Phone BHUPENDRA SONI OTHER RELATIONSHIP [place]Y [place] [address] UE Unavailable Unavailable Unavailable VIKAS MCDONALD FAMILY/OTHER [address] [place] [address] Re-disclosure Warning The records that you are about to access may contain information from federally- assisted alcohol or drug abuse programs. If such information is present, then the following federally mandated warning applies: This information has been disclosed to you from records protected by federal confidentiality rules (42 CFR part 2). The federal rules prohibit you from making any further disclosure of this information unless further disclosure is expressly permitted by the written consent of the person to whom it pertains or as otherwise permitted by 42 CFR part 2. A general authorization for the release of medical or other information is NOT sufficient for this purpose. The Federal rules restrict any use of the information to criminally investigate or prosecute any alcohol or drug abuse patient.The records that you are about to access may contain highly sensitive health information, the redisclosure of which is protected by Article 27-F of the [facility] Public Health law. If you continue you may haveaccess to information: Regarding HIV / AIDS; Provided by facilities licensed or operated by the [facility] Office of Mental Health; or Provided by the [facility] Office for People With Developmental Disabilities. If such information is present, then the following [facility] mandated warning applies: This information has been disclosed to you from confidential records which are protected by state law. State law prohibits you from making any further disclosure of this information without the specific written consent of the person to whom it pertains, or as otherwise permitted by law. Any unauthorized further disclosure in violation of state law may result in a fine or assisted sentence or both. A general authorization for the release of medical or other information is NOT sufficient authorization for further disclosure. Insurance Providers Payer name Policy type Policy ID Covered Covered alliance party's Policy P slim / Coverage alliance party ID relationship to [employer] ormation type davidson BEACON [id number] SP [id number] [facility] [employer] [id number] SP [id number] [facility] Results ID Date Data Source [id number] 01/23/2020 07:45:00 PM EDT [facility] Name Value Range Interpretation Description Data Sup porting Code Source(s) Document(s ) SARS [facility] coronavirus 2 RNA This lab was ordered by [facility] bo Bill Fay and reported by [facility]. ID Date Data Source [id number] 01/10/2020 02:08:00 PM EDT [facility] Name Value Range Interpretation Code Description Data Hilary rce(s) Supporting Document(s ) Overall [facility] Result: This lab was ordered by [facility] and reported by [facility]. ID Date Data Source [id number] 10/08/2019 12:00:00 AM EDT [facility] Name Value Range Interpretation Code Description Data Hilary rce(s) Supporting Document(s ) 2019-nCoV [facility] RNA XXX [facility]ANDER+probe- Imp [facility] and reported by [employer] Procedure
--- OUTSIDE RECORDS SUMMARY | 2020-01-28 15:24 | XMS ---
:1955 Author Organization [facility] Support Name Relationship Address Phone BHUPENDRA SONI OTHER RELATIONSHIP [place] [place] [address] UE Unavailable Unavailable Unavailable VIKAS MCDONALD FAMILY/OTHER [address] [phone] [place] [address] Re-disclosure Warning The records that you are [...] is protected by Article 27-F of the [facility] Public Health law. If you continue you may haveaccess to information: Regarding HIV / AIDS; Provided by facilities licensed or operated by the [facility] Office of Mental Health; or Provided by the [facility] Office for People With Developmental Disabilities. If such information is present, then the following [facility] mandated warning applies: This information has [...] law may result in a fine or shelter sentence or both. A general authorization for the release of medical or other information is NOT sufficient authorization for further disclosure. Insurance Providers Payer name Policy type Policy ID Covered Covered constitution party's Policy P slim / Coverage constitution party ID relationship to [employer] ormation type davidson BEACON [id number] SP [id number] [facility] [employer] [id number] SP [id number] [employer] Results ID Date Data Source [id number] 01/23/2020 07:45:00 PM EDT [facility] Name Value Range Interpretation Description Data Sup porting Code Source(s) Document(s ) SARS [facility] coronavirus 2 RNA This lab was ordered by [facility] bo Bill Fay and reported by [facility]. ID Date Data Source [id number] 01/10/2020 02:08:00 PM EDT [facility] Name Value Range Interpretation Code Description Data Hilary rce(s) Supporting Document(s ) Overall [facility] Result: This lab was ordered by [facility] and reported by [facility]. ID Date Data Source [id number] 10/08/2019 12:00:00 AM EDT [facility] Name Value Range Interpretation Code Description Data Hilary rce(s) Supporting Document(s ) 2019-nCoV [facility] RNA XXX [facility]ANDER+probe- Imp This lab was [facility] and reported by [employer] Procedure
--- NOTE | 2020-01-28 16:04 | PN ---
[facility] Progress Note Note: Pt is a 64 y/o male with a hx of BRENDA admitted to rehab today from [address] [place] [address] after completing detox. pt requesting cane for ambulation stating he uses cane outside. Hx PPD+. 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 skin:dry and dark discoloration on left hand>right. BRENDA New Rehab pt increase po fluids maintain safety cane as requested CXR in a.m, hx ppd+
[2020-01-28] MEDS: MELATONIN 5 MG TABLETS PO SCH (21:02)
[2020-01-28] MEDS: THIAMINE HCL 100 MG TABLET (FP) PO SCH (21:03)
[2020-01-28] MEDS: LISINOPRIL 5 MG TABLET PO SCH (21:03)
[2020-01-29] MEDS: amLODIPine BESYLATE 10 MG TABLET (FP) PO SCH (09:17)
[2020-01-29] MEDS: PRENATAL VITAMINS W/ FOLIC ACID TABLET (FP) PO SCH (09:17)
[2020-01-29] MEDS: NICOTINE 14 MG/24 HOURS TOPICAL PATCH TD SCH (09:17)
[2020-01-29] MEDS: LISINOPRIL 5 MG TABLET PO SCH ×2 (09:18→21:05)
[2020-01-29] MEDS: MELATONIN 5 MG TABLETS PO SCH (21:05)
[2020-01-29] MEDS: THIAMINE HCL 100 MG TABLET (FP) PO SCH (21:05)
[2020-01-30] MEDS: LISINOPRIL 5 MG TABLET PO SCH ×2 (10:07→21:43)
[2020-01-30] MEDS: PRENATAL VITAMINS W/ FOLIC ACID TABLET (FP) PO SCH (10:08)
[2020-01-30] MEDS: amLODIPine BESYLATE 10 MG TABLET (FP) PO SCH (10:08)
[2020-01-30] MEDS: NICOTINE 14 MG/24 HOURS TOPICAL PATCH TD SCH (10:08)
[2020-01-30 10:30] LABS: CHOLESTEROL 182 mg/dL (50-200); HDL CHOLESTEROL 53 mg/dL (40-60); LDL CHOLESTEROL (ONLY SJRH) 120 mg/dL (5-100); TRIGLYCERIDES 89 mg/dL (0-150)
[2020-01-30] MEDS: THIAMINE HCL 100 MG TABLET (FP) PO SCH (21:43)
[2020-01-30] MEDS: MELATONIN 5 MG TABLETS PO SCH (21:43)
[2020-01-31] MEDS: amLODIPine BESYLATE 10 MG TABLET (FP) PO SCH (09:46)
[2020-01-31] MEDS: PRENATAL VITAMINS W/ FOLIC ACID TABLET (FP) PO SCH (09:46)
[2020-01-31] MEDS: LISINOPRIL 5 MG TABLET PO SCH ×2 (09:46→21:10)
[2020-01-31] MEDS: NICOTINE 14 MG/24 HOURS TOPICAL PATCH TD SCH (09:47)
[2020-01-31] MEDS: THIAMINE HCL 100 MG TABLET (FP) PO SCH (21:10)
[2020-01-31] MEDS: MELATONIN 5 MG TABLETS PO SCH (21:10)
[2020-02-01] MEDS: amLODIPine BESYLATE 10 MG TABLET (FP) PO SCH (09:26)
[2020-02-01] MEDS: LISINOPRIL 5 MG TABLET PO SCH ×2 (09:26→21:39)
[2020-02-01] MEDS: PRENATAL VITAMINS W/ FOLIC ACID TABLET (FP) PO SCH (09:26)
[2020-02-01] MEDS: NICOTINE 14 MG/24 HOURS TOPICAL PATCH TD SCH (09:27)
[2020-02-01] MEDS: THIAMINE HCL 100 MG TABLET (FP) PO SCH (21:39)
[2020-02-01] MEDS: MELATONIN 5 MG TABLETS PO SCH (21:39)
[2020-02-02] MEDS: amLODIPine BESYLATE 10 MG TABLET (FP) PO SCH (09:19)
[2020-02-02] MEDS: LISINOPRIL 5 MG TABLET PO SCH ×2 (09:19→21:00)
[2020-02-02] MEDS: PRENATAL VITAMINS W/ FOLIC ACID TABLET (FP) PO SCH (09:20)
[2020-02-02] MEDS: NICOTINE 14 MG/24 HOURS TOPICAL PATCH TD SCH (09:20)
[2020-02-02] MEDS: MELATONIN 5 MG TABLETS PO SCH (21:00)
[2020-02-02] MEDS: THIAMINE HCL 100 MG TABLET (FP) PO SCH (21:01)
[2020-02-03] MEDS: amLODIPine BESYLATE 10 MG TABLET (FP) PO SCH (09:59)
[2020-02-03] MEDS: LISINOPRIL 5 MG TABLET PO SCH ×2 (09:59→21:07)
[2020-02-03] MEDS: NICOTINE 14 MG/24 HOURS TOPICAL PATCH TD SCH (09:59)
[2020-02-03] MEDS: PRENATAL VITAMINS W/ FOLIC ACID TABLET (FP) PO SCH (09:59)
[2020-02-03] MEDS: MELATONIN 5 MG TABLETS PO SCH (21:07)
[2020-02-03] MEDS: THIAMINE HCL 100 MG TABLET (FP) PO SCH (21:07)
[2020-02-04] MEDS: amLODIPine BESYLATE 10 MG TABLET (FP) PO SCH (09:50)
[2020-02-04] MEDS: PRENATAL VITAMINS W/ FOLIC ACID TABLET (FP) PO SCH (09:50)
[2020-02-04] MEDS: NICOTINE 14 MG/24 HOURS TOPICAL PATCH TD SCH (09:50)
[2020-02-04] MEDS: LISINOPRIL 5 MG TABLET PO SCH ×2 (09:50→21:09)
[2020-02-04] MEDS: MELATONIN 5 MG TABLETS PO SCH (21:09)
[2020-02-04] MEDS: THIAMINE HCL 100 MG TABLET (FP) PO SCH (21:10)
[2020-02-05] MEDS: NICOTINE 14 MG/24 HOURS TOPICAL PATCH TD SCH (10:01)
[2020-02-05] MEDS: PRENATAL VITAMINS W/ FOLIC ACID TABLET (FP) PO SCH (10:01)
[2020-02-05] MEDS: LISINOPRIL 5 MG TABLET PO SCH ×2 (10:05→21:05)
[2020-02-05] MEDS: amLODIPine BESYLATE 10 MG TABLET (FP) PO SCH (10:05)
[2020-02-05] MEDS: THIAMINE HCL 100 MG TABLET (FP) PO SCH (21:05)
[2020-02-05] MEDS: MELATONIN 5 MG TABLETS PO SCH (21:05)
[2020-02-06] MEDS: PRENATAL VITAMINS W/ FOLIC ACID TABLET (FP) PO SCH (10:30)
[2020-02-06] MEDS: NICOTINE 14 MG/24 HOURS TOPICAL PATCH TD SCH (10:30)
[2020-02-06] MEDS: amLODIPine BESYLATE 10 MG TABLET (FP) PO SCH (10:30)
[2020-02-06] MEDS: LISINOPRIL 5 MG TABLET PO SCH ×2 (10:30→21:03)
[2020-02-06] MEDS: MELATONIN 5 MG TABLETS PO SCH (21:03)
[2020-02-06] MEDS: THIAMINE HCL 100 MG TABLET (FP) PO SCH (21:03)
[2020-02-07] MEDS: LISINOPRIL 5 MG TABLET PO SCH ×2 (09:39→21:42)
[2020-02-07] MEDS: PRENATAL VITAMINS W/ FOLIC ACID TABLET (FP) PO SCH (09:39)
[2020-02-07] MEDS: NICOTINE 14 MG/24 HOURS TOPICAL PATCH TD SCH (09:39)
[2020-02-07] MEDS: amLODIPine BESYLATE 10 MG TABLET (FP) PO SCH (09:39)
[2020-02-07] MEDS: THIAMINE HCL 100 MG TABLET (FP) PO SCH (21:42)
[2020-02-07] MEDS: MELATONIN 5 MG TABLETS PO SCH (21:42)
[2020-02-08] MEDS: PRENATAL VITAMINS W/ FOLIC ACID TABLET (FP) PO SCH (09:28)
[2020-02-08] MEDS: NICOTINE 14 MG/24 HOURS TOPICAL PATCH TD SCH (09:28)
[2020-02-08] MEDS: LISINOPRIL 5 MG TABLET PO SCH ×2 (09:29→21:06)
[2020-02-08] MEDS: amLODIPine BESYLATE 10 MG TABLET (FP) PO SCH (09:29)
[2020-02-08] MEDS: THIAMINE HCL 100 MG TABLET (FP) PO SCH (21:06)
[2020-02-08] MEDS: MELATONIN 5 MG TABLETS PO SCH (21:06)
[2020-02-09] MEDS: amLODIPine BESYLATE 10 MG TABLET (FP) PO SCH (09:53)
[2020-02-09] MEDS: LISINOPRIL 5 MG TABLET PO SCH ×2 (09:54→21:14)
[2020-02-09] MEDS: NICOTINE 14 MG/24 HOURS TOPICAL PATCH TD SCH (09:54)
[2020-02-09] MEDS: PRENATAL VITAMINS W/ FOLIC ACID TABLET (FP) PO SCH (09:54)
[2020-02-09] MEDS: MELATONIN 5 MG TABLETS PO SCH (21:14)
[2020-02-09] MEDS: THIAMINE HCL 100 MG TABLET (FP) PO SCH (21:14)
[2020-02-10 06:40] VITALS: BP 103/61; PULSE 71; TEMP 97.8
--- NOTE | 2020-02-10 08:54 | DS ---
[facility] Rehab Discharge Summary - [facility] Rehab Discharge Summary Admission Date: 01/28/20 Discharge Date: 02/10/20 - History Present History: Alcohol dependence - Discharge Physical Exam Vital Signs: Vital Signs Temperature 97.8 F 02/10/20 06:35 Pulse Rate 71 02/10/20 06:35 Respiratory Rate 18 02/10/20 06:35 Blood Pressure 103/61 02/10/20 06:35 O2 Sat by Pulse Oximetry (%) 95 02/10/20 06:35 Pertinent Admission Physical Exam Findings: Mr. Blackman is a 64 yo gentleman with a PMH of HTN who was admitted to rehab after a successful detox stay. He was detoxed from alchol and admitted to rehab. PE Gnl: WDWN, in no distress MS: nl mentation Motor: moves limbs well Coord: normal Gait: steady, cane on bed, walks well without cane Laboratory Tests 01/30/20 07:00 Triglycerides 89 Cholesterol 182 Total LDL Cholesterol 120 H HDL Cholesterol 53 Home Medication List Medication Instructions Recorded Confirmed Type Lisinopril [Prinivil] 5 mg PO BID 01/28/20 01/28/20 History Active Medications Generic Name Dose Route Start Last Admin Trade Name Freq PRN Reason Stop Dose Admin Acetaminophen 650 mg 01/28/20 10:37 Tylenol - PO Q4H PRN FEVER Al Hydroxide/Mg Hydroxide 30 ml 01/28/20 10:37 Mylanta Oral Suspension - PO Q6H PRN DYSPEPSIA Amlodipine Besylate 10 mg 01/29/20 10:00 02/09/20 09:53 Norvasc - PO 10 mg DAILY GLENNA Administration Guaifenesin 10 ml 01/28/20 10:37 Robitussin - PO Q6H PRN COUGH Ibuprofen 400 mg 01/28/20 10:37 Motrin - PO Q6H PRN Pain level 4-6 Lisinopril 5 mg 01/28/20 22:00 02/09/20 21:14 Prinivil PO 5 mg BID GLENNA Administration Loperamide HCl 4 mg 01/28/20 10:37 Imodium - PO Q6H PRN DIARRHEA Magnesium Citrate 300 ml 01/28/20 10:37 Citroma - PO Q48H PRN CONSTIPATION Magnesium Hydroxide 30 ml 01/28/20 10:37 Milk Of Magnesia - PO DAILY PRN CONSTIPATION Melatonin 5 mg 01/28/20 22:00 02/09/20 21:14 Melatonin PO 5 mg HS GLENNA Administration Nicotine 14 mg 01/29/20 10:00 02/09/20 09:54 Nicoderm Patch - TD 14 mg DAILY GLENNA Administration Nicotine Polacrilex 2 mg 01/28/20 10:37 Nicorette Gum - BC Q2H PRN NICOTINE REPLACEMENT RX Multivit/Folic Acid/Iron 1 tab 01/29/20 10:00 02/09/20 09:54 Vitamins (Sjr) - PO 1 tab DAILY GLENNA Administration Pseudoephedrine/Triprolidine 1 combo 01/28/20 10:37 Actifed - PO TID PRN NASAL CONGESTION Thiamine HCl 100 mg 01/28/20 22:00 02/09/20 21:14 Vitamin B1 - PO 100 mg HS GLENNA Administration - Treatment Discharge Condition: Discharge condition good, Rehabilitated safely, Responded well, Outpatient referral accepted - Medication Discharge Medications: Ambulatory Orders Amlodipine Besylate [Norvasc -] 10 mg PO DAILY 30 Days #30 tablet 02/10/20 Atorvastatin Ca [Lipitor] 20 mg PO HS #14 tablet 02/10/20 Lisinopril [Prinivil] 5 mg PO BID 30 Days #60 tablet 02/10/20 - Discharge Instructions Diet, activity, other medical instructions: Diet: Activity: Other medical instructions:
== END 2020-02-10 09:44 | disposition home or self-care (01) | DRG 772 ==
LOC: YASAS 15:17 → Y5N 15:18
PROVIDERS: ADMIT Allergy & Immunology; ATTEND Allergy & Immunology
PROC: HZ42ZZZ Group Counseling for Substance Abuse Treatment, Cognitive-Behavioral (ICD-10-PCS; principal; 2020-01-28)
DX: F10.20 Alcohol dependence, uncomplicated (principal); I10 Essential (primary) hypertension; R76.11 Nonspecific reaction to tuberculin skin test without active tuberculosis; Z89.421 Acquired absence of other right toe(s); M20.61 Acquired deformities of toe(s), unspecified, right foot; M21.611 Bunion of right foot
CPT/HCPCS: 36415; 71046-TC-FY; 80061; 83721

== ENCOUNTER 2021-07-13 11:15 | Inpatient (IN) | payer OTHER ==
[2021-07-13] MEDS ORDERED: IBUPROFEN 400 MG TABLET (FP) PO PRN (12:45)
[2021-07-13] MEDS ORDERED: chlordiazePOXIDE HCL 25 MG CAPSULE PO PRN (12:45)
[2021-07-13] MEDS ORDERED: NICOTINE 10 MG CARTRIDGE (INHALER) IH PRN (12:45)
[2021-07-13] MEDS ORDERED: LOPERAMIDE HCL 2 MG CAPSULE PO PRN (12:45)
[2021-07-13] MEDS ORDERED: ACETAMINOPHEN 325 MG TABLET (FP) PO PRN ×2 (12:45)
[2021-07-13] MEDS ORDERED: MAGNESIUM CITRATE 300 ML BOTTLE PO PRN (12:45)
[2021-07-13] MEDS ORDERED: BISMUTH SUBSALICYLATE 524 MG/30 ML PO PRN (12:45)
[2021-07-13] MEDS ORDERED: ONDANSETRON *ODT* 4 MG TABLET SL PRN (12:45)
[2021-07-13] MEDS ORDERED: MAG HYDROX/AL HYDROX/SIMETH 30 ML UNIT-DOSE CUP PO PRN (12:45)
[2021-07-13] MEDS ORDERED: MENTHOL/PHENOL 1 EACH UD MM PRN (12:45)
[2021-07-13] MEDS ORDERED: MAGNESIUM HYDROX 2400MG/30ML ORAL SUSPENSION 30 ML CUP PO PRN (12:45)
[2021-07-13 13:20] VITALS: BMI 21.7
[2021-07-13] MEDS: hydrOXYzine PAMOATE 25 MG CAPSULE (FP) PO SCH ×3 (15:43→22:47)
[2021-07-13] MEDS: PRENATAL VITAMINS W/ FOLIC ACID TABLET (FP) PO SCH (15:44)
[2021-07-13] MEDS: NICOTINE 7 MG/24 HOURS TOPICAL PATCH TD SCH (15:44)
[2021-07-13] MEDS: chlordiazePOXIDE HCL 25 MG CAPSULE PO SCH ×3 (17:50→22:48)
[2021-07-13 17:56] LABS: CALCIUM 9.7 mg/dL (8.5-10.1)
[2021-07-13 17:57] LABS: ALBUMIN 3.5 g/dl (3.4-5.0); HEMATOCRIT 42.6 % (35.4-49); MCHC 32.8 g/dl (32.0-35.9); MEAN CELL VOLUME 100.5 fl (80-96); MEAN PLT VOLUME 10.6 fl (7.5-11.1); PLATELET COUNT 354 10^3/uL (134-434); RBC 4.24 M/mm3 (4.00-5.60); RDW 13.1 % (11.9-15.9); WHITE BLOOD COUNT 5.5 K/mm3 (4.0-10.0)
[2021-07-13 17:59] LABS: BLOOD UREA NITROGEN 11.1 mg/dL (7-18)
[2021-07-13 18:02] LABS: CREATININE 1.2 mg/dL (0.55-1.3)
[2021-07-13 18:03] LABS: BILIRUBIN,TOTAL 0.3 mg/dL (0.2-1); TOT PROT 7.3 g/dl (6.4-8.2)
[2021-07-13] MEDS: MINERAL OIL/PET HY-PHL TOPICAL OINTMENT 454 GM JAR TP SCH (22:47)
[2021-07-13] MEDS: LISINOPRIL 5 MG TABLET PO SCH (22:47)
[2021-07-13] MEDS: THIAMINE HCL 100 MG TABLET (FP) PO SCH (22:47)
[2021-07-13] MEDS: ATORVASTATIN CA 20 MG TABLET (FP) PO SCH (22:47)
[2021-07-13] MEDS: MELATONIN 5 MG TABLETS PO SCH (22:47)
[2021-07-14] MEDS: hydrOXYzine PAMOATE 25 MG CAPSULE (FP) PO SCH ×5 (06:34→23:45)
[2021-07-14] MEDS: chlordiazePOXIDE HCL 25 MG CAPSULE PO SCH ×4 (06:34→23:44)
[2021-07-14] MEDS: PRENATAL VITAMINS W/ FOLIC ACID TABLET (FP) PO SCH (10:44)
[2021-07-14] MEDS: amLODIPine BESYLATE 10 MG TABLET (FP) PO SCH (10:44)
[2021-07-14] MEDS: LISINOPRIL 5 MG TABLET PO SCH ×2 (10:44→23:09)
[2021-07-14] MEDS: NICOTINE 7 MG/24 HOURS TOPICAL PATCH TD SCH (10:44)
[2021-07-14] MEDS: MINERAL OIL/PET HY-PHL TOPICAL OINTMENT 454 GM JAR TP SCH ×2 (10:46→23:44)
[2021-07-14] MEDS: ATORVASTATIN CA 20 MG TABLET (FP) PO SCH (23:09)
[2021-07-14] MEDS: THIAMINE HCL 100 MG TABLET (FP) PO SCH (23:09)
[2021-07-14] MEDS: MELATONIN 5 MG TABLETS PO SCH (23:44)
[2021-07-15] MEDS: METHOCARBAMOL 500 MG TABLET PO PRN (05:12)
[2021-07-15] MEDS: hydrOXYzine PAMOATE 25 MG CAPSULE (FP) PO SCH ×5 (05:12→22:27)
[2021-07-15] MEDS: chlordiazePOXIDE HCL 25 MG CAPSULE PO SCH ×4 (05:12→22:25)
[2021-07-15] MEDS: PRENATAL VITAMINS W/ FOLIC ACID TABLET (FP) PO SCH (11:15)
[2021-07-15] MEDS: LISINOPRIL 5 MG TABLET PO SCH (11:16)
[2021-07-15] MEDS: MINERAL OIL/PET HY-PHL TOPICAL OINTMENT 454 GM JAR TP SCH ×2 (11:16→22:27)
[2021-07-15] MEDS: amLODIPine BESYLATE 10 MG TABLET (FP) PO SCH (11:16)
[2021-07-15] MEDS: NICOTINE 7 MG/24 HOURS TOPICAL PATCH TD SCH (11:16)
[2021-07-15] MEDS: ATORVASTATIN CA 20 MG TABLET (FP) PO SCH (22:25)
[2021-07-15] MEDS: THIAMINE HCL 100 MG TABLET (FP) PO SCH (22:25)
[2021-07-15] MEDS: LISINOPRIL 10 MG TABLET PO SCH (22:25)
[2021-07-15] MEDS: MELATONIN 5 MG TABLETS PO SCH (22:26)
[2021-07-16] MEDS ORDERED: chlordiazePOXIDE HCL 10 MG CAPSULE PO PRN
[2021-07-16] MEDS: hydrOXYzine PAMOATE 25 MG CAPSULE (FP) PO SCH ×5 (06:12→22:15)
[2021-07-16] MEDS: chlordiazePOXIDE HCL 10 MG CAPSULE PO SCH ×3 (06:12→19:46)
[2021-07-16] MEDS: MINERAL OIL/PET HY-PHL TOPICAL OINTMENT 454 GM JAR TP SCH ×2 (11:08→22:12)
[2021-07-16] MEDS: NICOTINE 7 MG/24 HOURS TOPICAL PATCH TD SCH (11:08)
[2021-07-16] MEDS: amLODIPine BESYLATE 10 MG TABLET (FP) PO SCH (11:09)
[2021-07-16] MEDS: PRENATAL VITAMINS W/ FOLIC ACID TABLET (FP) PO SCH (11:09)
[2021-07-16] MEDS: METHOCARBAMOL 500 MG TABLET PO PRN (11:09)
[2021-07-16] MEDS: LISINOPRIL 10 MG TABLET PO SCH ×2 (11:09→22:14)
[2021-07-16] MEDS: MELATONIN 5 MG TABLETS PO SCH (22:13)
[2021-07-16] MEDS: THIAMINE HCL 100 MG TABLET (FP) PO SCH (22:14)
[2021-07-17] MEDS: chlordiazePOXIDE HCL 10 MG CAPSULE PO SCH ×3 (01:12→17:40)
[2021-07-17] MEDS: ATORVASTATIN CA 20 MG TABLET (FP) PO SCH ×2 (01:13→22:55)
[2021-07-17] MEDS: amLODIPine BESYLATE 10 MG TABLET (FP) PO SCH (10:08)
[2021-07-17] MEDS: PRENATAL VITAMINS W/ FOLIC ACID TABLET (FP) PO SCH (10:08)
[2021-07-17] MEDS: MINERAL OIL/PET HY-PHL TOPICAL OINTMENT 454 GM JAR TP SCH ×2 (10:09→22:56)
[2021-07-17] MEDS: NICOTINE 7 MG/24 HOURS TOPICAL PATCH TD SCH (10:09)
[2021-07-17] MEDS: LISINOPRIL 10 MG TABLET PO SCH ×2 (10:09→22:55)
[2021-07-17] MEDS: THIAMINE HCL 100 MG TABLET (FP) PO SCH (22:55)
[2021-07-17] MEDS: MELATONIN 5 MG TABLETS PO SCH (22:56)
[2021-07-18] MEDS ORDERED: chlordiazePOXIDE HCL 10 MG CAPSULE PO ONE (05:00)
[2021-07-18] MEDS: PRENATAL VITAMINS W/ FOLIC ACID TABLET (FP) PO SCH (10:03)
[2021-07-18] MEDS: NICOTINE 7 MG/24 HOURS TOPICAL PATCH TD SCH (10:03)
[2021-07-18] MEDS: LISINOPRIL 10 MG TABLET PO SCH (10:03)
[2021-07-18] MEDS: MINERAL OIL/PET HY-PHL TOPICAL OINTMENT 454 GM JAR TP SCH (10:03)
[2021-07-18] MEDS: amLODIPine BESYLATE 10 MG TABLET (FP) PO SCH (10:03)
[2021-07-18 10:05] VITALS: BP 135/85; PULSE 88; TEMP 98.2
== END 2021-07-18 12:13 | disposition home or self-care (01) | DRG 897 ==
LOC: YASAS 11:15 → Y6N 14:16
PROVIDERS: ADMIT Allergy & Immunology; ATTEND Allergy & Immunology
PROC: HZ2ZZZZ Detoxification Services for Substance Abuse Treatment (ICD-10-PCS; principal; 2021-07-13)
DX: F10.230 Alcohol dependence with withdrawal, uncomplicated (principal); F14.20 Cocaine dependence, uncomplicated; F12.10 Cannabis abuse, uncomplicated; F17.210 Nicotine dependence, cigarettes, uncomplicated; G61.9 Inflammatory polyneuropathy, unspecified; G61.1 Serum neuropathy; I10 Essential (primary) hypertension; E78.00 Pure hypercholesterolemia, unspecified; E78.5 Hyperlipidemia, unspecified; R29.6 Repeated falls; Z99.89 Dependence on other enabling machines and devices; Z86.11 Personal history of tuberculosis
CPT/HCPCS: 36415; 71045-TC-FY; 80053; 85027; 86780; 87811; C9803-CS; U0003; U0005

== ENCOUNTER 2021-07-16 15:01 | Emergency (ER) | payer OTHER ==
[2021-07-16 15:18] VITALS: BP 145/68; PULSE 83; TEMP 98.3; BMI 22.0
[2021-07-16 17:28] LABS: BASO % 1.4 % (0-2.0); EOS % 2.8 % (0-4.5); HEMATOCRIT 39.2 % (35.4-49); HEMOGLOBIN 13.4 GM/dL (11.7-16.9); LYMPH % 20.6 % (8-40); MCH 33.6 pg (25.7-33.7); MCHC 34.1 g/dl (32.0-35.9); MEAN CELL VOLUME 98.7 fl (80-96); MEAN PLT VOLUME 10.3 fl (7.5-11.1); MONO % 7.5 % (3.8-10.2); NEUT % 67.7 % (42.8-82.8); PLATELET COUNT 309 10^3/uL (134-434); RBC 3.97 M/mm3 (4.00-5.60); RDW 12.9 % (11.9-15.9); WHITE BLOOD COUNT 8.5 K/mm3 (4.0-10.0)
[2021-07-16 17:49] LABS: ALBUMIN 3.6 g/dl (3.4-5.0); MAGNESIUM 2.1 mg/dL (1.8-2.4)
[2021-07-16 17:50] LABS: BLOOD UREA NITROGEN 12.5 mg/dL (7-18)
[2021-07-16 17:52] LABS: PHOSPHOROUS 3.6 mg/dL (2.5-4.9)
[2021-07-16 17:54] LABS: BILIRUBIN,TOTAL 0.2 mg/dL (0.2-1); TOT PROT 7.1 g/dl (6.4-8.2)
== END 2021-07-16 19:20 | disposition home or self-care (01) ==
LOC: JER 15:01
DX: M25.551 Pain in right hip (principal); W19.XXXA Unspecified fall, initial encounter
CPT/HCPCS: 36415; 70450-TC; 71046-TC-FY; 72170-TC-FY; 73502-TC-RT-FY; 80053; 83735; 84100; 85025; 99285-25

== ENCOUNTER 2022-02-23 11:02 | Inpatient (IN) | payer OTHER ==
[2022-02-23 11:26] VITALS: BMI 21.2
[2022-02-23] MEDS ORDERED: DICYCLOMINE HCL 10 MG CAPSULE PO PRN (13:11)
[2022-02-23] MEDS ORDERED: ONDANSETRON *ODT* 4 MG TABLET SL PRN (13:11)
[2022-02-23] MEDS ORDERED: hydrOXYzine PAMOATE 25 MG CAPSULE (FP) PO PRN (13:11)
[2022-02-23] MEDS ORDERED: IBUPROFEN 600 MG TABLET (FP) PO PRN (13:11)
[2022-02-23] MEDS ORDERED: LOPERAMIDE HCL 2 MG CAPSULE PO PRN (13:11)
[2022-02-23] MEDS ORDERED: MAGNESIUM CITRATE 300 ML BOTTLE PO PRN (13:11)
[2022-02-23] MEDS ORDERED: ACETAMINOPHEN 325 MG TABLET (FP) PO PRN ×2 (13:11)
[2022-02-23] MEDS ORDERED: IBUPROFEN 400 MG TABLET (FP) PO PRN (13:11)
[2022-02-23] MEDS ORDERED: NALOXONE HCL (KLOXXADO) 8 MG SPRAY NS PRN (13:11)
[2022-02-23] MEDS ORDERED: METHOCARBAMOL 500 MG TABLET PO PRN (13:11)
[2022-02-23] MEDS ORDERED: NICOTINE 10 MG CARTRIDGE (INHALER) IH PRN (13:11)
[2022-02-23] MEDS ORDERED: MAGNESIUM HYDROX 2400MG/30ML ORAL SUSPENSION 30 ML CUP PO PRN (13:11)
[2022-02-23] MEDS ORDERED: BENZOCAINE/MENTHOL (CHLORASEPTIC ) LOZENGE MM PRN (13:11)
[2022-02-23] MEDS ORDERED: MAG HYDROX/AL HYDROX/SIMETH 30 ML UNIT-DOSE CUP PO PRN (13:11)
[2022-02-23] MEDS ORDERED: BISMUTH SUBSALICYLATE 524 MG/30 ML PO PRN (13:11)
[2022-02-23] MEDS: PRENATAL VITAMINS W/ FOLIC ACID TABLET (FP) PO SCH (14:33)
[2022-02-23] MEDS: NICOTINE 14 MG/24 HOURS TOPICAL PATCH TD SCH (14:33)
[2022-02-23 16:01] LABS: CALCIUM 9.9 mg/dL (8.5-10.1)
[2022-02-23 16:02] LABS: ALBUMIN 2.7 g/dl (3.4-5.0); BLOOD UREA NITROGEN 17.7 mg/dL (7-18); HEMATOCRIT 33.8 % (35.4-49); HEMOGLOBIN 11.2 GM/dL (11.7-16.9); MCH 32.6 pg (25.7-33.7); MCHC 33.2 g/dl (32.0-35.9); MEAN PLT VOLUME 8.5 fl (7.5-11.1); PLATELET COUNT 781 10^3/uL (134-434); RBC 3.45 M/mm3 (4.00-5.60); RDW 13.8 % (11.9-15.9); WHITE BLOOD COUNT 7.3 K/mm3 (4.0-10.0)
[2022-02-23 16:05] LABS: CREATININE 1.2 mg/dL (0.55-1.3)
[2022-02-23 16:07] LABS: BILIRUBIN,TOTAL 0.2 mg/dL (0.2-1)
[2022-02-23] MEDS ORDERED: THIAMINE HCL 100 MG TABLET (FP) PO SCH (22:00)
[2022-02-23] MEDS ORDERED: MELATONIN 5 MG TABLETS PO SCH (22:00)
[2022-02-23] MEDS ORDERED: LISINOPRIL 5 MG TABLET PO ONE (22:41)
[2022-02-24 06:07] VITALS: RESP 18
[2022-02-24] MEDS: PRENATAL VITAMINS W/ FOLIC ACID TABLET (FP) PO SCH (10:43)
[2022-02-24] MEDS: NICOTINE 14 MG/24 HOURS TOPICAL PATCH TD SCH (10:43)
[2022-02-24 12:46] VITALS: BP 138/74; PULSE 77; TEMP 96.7
== END 2022-02-24 13:14 | disposition home or self-care (01) | DRG 896 ==
LOC: YASAS 11:02 → Y3N 13:27
PROVIDERS: ADMIT Allergy & Immunology; ATTEND Surgery
PROC: HZ2ZZZZ Detoxification Services for Substance Abuse Treatment (ICD-10-PCS; principal; 2022-02-23)
DX: F10.230 Alcohol dependence with withdrawal, uncomplicated (principal); U07.1 COVID-19; F11.20 Opioid dependence, uncomplicated; F14.20 Cocaine dependence, uncomplicated; F12.20 Cannabis dependence, uncomplicated; F17.210 Nicotine dependence, cigarettes, uncomplicated; I10 Essential (primary) hypertension; E78.5 Hyperlipidemia, unspecified; Z99.89 Dependence on other enabling machines and devices
CPT/HCPCS: 36415; 71046-TC-FY; 80053; 85027; 86780; 87811; C9803-CS; U0003; U0005

== ENCOUNTER 2023-01-23 12:16 | Inpatient (IN) | payer OTHER ==
[2023-01-23 13:11] VITALS: BMI 19.0
[2023-01-23] MEDS ORDERED: hydrOXYzine PAMOATE 25 MG CAPSULE (FP) PO PRN (13:56)
[2023-01-23] MEDS ORDERED: MAGNESIUM HYDROX 2400MG/30ML ORAL SUSPENSION 30 ML CUP PO PRN (13:56)
[2023-01-23] MEDS ORDERED: LOPERAMIDE HCL 2 MG CAPSULE PO PRN (13:56)
[2023-01-23] MEDS ORDERED: NALOXONE HCL 0.4 MG/ML VIAL IM PRN (13:56)
[2023-01-23] MEDS ORDERED: BENZONATATE 200 MG CAPSULE PO PRN (13:56)
[2023-01-23] MEDS ORDERED: IBUPROFEN 400 MG TABLET (FP) PO PRN (13:56)
[2023-01-23] MEDS ORDERED: NICOTINE POLACRILEX 2 MG GUM BUC PRN (13:56)
[2023-01-23] MEDS ORDERED: POLYETHYLENE GLYCOL (HEALTHYLAX) 3350 17 GM PACKET PO PRN (13:56)
[2023-01-23] MEDS ORDERED: ONDANSETRON *ODT* 4 MG TABLET SL PRN (13:56)
[2023-01-23] MEDS ORDERED: guaiFENesin 600 MG TABLET.ER (FP) PO PRN (13:56)
[2023-01-23] MEDS ORDERED: BISMUTH SUBSALICYLATE 262 MG/15 ML BTL PO PRN (13:56)
[2023-01-23] MEDS ORDERED: NALOXONE HCL (KLOXXADO) 8 MG SPRAY NS PRN (13:56)
[2023-01-23] MEDS ORDERED: ACETAMINOPHEN 325 MG TABLET (FP) PO PRN (13:56)
[2023-01-23] MEDS ORDERED: BENZOCAINE/MENTHOL (CHLORASEPTIC ) LOZENGE MM PRN (13:56)
[2023-01-23] MEDS ORDERED: MAG HYDROX/AL HYDROX/SIMETH 30 ML UNIT-DOSE CUP PO PRN (13:56)
[2023-01-23] MEDS: cloNIDine HCL 0.1 MG TABLET PO PRN (17:39)
[2023-01-23] MEDS: MELATONIN 5 MG TABLETS PO SCH (22:52)
[2023-01-23] MEDS: THIAMINE HCL 100 MG TABLET (FP) PO SCH (22:52)
[2023-01-24] MEDS: PRENATAL VITAMINS W/ FOLIC ACID TABLET (FP) PO SCH (10:09)
[2023-01-24] MEDS: IBUPROFEN 600 MG TABLET (FP) PO PRN (10:10)
[2023-01-24] MEDS: NICOTINE 21 MG/24 HOURS TOPICAL PATCH TD SCH (10:13)
[2023-01-24 12:11] LABS: HEMATOCRIT 40.5 % (35.4-49); HEMOGLOBIN 13.4 GM/dL (11.7-16.9); MCH 33.3 pg (25.7-33.7); MCHC 33.1 g/dl (32.0-35.9); MEAN CELL VOLUME 100.6 fl (80-96); MEAN PLT VOLUME 9.7 fl (7.5-11.1); PLATELET COUNT 391 10^3/uL (134-434); RBC 4.02 M/mm3 (4.00-5.60); RDW 12.8 % (11.9-15.9); WHITE BLOOD COUNT 7.3 K/mm3 (4.0-10.0)
[2023-01-24 13:15] LABS: POTASSIUM 4.6 mmol/L (3.5-5.1)
[2023-01-24 13:26] LABS: BLOOD UREA NITROGEN 13.2 mg/dL (7-18)
[2023-01-24 13:32] LABS: ALBUMIN 3.4 g/dl (3.4-5.0); CALCIUM 9.7 mg/dL (8.5-10.1)
[2023-01-24 13:36] LABS: CREATININE 0.9 mg/dL (0.55-1.3)
[2023-01-24 13:37] LABS: BILIRUBIN,TOTAL 0.4 mg/dL (0.2-1)
[2023-01-24] MEDS: MELATONIN 5 MG TABLETS PO SCH (22:29)
[2023-01-24] MEDS: cloNIDine HCL 0.1 MG TABLET PO PRN (22:29)
[2023-01-24] MEDS: THIAMINE HCL 100 MG TABLET (FP) PO SCH (22:29)
[2023-01-25] MEDS ORDERED: diazePAM 5 MG TABLET PO PRN (10:00)
[2023-01-25] MEDS: diazePAM 5 MG TABLET PO SCH ×3 (10:16→22:47)
[2023-01-25] MEDS: PRENATAL VITAMINS W/ FOLIC ACID TABLET (FP) PO SCH (10:16)
[2023-01-25] MEDS: IBUPROFEN 600 MG TABLET (FP) PO PRN (10:21)
[2023-01-25] MEDS: NICOTINE 21 MG/24 HOURS TOPICAL PATCH TD SCH (10:22)
[2023-01-25] MEDS: THIAMINE HCL 100 MG TABLET (FP) PO SCH (22:47)
[2023-01-25] MEDS: cloNIDine HCL 0.1 MG TABLET PO PRN (22:47)
[2023-01-25] MEDS: MELATONIN 5 MG TABLETS PO SCH (22:47)
[2023-01-26] MEDS: diazePAM 5 MG TABLET PO SCH ×4 (05:53→23:42)
[2023-01-26] MEDS: PRENATAL VITAMINS W/ FOLIC ACID TABLET (FP) PO SCH (10:27)
[2023-01-26] MEDS: NICOTINE 21 MG/24 HOURS TOPICAL PATCH TD SCH (10:28)
[2023-01-26] MEDS: cloNIDine HCL 0.1 MG TABLET PO PRN ×2 (15:02→18:13)
[2023-01-26] MEDS: MELATONIN 5 MG TABLETS PO SCH (23:41)
[2023-01-26] MEDS: THIAMINE HCL 100 MG TABLET (FP) PO SCH (23:42)
[2023-01-27] MEDS: diazePAM 5 MG TABLET PO SCH ×2 (06:03→13:06)
[2023-01-27] MEDS: NICOTINE 21 MG/24 HOURS TOPICAL PATCH TD SCH (09:54)
[2023-01-27] MEDS: PRENATAL VITAMINS W/ FOLIC ACID TABLET (FP) PO SCH (09:55)
[2023-01-27 13:26] VITALS: BP 176/72; PULSE 81; RESP 16; TEMP 97.7
[2023-01-28] MEDS ORDERED: diazePAM 5 MG TABLET PO SCH (06:00)
[2023-01-29] MEDS ORDERED: diazePAM 5 MG TABLET PO ONE (06:00)
== END 2023-01-27 13:35 | disposition left against medical advice (07) | DRG 894 ==
LOC: YASAS 12:16 → UNDOADMIN 15:31 → Y3N 15:31
PROVIDERS: ADMIT Allergy & Immunology; ATTEND Surgery
PROC: HZ2ZZZZ Detoxification Services for Substance Abuse Treatment (ICD-10-PCS; principal; 2023-01-23)
DX: F10.230 Alcohol dependence with withdrawal, uncomplicated (principal); F14.20 Cocaine dependence, uncomplicated; F19.282 Other psychoactive substance dependence with psychoactive substance-induced sleep disorder; F12.20 Cannabis dependence, uncomplicated; F17.210 Nicotine dependence, cigarettes, uncomplicated; G61.9 Inflammatory polyneuropathy, unspecified; G61.1 Serum neuropathy; I10 Essential (primary) hypertension; R03.0 Elevated blood-pressure reading, without diagnosis of hypertension; Z89.421 Acquired absence of other right toe(s); Z86.11 Personal history of tuberculosis
CPT/HCPCS: 36415; 80053; 82962; 85027; 86780; 87635; 87811; 93005; 93010

== ENCOUNTER 2023-01-26 19:21 | Emergency (ER) | payer OTHER ==
[2023-01-26 19:40] VITALS: BMI 21.2
[2023-01-26 22:56] VITALS: BP 142/83; PULSE 63; RESP 18; TEMP 97.8
== END 2023-01-27 01:48 | disposition home or self-care (01) ==
LOC: JER 19:21
DX: F10.230 Alcohol dependence with withdrawal, uncomplicated (principal); W01.198A Fall on same level from slipping, tripping and stumbling with subsequent striking against other object, initial encounter; Y93.01 Activity, walking, marching and hiking; Y92.9 Unspecified place or not applicable
CPT/HCPCS: 70450-TC; 99284-25